=== PATIENT | male | born 1955 | race Caucasian/White ===

== ENCOUNTER 2018-05-06 09:20 | Inpatient (IN) ==
[2018-05-06] MEDS ORDERED: Piperacillin/Tazobactam 3.375 GM in Water for inj. (sterile) 20 ML 20 ML IVP ONE (09:35)
--- NOTE | 2018-05-06 09:38 | Emergency Department Note ---
Disposition Clinical Impression: Diabetic foot ulcer, Dehydration, Acute kidney injury Disposition: Admitted As Inpatient Condition: Fair Forms: ED Satisfaction Letter Time of Disposition: 10:58 Skin/Abscess/FB HPI Chief complaint: ED Skin/Abscess/Foreign Body Stated complaint: RLE Infection / Fever from Wound Care Time Seen by Provider: 05/06/18 09:25 Source: patient Mode of arrival: ambulatory Limitations: no limitations Nursing Notes Reviewed: Yes Vital Signs Reviewed: Yes HPI Narrative: 62-year-old male presents to the emergency department from the wound care clinic. He was sent here because he was hypotensive at 76/40. Patient in August stepped on a nail as he does have diabetic neuropathy. He has been being followed by wound care as well as Dr. Paulino and podiatry. They said that they are worried that the redness is now going across his foot away from the wound and they are worried that the wound may be tunneling and patient may be in septic shock as he was hypotensive. Speak with family they said these been a low more weak over the last 2-3 days. They said he has had a fever of 100.4 last 2 days which has been being controlled with Motrin. Patient says the redness has not been going up his legs. Has no shortness of breath no chest pain. Patient says that he has no pain anywhere else. Patient was recently started 2 days ago on by mouth Levaquin family does not notice any improvement after being started on that. Patient otherwise has no complaints. Including no chills, nausea, vomiting, headache, blurry vision, neck pain, back pain, chest pain, shortness of breath, abdominal pain, changes in bowel movements, pain with urination, pain or tingling going down the arms or legs. Home Medications Medication Instructions Recorded Confirmed Gemfibrozil [Lopid] 600 mg PO BID 01/12/18 01/12/18 Insulin Glargine [Lantus] 23 unit SQ HS 01/12/18 01/12/18 Pregabalin [Lyrica] 200 mg PO TID 01/12/18 01/12/18 Acetaminophen [Tylenol] 1,000 mg PO Q6HR PRN 05/06/18 05/06/18 Cetirizine HCl [Zyrtec] 10 mg PO DAILY 05/06/18 05/06/18 Lisinopril [Zestril] 10 mg PO DAILY 05/06/18 05/06/18 Metformin HCl [Metformin HCl] 1,000 mg PO BID 05/06/18 05/06/18 Potassium 99 mg PO DAILY 05/06/18 05/06/18 Allergies Allergy/AdvReac Type Severity Reaction Status Date / Time loratadine [From Claritin-D] Allergy Hives Verified 05/06/18 10:50 pseudoephedrine Allergy Hives Verified 05/06/18 10:50 [From Claritin-D] All systems ED: reviewed and negative except as stated. Review of Systems: As Per [facility] Past Medical History - Past Medical History Attestation: Yes The following information was validated with the patient. Source: patient Medical history: Reports: diabetes, hyperlipidemia, hypertension, kidney stones Surgical history: Reports: orthopedic, other Psychiatric history: Reports: no psych history - Social History Smoking Status: Never smoker Alcohol use: Reports: none Drug use: Reports: none Physical Exam - General Limitations: no limitations General appearance: alert - Head Head exam: atraumatic, normocephalic, normal inspection - Eye Eye exam: Present: normal appearance, PERRL, EOMI - ENT ENT exam: normal exam, normal oropharynx, mucous membranes moist - Neck Neck exam: Present: normal inspection, full ROM, trachea midline - Chest Chest inspection: Present: normal inspection, symmetric chest wall rise - Respiratory Respiratory exam: Present: normal lung sounds bilaterally - Cardiovascular Cardiovascular exam: Present: regular rate, normal rhythm, normal heart sounds - Abdominal Exam Abdominal exam: Present: soft, Non-Tender. Absent: tenderness, distention, guarding, rebound, rigidity - Extremities Exam Extremities exam: Present: normal inspection, full ROM. Absent: tenderness, pedal edema - Expanded Lower Extremity Exam Knee exam: Present: normal inspection, full ROM Lower leg exam: Present: normal inspection, full ROM Ankle exam: Present: normal inspection, full ROM Foot/toe exam: Present: full ROM, other (3 cm ulcer on the medial aspect of the right foot no active bleeding. Mild erythema spreading across the dorsal portion of the foot. Mild warm to touch. Good pedal pulses. No erythema moving up the leg. No signs of crepitus while palpating the foot.) Neurovascular/Tendon exam: Present: normal capillary refill. Absent: pulse deficit, motor deficit, sensory deficit, tendon deficit - Back Exam Back exam: Present: normal inspection, full ROM. Absent: tenderness, CVA tenderness (R), CVA tenderness (L) - Neurological Exam Neurological exam: Present: alert, oriented X3 - Skin Skin exam: Present: warm, dry, intact, normal color Course Course Narrative: We will treat patient as a sepsis alert as patient was hypotensive and did have history of fevers and there has known infection and patient was sent here for possible sepsis by podiatry. We will get what cultures, CBC, BMP, lactate, x- ray of the right foot, anaerobic wound culture, chest x-ray, EKG. We will start patient on Zosyn and vancomycin broad-spectrum. Patient originally in triage and at the wound care clinic was mildly hypotensive at 70 and 80 systolic. After coming back to the room he was 110/75 so I will only give the patient 1 L bolus of IV fluids as there is possible history of CHF according to family. We will reevaluate patient after the IV bolus to see if he needs more if his pressure is more stabilized. Vital Signs Temperature 97.8 F 05/06/18 09:30 Pulse Rate 68 05/06/18 09:30 Respiratory Rate 16 05/06/18 09:30 Blood Pressure 86/54 05/06/18 09:30 O2 Sat by Pulse Oximetry 95 05/06/18 09:30 Temperature 97.8 F 05/06/18 09:36 Pulse Rate 78 05/06/18 09:58 Respiratory Rate 16 05/06/18 09:58 Blood Pressure 104/63 05/06/18 09:58 O2 Sat by Pulse Oximetry 97 05/06/18 09:58 Oxygen Delivery Oxygen Delivery Room Air Skin/Abscess/Foreign Body - Medical Records Medical records reviewed: Yes I reviewed the patient's medical records. - Lab Data Lab results reviewed: Yes I reviewed the patient's lab results. Result diagrams: 05/06/18 09:40 Lab Results 05/06/18 05/06/18 05/06/18 Range/Units 09:40 09:40 09:40 WBC 9.0 (4.3-11.1) K/mcL RBC 4.49 (4.19-5.50) M/mcL Hgb 13.0 (12.9-16.9) g/dL Hct 39.0 (37.5-50.1) % MCV 86.9 (83.0-100.0) fL MCH 29.0 (28.0-33.3) pg MCHC 33.3 (31.6-35.5) g/dL RDW 12.5 (11.5-14.5) % Plt Count 260 (140-400) K/mcL MPV 10.4 (9.4-12.4) fL Immature Gran % 0.2 (0-4) % Seg Neutrophils % 77.0 % Lymphocytes % 12.2 % Monocytes % 10.1 % Eosinophils % 0.3 % Basophils % 0.2 % Neutrophils # 6.9 (1.6-8.9) K/mcL Lymphocytes # 1.1 (0.6-4.6) K/mcL Monocytes # 0.9 (0.0-1.3) K/mcL Eosinophils # 0.0 (0.0-0.6) K/mcL Basophils # 0.0 (0.0-0.2) K/mcL PT 13.5 H (9.4-12.1) Seconds INR 1.2 APTT 35.0 (26.0-36.0) Seconds Lactic Acid (0.5-2.2) mmol/L Troponin I < 0.03 (< 0.04) ng/mL 05/06/18 Range/Units 09:40 WBC (4.3-11.1) K/mcL RBC (4.19-5.50) M/mcL Hgb (12.9-16.9) g/dL Hct (37.5-50.1) % MCV (83.0-100.0) fL MCH (28.0-33.3) pg MCHC (31.6-35.5) g/dL RDW (11.5-14.5) % Plt Count (140-400) K/mcL MPV (9.4-12.4) fL Immature Gran % (0-4) % Seg Neutrophils % % Lymphocytes % % Monocytes % % Eosinophils % % Basophils % % Neutrophils # (1.6-8.9) K/mcL Lymphocytes # (0.6-4.6) K/mcL Monocytes # (0.0-1.3) K/mcL Eosinophils # (0.0-0.6) K/mcL Basophils # (0.0-0.2) K/mcL PT (9.4-12.1) Seconds INR APTT (26.0-36.0) Seconds Lactic Acid 1.1 (0.5-2.2) mmol/L Troponin I (< 0.04) ng/mL - Radiology Data Radiology results reviewed: Yes I reviewed the patient's radiology results. - EKG Data EKG attestation: Yes I reviewed and interpreted this EKG. EKG results narrative: EKG done at 0 954 review myself and attending shows sinus rhythm rate 77, CO interval to 14, QRS 77, QTC 4:[address] changes no acute T-wave changes no other signs of ischemia. First degree heart block no other blocks, no hypertrophy no strain. No WPW/Brugada/HOCM. No old EKG to compare with. Attestation Statement - Attestation Attestation: I, Jesse Adler DO, examined this patient [id number] and my medical decision-making was reviewed with Dr. Luis Alberto Mcallister, Resident Physician. I agree with the documented findings, disposition and treatment plan as described except to the extent set forth below. Please see my progress notes for details. 62-year-old male presents emergency room for evaluation of a wound infection in his right lower extremity. Patient stepped on a nail several months ago and has been managed by the outpatient podiatry for diabetic wound infection. Patient is been on antibiotics and was seen in the wound care clinic today and they are concerned about progression of the cellulitis and failed outpatient management. His blood pressure was low at the outside evaluation as well as on initial triage here. Patient is concerning for infection/sepsis at presentation. Lungs are clear to auscultation heart is regular abdomen is soft. Left lower extremity is unaffected. Pulses in the right lower extremity appear to be palpable in the DP and PT distribution. All the infection appears to be isolated the dorsal aspect of the foot over the MTP. He does not have any extension up into the hindfoot or into the ankle or calf. Patient does have warmth to that area. There is a wound over the medial aspect of the great toe of the MTP joint into the base of the foot. Patient will have wound culture sent blood cultures CBC chemistry and first dose of antibiotics along with plain film imaging of the right foot were ordered here in the emergency room. Admission process to be established at the request of podiatry after the labs have been resulted. Patient is otherwise currently stable. See detailed documentation of the physical exam, medical intervention, medical decision- making and disposition in the resident physician's note. No critical care provider the patient's treatment course at this time. 1055 Labs are unremarkable. Patient has had blood cultures collected. Vancomycin and Zosyn have been given. X-ray does show concerning for osteomyelitis. Patient will be admitted for continuation of care and evaluation. Hospitals has been paged for admission process. Expected ovary no other recommendations or concerns. Patient is otherwise clinically stable. Patient will be observed in emergency room until admission processes has been completed. Patient does have a newly elevated creatinine and low GFR. This is most likely secondary to antibiotics and decreased by mouth intake. Second liter of fluid will be given at this time. Patient does not meet any criteria for sepsis outside of initial hypotension. Patient does not show any signs of septic or severe septic presentation. Antibiotics blood cultures have been ordered. Admission process has been established. Dr. Spence has accepted without any reservation.
[2018-05-06] MEDS ORDERED: 0.9 % Sodium Chloride 1,000 ML IVC SCH (09:45)
[2018-05-06] MEDS ORDERED: 0.9 % Sodium Chloride 1,000 ML IVC ONE ×2 (09:47→10:57)
[2018-05-06 09:52] LABS: Basophils % 0.2 %; Eosinophils % 0.3 %; Immature Granulocytes % 0.2 % (0-4); Lymphocytes # 1.1 K/mcL (0.6-4.6); Lymphocytes % 12.2 %; Mean Corpuscular HGB Conc 33.3 g/dL (31.6-35.5); Mean Corpuscular Volume 86.9 fL (83.0-100.0); Mean Platelet Volume 10.4 fL (9.4-12.4); Monocytes # 0.9 K/mcL (0.0-1.3); Monocytes % 10.1 %; Neutrophils # 6.9 K/mcL (1.6-8.9); Platelet Count 260 K/mcL (140-400); Red Blood Count 4.49 M/mcL (4.19-5.50); Red Cell Distribution Width 12.5 % (11.5-14.5)
[2018-05-06 10:00] LABS: INR 1.2; Prothrombin Time 13.5 Seconds (9.4-12.1)
[2018-05-06 10:12] LABS: Troponin I < 0.03 ng/mL (< 0.04)
[2018-05-06 10:55] LABS: Alanine Aminotransferase 13 Units/L (7-52); Albumin 3.6 g/dL (3.5-5.7); Albumin/Globulin Ratio 0.9 (1.1-2.2); Alkaline Phosphatase 58 Units/L (34-104); Aspartate Amino Transferase 16 Units/L (13-39); BUN/Creatinine Ratio 28 (6-26); Bilirubin,Direct 0.1 mg/dL (0.0-0.2); Bilirubin,Indirect 0.2 mg/dL (0.0-1.2); Bilirubin,Total 0.3 mg/dL (0.3-1.0); Blood Urea Nitrogen 52 mg/dL (8-23); Carbon Dioxide 17 mEq/L (23-29); Chloride 104 mEq/L (98-107); Globulin 3.9 g/dL (2.4-3.5); Glucose 80 mg/dL (70-105); Magnesium 1.9 mg/dL (1.6-2.6); Osmolality,Calculated 291 (280-300); Phosphorous 3.6 mg/dL (2.7-4.5); Potassium 4.4 mEq/L (3.5-5.1); Sodium 134 mEq/L (136-145); Total Protein 7.5 g/dL (6.4-8.9); eGFR For Non-African Americans 38 (> 60)
--- NOTE | 2018-05-06 11:05 | Emergency Department Note ---
Disposition Clinical Impression: Diabetic foot ulcer, Dehydration, Acute kidney injury Disposition: Admitted As Inpatient Condition: Fair Referrals: Delio Jimenez DO [Primary Care Provider] - Forms: ED Satisfaction Letter Time of Disposition: 11:06 General Adult HPI - General Chief complaint: ED Skin/Abscess/Foreign Body Stated complaint: RLE Infection / Fever from Wound Care Time Seen by Provider: 05/06/18 09:25 Source: patient Mode of arrival: ambulatory Limitations: no limitations - History of Present Illness Pain Scale: 0 - Related Data Home Medications Medication Instructions Recorded Confirmed Gemfibrozil [Lopid] 600 mg PO BID 01/12/18 01/12/18 Insulin Glargine [Lantus] 23 unit SQ HS 01/12/18 01/12/18 Pregabalin [Lyrica] 200 mg PO TID 01/12/18 01/12/18 Acetaminophen [Tylenol] 1,000 mg PO Q6HR PRN 05/06/18 05/06/18 Cetirizine HCl [Zyrtec] 10 mg PO DAILY 05/06/18 05/06/18 Lisinopril [Zestril] 10 mg PO DAILY 05/06/18 05/06/18 Metformin HCl [Metformin HCl] 1,000 mg PO BID 05/06/18 05/06/18 Potassium 99 mg PO DAILY 05/06/18 05/06/18 Allergies Allergy/AdvReac Type Severity Reaction Status Date / Time loratadine [From Claritin-D] Allergy Hives Verified 05/06/18 10:50 pseudoephedrine Allergy Hives Verified 05/06/18 10:50 [From Claritin-D] Past Medical History - Past Medical History Medical history: Reports: diabetes, hyperlipidemia, hypertension, kidney stones Surgical history: Reports: orthopedic, other Psychiatric history: Reports: no psych history - Social History Smoking Status: Never smoker Alcohol use: Reports: none Drug use: Reports: none Physical Exam - General Limitations: no limitations General appearance: alert Course Vital Signs Temperature 97.8 F 05/06/18 09:30 Pulse Rate 68 05/06/18 09:30 Respiratory Rate 16 05/06/18 09:30 Blood Pressure 86/54 05/06/18 09:30 O2 Sat by Pulse Oximetry 95 05/06/18 09:30 Temperature 97.8 F 05/06/18 09:36 Pulse Rate 78 05/06/18 09:58 Respiratory Rate 16 05/06/18 09:58 Blood Pressure 104/63 05/06/18 09:58 O2 Sat by Pulse Oximetry 97 05/06/18 09:58 Oxygen Delivery Oxygen Delivery Room Air Medical Decision Making - Lab Data Result diagrams: 05/06/18 09:40 05/06/18 09:40 Lab Results 05/06/18 05/06/18 05/06/18 Range/Units 09:40 09:40 09:40 WBC 9.0 (4.3-11.1) K/mcL RBC 4.49 (4.19-5.50) M/mcL Hgb 13.0 (12.9-16.9) g/dL Hct 39.0 (37.5-50.1) % MCV 86.9 (83.0-100.0) fL MCH 29.0 (28.0-33.3) pg MCHC 33.3 (31.6-35.5) g/dL RDW 12.5 (11.5-14.5) % Plt Count 260 (140-400) K/mcL MPV 10.4 (9.4-12.4) fL Immature Gran % 0.2 (0-4) % Seg Neutrophils % 77.0 % Lymphocytes % 12.2 % Monocytes % 10.1 % Eosinophils % 0.3 % Basophils % 0.2 % Neutrophils # 6.9 (1.6-8.9) K/mcL Lymphocytes # 1.1 (0.6-4.6) K/mcL Monocytes # 0.9 (0.0-1.3) K/mcL Eosinophils # 0.0 (0.0-0.6) K/mcL Basophils # 0.0 (0.0-0.2) K/mcL PT 13.5 H (9.4-12.1) Seconds INR 1.2 APTT 35.0 (26.0-36.0) Seconds Sodium 134 L (136-145) mEq/L Potassium 4.4 (3.5-5.1) mEq/L Chloride 104 (98-107) mEq/L Carbon Dioxide 17 L (23-29) mEq/L BUN 52 H (8-23) mg/dL Creatinine 1.84 H (0.70-1.30) mg/dL Est GFR ( Amer) 46 L (> 60) Est GFR (Non-Af Amer) 38 L (> 60) BUN/Creatinine Ratio 28 H (6-26) Glucose 80 (70-105) mg/dL Calculated Osmolality 291 (280-300) Lactic Acid (0.5-2.2) mmol/L Calcium 9.0 (8.6-10.3) mg/dL Phosphorus 3.6 (2.7-4.5) mg/dL Magnesium 1.9 (1.6-2.6) mg/dL Total Bilirubin 0.3 (0.3-1.0) mg/dL Direct Bilirubin 0.1 (0.0-0.2) mg/dL Indirect Bilirubin 0.2 (0.0-1.2) mg/dL AST 16 (13-39) Units/L ALT 13 (7-52) Units/L Alkaline Phosphatase 58 (34-104) Units/L Troponin I < 0.03 (< 0.04) ng/mL Serum Total Protein 7.5 (6.4-8.9) g/dL Albumin 3.6 (3.5-5.7) g/dL Globulin 3.9 H (2.4-3.5) g/dL Albumin/Globulin Ratio 0.9 L (1.1-2.2) 05/06/18 Range/Units 09:40 WBC (4.3-11.1) K/mcL RBC (4.19-5.50) M/mcL Hgb (12.9-16.9) g/dL Hct (37.5-50.1) % MCV (83.0-100.0) fL MCH (28.0-33.3) pg MCHC (31.6-35.5) g/dL RDW (11.5-14.5) % Plt Count (140-400) K/mcL MPV (9.4-12.4) fL Immature Gran % (0-4) % Seg Neutrophils % % Lymphocytes % % Monocytes % % Eosinophils % % Basophils % % Neutrophils # (1.6-8.9) K/mcL Lymphocytes # (0.6-4.6) K/mcL Monocytes # (0.0-1.3) K/mcL Eosinophils # (0.0-0.6) K/mcL Basophils # (0.0-0.2) K/mcL PT (9.4-12.1) Seconds INR APTT (26.0-36.0) Seconds Sodium (136-145) mEq/L Potassium (3.5-5.1) mEq/L Chloride (98-107) mEq/L Carbon Dioxide (23-29) mEq/L BUN (8-23) mg/dL Creatinine (0.70-1.30) mg/dL Est GFR ( Amer) (> 60) Est GFR (Non-Af Amer) (> 60) BUN/Creatinine Ratio (6-26) Glucose (70-105) mg/dL Calculated Osmolality (280-300) Lactic Acid 1.1 (0.5-2.2) mmol/L Calcium (8.6-10.3) mg/dL Phosphorus (2.7-4.5) mg/dL Magnesium (1.6-2.6) mg/dL Total Bilirubin (0.3-1.0) mg/dL Direct Bilirubin (0.0-0.2) mg/dL Indirect Bilirubin (0.0-1.2) mg/dL AST (13-39) Units/L ALT (7-52) Units/L Alkaline Phosphatase (34-104) Units/L Troponin I (< 0.04) ng/mL Serum Total Protein (6.4-8.9) g/dL Albumin (3.5-5.7) g/dL Globulin (2.4-3.5) g/dL Albumin/Globulin Ratio (1.1-2.2) Attestation Statement - Attestation Attestation: I, Jesse Adler DO, examined this patient [id number] and my medical decision-making was reviewed with Dr. Luis Alberto Mcallister, Resident Physician. I agree with the documented findings, disposition and treatment plan as described except to the extent set forth below. Please see my progress notes for details. 62-year-old male presents emergency room for evaluation of a wound infection in his right lower extremity. Patient stepped on a nail several months ago and has been managed by the outpatient podiatry for diabetic wound infection. Patient is been on antibiotics and was seen in the wound care clinic today and they are concerned about progression of the cellulitis and failed outpatient management. His blood pressure was low at the outside evaluation as well as on initial triage here. Patient is concerning for infection/sepsis at presentation. Lungs are clear to auscultation heart is regular abdomen is soft. Left lower extremity is unaffected. Pulses in the right lower extremity appear to be palpable in the DP and PT distribution. All the infection appears to be isolated the dorsal aspect of the foot over the MTP. He does not have any extension up into the hindfoot or into the ankle or calf. Patient does have warmth to that area. There is a wound over the medial aspect of the great toe of the MTP joint into the base of the foot. Patient will have wound culture sent blood cultures CBC chemistry and first dose of antibiotics along with plain film imaging of the right foot were ordered here in the emergency room. Admission process to be established at the request of podiatry after the labs have been resulted. Patient is otherwise currently stable. See detailed documentation of the physical exam, medical intervention, medical decision- making and disposition in the resident physician's note. No critical care provider the patient's treatment course at this time. 1055 Labs are unremarkable. Patient has had blood cultures collected. Vancomycin and Zosyn have been given. X-ray does show concerning for osteomyelitis. Patient will be admitted for continuation of care and evaluation. Hospitals has been paged for admission process. Expected ovary no other recommendations or concerns. Patient is otherwise clinically stable. Patient will be observed in emergency room until admission processes has been completed. Patient does have a newly elevated creatinine and low GFR. This is most likely secondary to antibiotics and decreased by mouth intake. Second liter of fluid will be given at this time. Patient does not meet any criteria for sepsis outside of initial hypotension. Patient does not show any signs of septic or severe septic presentation. Antibiotics blood cultures have been ordered. Admission process has been established. Dr. Spence has accepted without any reservation.
[2018-05-06 11:35] LABS: Bilirubin,Urine Negative (Negative); Blood,Urine Negative (Negative); Clarity,Urine Clear (Clear); Color,Urine Yellow (Yellow); Glucose,Urine (UA) Normal (Normal); Ketones,Urine Negative (Negative); Leukocyte Esterase,Urine Negative (Negative); Nitrite,Urine Negative (Negative); PH,Urine 5.5 pH Units (5.0-8.0); Protein,Urine 30 mg/dL (Neg-Trace); Specific Gravity,Urine 1.019 (1.010-1.025); Urobilinogen,Urine Normal (Normal)
[2018-05-06 11:38] LABS: Bacteria,Urine None Seen per hpf (None-Few); Hyaline Casts,Urine None Seen per lpf (None-Few); Squamous Epithelial Cell,Urine Many per lpf (None-Few); WBC,Urine 0-3 per hpf (0-3)
[2018-05-06] MEDS ORDERED: *HR* HYDROcodone/Acet 5/325 mg TABLET PO PRN (11:49)
[2018-05-06] MEDS ORDERED: Naloxone 0.4 MG/ML INJ IVP PRN (11:49)
[2018-05-06] MEDS ORDERED: *HR* OxyCODONE Immed Rel 5 MG TABLET PO PRN (11:49)
[2018-05-06] MEDS ORDERED: D5% in Water 1,000 ML IVC PRN (11:59)
[2018-05-06] MEDS ORDERED: *HR* Dextrose 50 % in Water (Syg) 50 ML SYRINGE IVP PRN (11:59)
[2018-05-06] MEDS ORDERED: Dextrose Gel 15 GM/37.5 ML TUBE PO PRN ×2 (11:59)
--- NOTE | 2018-05-06 13:13 | Internal Med History&Physical ---
Date of Encounter: 05/06/18 Time of Encounter: 11:50 Internal Medicine - H&P: HPI Chief complaint: R foot wound and redness Admitted From: Home History of present illness: Mr. Pablo is a 62 year old male with past history of diabetes, right foot wound since August 2017 after stepping on a nail complicate by poor healing, presented from the wound clinic for the concern of cellulitis. Patient states that he had been on antibiotics for the last 2 days for worsening swelling and redness over the dorsum of his right foot and was seen by Podiatry in clinic today. At the clinic, it was noted that his BP was also low hence was sent to the ED for further evaluation. Patient states that he has been having intermittent fever as high as 101.4 without chills. No obvious discharges were seen from his foot wound. No chest pain, shortness of breath, cough, sputum production, abdominal pain, or dysuria. His appetite has been poor and has not been drinking as much as he should for the last several days. In the ED, blood pressure was 86/54 but otherwise afebrile without tachycardia. Labwork showed normal white blood cell count, but creatinine was elevated at 1.84. X-ray of the right foot revealed medial forefoot soft tissue ulceration with findings concerning for osteomyelitis of the first metatarsal head. Urinalysis was negative for leukocyte esterase or nitrites. Patient was given vancomycin/Zosyn , 3 L of normal saline, and admitted for further management. Past Med Surg Social Fam HX - Past Medical History Attestation: Yes The following information was validated with the patient. Medical history: diabetes, hyperlipidemia, hypertension, kidney stones Psychiatric history: no psych history - Past Surgical History Surgical History: orthopedic, other - Social History Smoking Status: Never smoker Alcohol use: none Drug use: none - Family History Father Living Status: Hx Family Cardiac Disorders: Yes (HTN) Hx Family Respiratory Disorders: No Hx Family Cancer: Yes Hx Family GI Disorders: No Hx Family Endocrine Disorder: No Hx Family Neuromuscular Disorders: No Hx Family Neurologic Disorders: No Hx Family HEENT Disorders: No Hx Family Autoimmune Disorders: No Mother Living Status: Hx Family Cardiac Disorders: No Hx Family Respiratory Disorders: No Hx Family Cancer: Yes (Breast) Hx Family Endocrine Disorder: Yes (DM) Internal Medicine - H&P: Meds Gemfibrozil [Lopid] 600 mg PO BID 01/12/18 [History] Insulin Glargine [Lantus] 70 unit SQ HS 01/12/18 [History] Pregabalin [Lyrica] 200 mg PO TID 01/12/18 [History] Acetaminophen [Tylenol] 1,000 mg PO Q6HR PRN 05/06/18 [History] Cetirizine HCl [Zyrtec] 10 mg PO DAILY 05/06/18 [History] Lisinopril [Zestril] 10 mg PO DAILY 05/06/18 [History] Metformin HCl [Metformin HCl] 1,000 mg PO BID 05/06/18 [History] Potassium 99 mg PO DAILY 05/06/18 [History] 3 Allergy/AdvReac Type Severity Reaction Status Date / Time loratadine [From Claritin-D] Allergy Hives Verified 05/06/18 10:50 pseudoephedrine Allergy Hives Verified 05/06/18 10:50 [From Claritin-D] All Systems PM: A 10-system review of systems was performed and is negative for pertinent findings except as documented above in the HPI. - Constitutional Vitals: Temp Pulse Resp BP Pulse Ox 97.8 F 78 16 104/63 97 05/06/18 09:36 05/06/18 09:58 05/06/18 09:58 05/06/18 09:58 05/06/18 09:58 Exam: General: Alert and oriented, not in acute distress. HEENT:EOM, pupils equal, round and reactive. Cardiovascular:Normal S1 & S2, No JVD. Pulse regular. Lungs: clear to auscultation, no wheezes/rales Abdomen:Soft, non-tender, no rigidity. Extremities: Ulceration noted on the medial aspect of the right foot associated with surrounding erythema Neurological:Normal cognition and motor skills. Non-focal Skin:Normal color, no rash, no lesions. Pulses:Carotid and radial pulses normal +2. Rest of the physical exam is non contributory Internal Med - H&P Results - Labs CBC & Chem 7: 05/06/18 09:40 05/06/18 09:40 - Assessment and plan (1) Foot osteomyelitis, right Current Visit: Yes Status: Acute Assessment and plan: Presented with poorly healing wound and surrounding cellulitis of the right foot , x-ray finding concerning for first metatarsal head osteomyelitis started on vancomycin/Zosyn in the ED, continue check ESR, CRP blood and wound culture taken in the ER, follow up podiatry consulted Qualifiers: Osteomyelitis type: unspecified type Qualified Code(s): M86.9 - Osteomyelitis, unspecified (2) Acute on chronic kidney failure Current Visit: Yes Status: Acute Assessment and plan: IV fluid Renally adjusted antibiotics, avoid nephrotoxins Qualifiers: Acute renal failure type: unspecified Chronic kidney disease stage: stage 3 (moderate) Qualified Code(s): N17.9 - Acute kidney failure, unspecified; N18.3 - Chronic kidney disease, stage 3 (moderate) (3) Hypertension Current Visit: No Status: Acute Assessment and plan: Hold off on lisinopril in view of hypotension and STERLING Qualifiers: Hypertension type: essential hypertension Qualified Code(s): I10 - Essential (primary) hypertension (4) Diabetes mellitus Current Visit: Yes Status: Acute Assessment and plan: A1c was 9.3 in December but he states that his A1c has since improved 6.4. 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
[2018-05-06] MEDS: Pregabalin 50 MG CAPSULE PO SCH ×2 (14:48→22:04)
[2018-05-06] MEDS: Acetaminophen 325 MG TABLET PO PRN ×2 (14:48→22:05)
[2018-05-06] MEDS: 0.9 % Sodium Chloride 1,000 ML IVC SCH (14:49)
[2018-05-06] MEDS: Piperacillin/Tazobactam 3.375 GM in 0.9 % Sodium Chloride Mini Bag 100 ML IVPB SCH (14:49)
[2018-05-06] MEDS: Insulin LISPRO 300 UNITS/3 ML VIAL SQ SCH (16:50)
[2018-05-06] MEDS: *HR* Heparin 5,000 UNIT/ML VIAL SQ SCH (16:51)
[2018-05-06] MEDS ORDERED: Gadolinium Contrast Agent (WT Based) IV PRN (17:33)
[2018-05-06] MEDS ORDERED: Insulin DETEMIR 100 UNIT/ML X5UNITS SQ SCH (21:00)
[2018-05-06] MEDS ORDERED: Insulin LISPRO 300 UNITS/3 ML VIAL SQ SCH (21:00)
[2018-05-06] MEDS ORDERED: Piperacillin/Tazobactam 3.375 GM in 0.9 % Sodium Chloride Mini Bag 100 ML IVPB SCH (22:00)
[2018-05-07 00:32] LABS: Basophils % 0.4 %; Eosinophils # 0.1 K/mcL (0.0-0.6); Eosinophils % 1.5 %; Hematocrit 32.8 % (37.5-50.1); Immature Granulocytes % 0.4 % (0-4); Lymphocytes # 1.1 K/mcL (0.6-4.6); Lymphocytes % 14.3 %; Mean Corpuscular HGB Conc 34.5 g/dL (31.6-35.5); Mean Corpuscular Hemoglobin 29.3 pg (28.0-33.3); Mean Platelet Volume 10.4 fL (9.4-12.4); Monocytes # 0.8 K/mcL (0.0-1.3); Monocytes % 11.2 %; Neutrophils # 5.4 K/mcL (1.6-8.9); Platelet Count 236 K/mcL (140-400); Red Blood Count 3.86 M/mcL (4.19-5.50); Red Cell Distribution Width 12.5 % (11.5-14.5); Segmented Neutrophils % 72.2 %
[2018-05-07 00:38] LABS: Hemoglobin 11.3 g/dL (12.9-16.9)
[2018-05-07 00:40] LABS: Calcium 8.1 mg/dL (8.6-10.3); Magnesium 1.8 mg/dL (1.6-2.6); Potassium 3.9 mEq/L (3.5-5.1)
[2018-05-07] MEDS: Piperacillin/Tazobactam 3.375 GM in 0.9 % Sodium Chloride Mini Bag 100 ML IVPB SCH ×3 (00:46→15:25)
[2018-05-07] MEDS: *HR* Heparin 5,000 UNIT/ML VIAL SQ SCH ×2 (04:58→18:01)
[2018-05-07] MEDS: 0.9 % Sodium Chloride 1,000 ML IVC SCH ×2 (04:59→20:01)
--- NOTE | 2018-05-07 07:00 | Podiatry Consult Note ---
Date of Encounter: 05/07/18 Time of Encounter: 06:05 Assessment and Plan (1) Chronic ulcer of right foot with fat layer exposed Current visit: Yes Status: Acute Reviewed with patient his MRI and I reviewed the images. Discussed my findings and his treatment options. We discussed surgery versus IV antibiotics and a combination of both. He is going to proceed with surgical intervention including right foot incision and drainage and debridement of bone Nature of the procedure, risks versus benefits potential complications and consequences of surgery discussed at length including but not limited to persistent infection bleeding swelling numbness tingling nerve damage loss of partial foot/ leg heart attack blood clot need for further surgery. He understood that this could be a staged procedure and he could require multiple trips to the operating room and may still lose part of his foot or leg as he is high risk despite having surgery. He could also require reconstructive surgery in the future. All of his questions were answered and the informed consent was signed. NPO. to OR later today (2) Osteomyelitis Current visit: Yes Status: Acute see above Qualifiers: Osteomyelitis type: other acute Osteomyelitis location: foot Laterality: right Qualified Code(s): M86.171 - Other acute osteomyelitis, right ankle and foot (3) Abscess of right foot Current visit: Yes Status: Acute see above History of Present Illness HPI: Mr. Pablo is a 62 year old diabetic male who was admitted with a right diabetic foot infection. Patient is known to me in wound care. His wound has been progressively healing,however, over the last few days he developed a fever and erythema of the right foot. He did not improve on oral antibiotics and was seen in wound care yesterday and sent to the emergency room for admission. An MRI was done showing abscess and osteomyelitis. He has been receiving IV antibiotics. He had had 2 previous surgeries on this right foot earlier this year with Dr. Carranza and Dr. Yusuf. Past Med Surg Social Fam HX - Past Medical History Medical history: diabetes, hyperlipidemia, hypertension, kidney stones Psychiatric history: no psych history - Past Surgical History Surgical History: orthopedic, other - Social History Smoking Status: Never smoker Alcohol use: none Drug use: none - Family History Father Living Status: Hx Family Cardiac Disorders: Yes (HTN) Hx Family Respiratory Disorders: No Hx Family Cancer: Yes Hx Family GI Disorders: No Hx Family Endocrine Disorder: No Hx Family Neuromuscular Disorders: No Hx Family Neurologic Disorders: No Hx Family HEENT Disorders: No Hx Family Autoimmune Disorders: No Mother Living Status: Hx Family Cardiac Disorders: No Hx Family Respiratory Disorders: No Hx Family Cancer: Yes (Breast) Hx Family Endocrine Disorder: Yes (DM) Medications and Allergies Gemfibrozil [Lopid] 600 mg PO BID 01/12/18 [History] Insulin Glargine [Lantus] 70 unit SQ HS 01/12/18 [History] Pregabalin [Lyrica] 200 mg PO TID 01/12/18 [History] Acetaminophen [Tylenol] 1,000 mg PO Q6HR PRN 05/06/18 [History] Cetirizine HCl [Zyrtec] 10 mg PO DAILY 05/06/18 [History] Lisinopril [Zestril] 10 mg PO DAILY 05/06/18 [History] Metformin HCl [Metformin HCl] 1,000 mg PO BID 05/06/18 [History] Potassium 99 mg PO DAILY 05/06/18 [History] 3 Allergy/AdvReac Type Severity Reaction Status Date / Time loratadine [From Claritin-D] Allergy Hives Verified 05/06/18 10:50 pseudoephedrine Allergy Hives Verified 05/06/18 10:50 [From Claritin-D] All Systems Reviewed: The remainder of the systems were reviewed and are negative - Constitutional Constitutional: fever(s) - Cardiovascular Cardiovascular: no chest pain, no dyspnea - Respiratory Respiratory: no cough - Musculoskeletal Musculoskeletal: numbness Physical Exam - Constitutional Vitals: Temp Pulse Resp BP Pulse Ox 98.8 F 83 18 131/76 95 05/07/18 04:30 05/07/18 04:30 05/07/18 04:30 05/07/18 04:30 05/07/18 04:30 General appearance: no acute distress Exam: Well-developed and nourished male in no acute distress Vascular: Capillary refill time less than 3 seconds 5 digits right foot. Right foot is warm to touch. Medial foot wound from the first MTP joint to the mid foot measures 9 cm x 6 cm x 0.3 cm. Mild edema. There is erythema on the dorsal aspect of the foot the second interspace. Diminished protective sensation. Results - Labs Result Diagrams: 05/07/18 00:08 05/07/18 00:08 Labs: Abnormal lab results RBC 3.86 M/mcL (4.19-5.50) L 05/07/18 00:08 Hgb 11.3 g/dL (12.9-16.9) L D 05/07/18 00:08 Hct 32.8 % (37.5-50.1) L 05/07/18 00:08 ESR 93 mm/hr (0-10) H 05/06/18 13:40 PT 13.5 Seconds (9.4-12.1) H 05/06/18 09:40 Sodium 134 mEq/L (136-145) L 05/07/18 00:08 Carbon Dioxide 19 mEq/L (23-29) L 05/07/18 00:08 BUN 42 mg/dL (8-23) H 05/07/18 00:08 Creatinine 1.48 mg/dL (0.70-1.30) H 05/07/18 00:08 Est GFR ( Amer) 59 (> 60) L 05/07/18 00:08 Est GFR (Non-Af Amer) 48 (> 60) L 05/07/18 00:08 BUN/Creatinine Ratio 28 (6-26) H 05/07/18 00:08 Glucose 141 mg/dL (70-105) H 05/07/18 00:08 Calcium 8.1 mg/dL (8.6-10.3) L 05/07/18 00:08 C-Reactive Protein 138 mg/L (Less than 10) H 05/06/18 13:40 Globulin 3.9 g/dL (2.4-3.5) H 05/06/18 09:40 Albumin/Globulin Ratio 0.9 (1.1-2.2) L 05/06/18 09:40 Urine Protein 30 mg/dL (Neg-Trace) H 05/06/18 11:28 Urine Microscopic RBC 5-15 per hpf (0-3) H 05/06/18 11:28 Ur Squamous Epith Cells Many per lpf (None-Few) H 05/06/18 11:28 H & H 05/07/18 Range/Units 00:08 Hgb 11.3 L D (12.9-16.9) g/dL Hct 32.8 L (37.5-50.1) % All other labs normal. - Diagnostic results Ankle/Foot MRI: report reviewed, image reviewed Consult Discharge Plan - Plan Referrals: Delio Jimenez DO [Primary Care Provider] -
[2018-05-07] MEDS: Insulin LISPRO 300 UNITS/3 ML VIAL SQ SCH ×3 (07:35→18:01)
[2018-05-07] MEDS: Pregabalin 50 MG CAPSULE PO SCH ×3 (07:45→22:33)
[2018-05-07] MEDS ORDERED: Loratadine 10 MG TABLET PO SCH (09:00)
[2018-05-07] MEDS ORDERED: 0.9 % Sodium Chloride 1,000 ML IVC SCH (10:30)
--- NOTE | 2018-05-07 12:17 | Internal Med Progress Note ---
Hospitalist Progress Note - Encounter Date of Encounter: 05/07/18 Time of Encounter: 09:00 - Subjective Interval History: Pt laying on bed in NAD. Fever has improved. Plan for I/D by podiatry today. - Exam Vitals: Temp Pulse Resp BP Pulse Ox 98.7 F 78 16 133/74 94 05/07/18 11:06 05/07/18 11:06 05/07/18 11:06 05/07/18 11:06 05/07/18 11:06 Exam: General: Alert and oriented, not in acute distress. HEENT:EOM, pupils equal, round and reactive. Cardiovascular:Normal S1 & S2, No JVD. Pulse regular. Lungs: clear to auscultation, no wheezes/rales Abdomen:Soft, non-tender, no rigidity. Extremities: Ulceration noted on the medial aspect of the right foot associated with surrounding erythema Neurological:Normal cognition and motor skills. Non-focal Skin:Normal color, no rash, no lesions. Pulses:Carotid and radial pulses normal +2. Rest of the physical exam is non contributory - Assessment and Plan (1) Hypertension Current Visit: No Status: Acute Assessment and Plan: Hold off on lisinopril in view of hypotension and STERLING (2) DVT prophylaxis Current Visit: No Status: Acute Assessment and Plan: Subcutaneous heparin (3) Foot osteomyelitis, right Current Visit: Yes Status: Acute Assessment and Plan: Presented with poorly healing wound and surrounding cellulitis of the right foot , x-ray finding concerning for first metatarsal head osteomyelitis started on vancomycin/Zosyn in the ED, continue check ESR, CRP blood and wound culture taken in the ER, follow up podiatry consulted, plan for debridement today (4) Diabetes mellitus Current Visit: Yes Status: Acute Assessment and Plan: A1c was 9.3 in December but he states that his A1c has since improved 6.4. On metformin and Lantus 70 units at bedtime Hold off on metformin, resume Levemir 50 units at bedtime with low-dose line scale coverage ADA diet, Accu-Cheks before meals and at bedtime (5) Acute on chronic kidney failure Current Visit: Yes Status: Acute Assessment and Plan: Cont IV fluid Renally adjusted antibiotics, avoid nephrotoxins Hold home med lisinopril now. - Time Spent with Patient Total time spent is greater than 50% in coordination of care (as documented) at patient's floor/unit and/or counseling patient: 40 min Greater than 35 minutes Plan of Care Discussed with: patient Internal Medicine: Result - Labs CBC & Chem 7: 05/07/18 00:08 05/07/18 00:08 Labs: Short CBC 05/07/18 Range/Units 00:08 WBC 7.4 (4.3-11.1) K/mcL Hgb 11.3 L D (12.9-16.9) g/dL Hct 32.8 L (37.5-50.1) % Plt Count 236 (140-400) K/mcL Neutrophils # 5.4 (1.6-8.9) K/mcL BMP 05/07/18 00:08 Sodium 134 L Potassium 3.9 Chloride 107 Carbon Dioxide 19 L BUN 42 H Creatinine 1.48 H Glucose 141 H Calcium 8.1 L - ABG Interpretation ABG results: PT/INR, D-dimer PT 13.5 Seconds (9.4-12.1) H 05/06/18 09:40 - Impressions Impressions Foot MRI 05/06/18 17:33 IMPRESSION: 1. Large ulceration along the plantar medial foot with underlying marrow signal changes of the 1st metatarsal head and base of the proximal 1st phalanx compatible with osteomyelitis. Marrow edema within the distal phalanx of the great toe without corresponding T1 signal abnormality may reflect reactive osteitis versus very early changes of osteomyelitis. 2. Redemonstration of flattening of the 2nd metatarsal head which may reflect sequela of prior subchondral collapse. There is now marrow edema and postcontrast enhancement the 2nd metatarsal head and base of the 2nd proximal phalanx which is most compatible with for osteomyelitis given the adjacent soft tissue changes. 3. Complex rim enhancing fluid collection in the 2nd interspace measuring 1.0 x 1.8 x 1.2 cm most compatible with abscess. 4. Marrow signal changes of the medial and lateral hallux sesamoids compatible with osteomyelitis. 5. Intrasubstance signal and postcontrast enhancement involving the flexor hallucis longus tendon at the level of the ulceration suggestive of infectious involvement of the tendon. 6. Mild tenosynovitis of the 2nd flexor compartment the level of the 2nd metatarsal neck.. D/ / Kenneth Strauss MD / Kenneth Strauss MD Interpreting Provider: Kenneth Strauss MD Consult Discharge Plan - Plan Referrals: Delio Jimenez DO [Primary Care Provider] - (1) Hypertension Qualifiers: Hypertension type: essential hypertension Qualified Code(s): I10 - Essential (primary) hypertension (3) Foot osteomyelitis, right Qualifiers: Osteomyelitis type: unspecified type Qualified Code(s): M86.9 - Osteomyelitis , unspecified (4) Diabetes mellitus Qualifiers: Diabetes mellitus type: type 2 Diabetes mellitus retirement insulin use: with retirement use Diabetes mellitus complication status: with unspecified complications Qualified Code(s): E11.8 - Type 2 diabetes mellitus with unspecified complications; Z79.4 - assisted (current) use of insulin (5) Acute on chronic kidney failure Qualifiers: Acute renal failure type: unspecified Chronic kidney disease stage: stage 3 ( moderate) Qualified Code(s): N17.9 - Acute kidney failure, unspecified; N18.3 - Chronic kidney disease, stage 3 (moderate)
[2018-05-07] MEDS ORDERED: Lidocaine -MPF 2% 2 ML VIAL ONE (17:06)
[2018-05-07] MEDS ORDERED: Propofol 500 MG/50 ML INFUS..BTL ONE (17:07)
--- NOTE | 2018-05-07 17:14 | Anesthesia Evaluation PreOp ---
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 HX Other Medical History: Diabetes Type II, GERD Anesthesia History: No Prior Anesthetic Complications Alcohol Use: none Drug use: none Medications and Allergies Gemfibrozil [Lopid] 600 mg PO BID 01/12/18 [History] Insulin Glargine [Lantus] 70 unit SQ HS 01/12/18 [History] Pregabalin [Lyrica] 200 mg PO TID 01/12/18 [History] Acetaminophen [Tylenol] 1,000 mg PO Q6HR PRN 05/06/18 [History] Cetirizine HCl [Zyrtec] 10 mg PO DAILY 05/06/18 [History] Lisinopril [Zestril] 10 mg PO DAILY 05/06/18 [History] Metformin HCl [Metformin HCl] 1,000 mg PO BID 05/06/18 [History] Potassium 99 mg PO DAILY 05/06/18 [History] 3 Allergy/AdvReac Type Severity Reaction Status Date / Time loratadine [From Claritin-D] Allergy Hives Verified 05/06/18 10:50 pseudoephedrine Allergy Hives Verified 05/06/18 10:50 [From Claritin-D] - Meds/Allergy Pre-op Review Medications Reviewed: Yes Allergies Reviewed: Yes Beta Blockers on Current Med List: No Anesthesia Results - Labs 05/07/18 00:08 05/07/18 00:08 - Imaging EKG: report reviewed (SR) Additional studies: ECHO 2018 EF 60% moderate diastolic dysfunction Anesthesia Exam Vital Signs/O2 Sat/Glucose, Most Current Temp Pulse Resp BP Pulse Ox 05/07/18 17:03 83 18 164/87 94 05/07/18 16:48 100.3 F H 85 19 167/77 89 Height: 5'9 Weight: 215 lbs NPO (# of Hours): MN Pain Scale: 0 - HEENT Pupil (Motor): Pupils equal, EOMI Mallampati: III Teeth: Normal Oral Opening: Less than or equal to 3 - DISC RULER OPERATOR LOC: Oriented DISC RULER OPERATOR Motor: Normal RUE, Normal LUE, Normal RLE, Normal LLE, Normal Face DISC RULER OPERATOR Sensory: Normal: RUE, LUE, RLE, LLE, Face - Cardiac Rhythm: Regular Murmur: None JVD: No Carotid Bruit: No - Pulmonary Breath Sounds: bilateral Clear Respiratory Effort: Symmetrical Anesthesia Assess/Plan ASA Score: 3 (HTN DM) Modified Gabriella Scale for Level of Consciousness: Cooperative, oriented, and tranquil Anesthetic Plan: MAC Monitoring Plan: Standard Monitors Recovery Plan: Other (Discussed MAC, possible GA, agrees to proceed)
--- NOTE | 2018-05-07 17:29 | Operative Note ---
Date of procedure: 05/07/18 Pre-op diagnosis: right foot osteomyelitis and abscess Post-op diagnosis: same Procedure: Incision and drainage right foot, debridement of bone right foot (right 1st met and proximal phalanx, 2nd met and proximal phalanx) Implants: none Complications: none Anesthesia: IV sedation Local Anesthetics: 1% Lidocaine HCL SubQ (cc) Surgeon: Gabriel Yanez Was there an life science research assistant present: No Estimated blood loss (cc): 50 Tourniquet Time (Minutes): 9 Specimen: none Condition: stable Disposition: PACU Procedure in Detail: Indications: 62-year-old diabetic male with diabetic foot ulceration chronic in nature and MRI showing changes of the proximal phalanx bone and metatarsal bones 1 and 2 concerning for osteomyelitis as well as an abscess in the second interspace right foot. Patient had an elevated ESR and CRP as well as white blood cell count. He had also also been experiencing fevers. Nature of the above procedures, risks versus benefits potential complications consequences of surgery and his condition discussed at length. No guarantees were made as to the outcome and he understood that he would still have an infection which she would have to heal and that he is high risk for partial foot/limb loss. We also discussed that he could develop a flail toe and deformity and could require future surgery should he be able to keep the toes. All of his questions were answered and the informed consent was signed. Patient was taken from the preoperative holding area and operating room placed on operating room table in the supine position. An ankle tourniquet was applied. 1% lidocaine plain was injected in the patient's right foot. Following procedures then began. Incision and drainage right foot. Attention was directed dorsal aspect of the patient's right foot #15 blade used to make an incision over the second interspace. The incision was deepened with a hemostat and purulent drainage was noted to come from the site. A culture was taken of this purulent drainage and sent to microbiology. The purulent drainage was tracking down to the level of the bone. The site was irrigated with saline which contained vancomycin. Upon reinspection no further purulence could be expressed. The next procedure then began Debridement of left second metatarsal and proximal phalanx bone. Skin incision over the interspace was lengthened distally and medially full-thickness over the second metatarsophalangeal joint. The soft tissue was freed from the head of the metatarsal and the proximal phalanx. The sagittal saw was used to resect this bone and it was sent to microbiology and pathology. The site was irrigated with vancomycin mixed with saline. Attention was then directed medially. Debridement of left first metatarsal and proximal phalanx bone. An incision was made over the medial aspect of the first MTP joint through the ulceration excising the medial foot ulceration surrounding the hallux. Skin incision was made full-thickness down to the level of the bone. The soft tissue was reflected from the first metatarsophalangeal joint. A sagittal saw was used to resect the distal aspect of the metatarsal and the base of the proximal phalanx. This bone was sent to microbiology and pathology. A clear margin of the first metatarsal bone was also cut and sent to microbiology and pathology. This bone felt to be of better quality compared to the other bone resected which did contain some devitalized bone medially. There was no purulent drainage in this area. The remaining bone at the first metatarsal and proximal phalanx did appear to have bleeding bone. The sesamoid bones were identified and also removed and they were felt to be of soft quality as was the specimens of the first metatarsal and proximal phalanx. The flexor tendon which had a potential infectious process was also identified and followed along its course in the incision and the plantar foot. No purulence was expressed. The site was irrigated with vancomycin mixed with saline. The perfusion team had obtained the patient's blood and spun it into PRP. The PRP was applied to the patient's right foot wound. The medial incision with no purulent drainage or devitalized tissue present was deemed adequate for closure and 2-0 Prolene was used to reapproximate the skin. The second site where the abscess was present in the second interspace was packed open with iodoform packing and a few retention sutures were thrown using 2-0 Prolene. Postoperative bandaging included Adaptic, 4 x 4 gauze Kerlix and an Ramu wrap. Patient tolerated the anesthesia and the procedure well and had capillary refill time intact all digits of the right foot. Patient will return to floor where he will continue IV antibiotics.
[2018-05-07] MEDS ORDERED: Vancomycin 1,000 MG VIAL ONE (17:46)
[2018-05-07] MEDS ORDERED: Lidocaine 1% 20 ML MDV ONE (17:46)
[2018-05-07] MEDS ORDERED: D5% in Water 1,000 ML IVC PRN (19:07)
[2018-05-07] MEDS ORDERED: *HR* Dextrose 50 % in Water (Syg) 50 ML SYRINGE IVP PRN (19:07)
[2018-05-07] MEDS ORDERED: *HR* HYDROcodone/Acet 5/325 mg TABLET PO PRN (19:07)
[2018-05-07] MEDS ORDERED: Dextrose Gel 15 GM/37.5 ML TUBE PO PRN ×2 (19:07)
[2018-05-07] MEDS ORDERED: Naloxone 0.4 MG/ML INJ IVP PRN (19:07)
[2018-05-07] MEDS ORDERED: Gadolinium Contrast Agent (WT Based) IV PRN (19:07)
[2018-05-07] MEDS ORDERED: 0.9 % Sodium Chloride 250 ML ONE (21:59)
[2018-05-07] MEDS: *HR* OxyCODONE Immed Rel 5 MG TABLET PO PRN (22:34)
[2018-05-07] MEDS: Insulin DETEMIR 100 UNIT/ML X5UNITS SQ SCH (23:09)
[2018-05-08] MEDS: Piperacillin/Tazobactam 3.375 GM in 0.9 % Sodium Chloride Mini Bag 100 ML IVPB SCH ×4 (01:26→22:23)
[2018-05-08] MEDS: Acetaminophen 325 MG TABLET PO PRN ×3 (01:28→18:09)
[2018-05-08] MEDS: Insulin LISPRO 300 UNITS/3 ML VIAL SQ SCH ×4 (05:02→16:30)
[2018-05-08 06:05] LABS: Basophils % 0.3 %; Eosinophils # 0.2 K/mcL (0.0-0.6); Eosinophils % 1.7 %; Hematocrit 31.4 % (37.5-50.1); Hemoglobin 10.7 g/dL (12.9-16.9); Immature Granulocytes % 0.2 % (0-4); Lymphocytes # 1.6 K/mcL (0.6-4.6); Lymphocytes % 17.8 %; Mean Corpuscular HGB Conc 34.1 g/dL (31.6-35.5); Mean Corpuscular Volume 85.1 fL (83.0-100.0); Mean Platelet Volume 11.2 fL (9.4-12.4); Monocytes % 11.3 %; Neutrophils # 6.1 K/mcL (1.6-8.9); Platelet Count 258 K/mcL (140-400); Red Blood Count 3.69 M/mcL (4.19-5.50); Red Cell Distribution Width 12.4 % (11.5-14.5); Segmented Neutrophils % 68.7 %
[2018-05-08 06:30] LABS: BUN/Creatinine Ratio 18 (6-26); Blood Urea Nitrogen 23 mg/dL (8-23); Calcium 8.3 mg/dL (8.6-10.3); Carbon Dioxide 19 mEq/L (23-29); Chloride 112 mEq/L (98-107); Glucose 91 mg/dL (70-105); Osmolality,Calculated 289 (280-300); Potassium 3.9 mEq/L (3.5-5.1); Sodium 138 mEq/L (136-145); eGFR For Non-African Americans 59 (> 60)
[2018-05-08] MEDS: *HR* Heparin 5,000 UNIT/ML VIAL SQ SCH ×2 (08:32→16:30)
[2018-05-08] MEDS: 0.9 % Sodium Chloride 1,000 ML IVC SCH (08:33)
[2018-05-08] MEDS: Pregabalin 50 MG CAPSULE PO SCH ×3 (08:54→21:38)
--- NOTE | 2018-05-08 10:53 | Electrocardiograph Report ---
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
--- NOTE | 2018-05-08 12:12 | Internal Med Progress Note ---
Hospitalist Progress Note - Encounter Date of Encounter: 05/08/18 Time of Encounter: 09:00 - Subjective Interval History: Pt laying on bed. C/o foot pain. Still has low fever. Had I/D by podiatry. - Exam Vitals: Temp Pulse Resp BP Pulse Ox 99.0 F 77 18 150/77 92 05/08/18 11:38 05/08/18 11:38 05/08/18 11:38 05/08/18 11:38 05/08/18 11:38 Exam: General: Alert and oriented, in mild pain. HEENT:EOM, pupils equal, round and reactive. Cardiovascular:Normal S1 & S2, No JVD. Pulse regular. Lungs: clear to auscultation, no wheezes/rales Abdomen:Soft, non-tender, no rigidity. Extremities: S/P right foot I/D, well dressed. Neurological:Normal cognition and motor skills. Non-focal Skin:Normal color, no rash, no lesions. Pulses:Carotid and radial pulses normal +2. Rest of the physical exam is non contributory - Assessment and Plan (1) Hypertension Current Visit: No Status: Acute Assessment and Plan: Cont home med lisinopril as renal function improved. (2) DVT prophylaxis Current Visit: No Status: Acute Assessment and Plan: Subcutaneous heparin (3) Foot osteomyelitis, right Current Visit: Yes Status: Acute Assessment and Plan: Presented with poorly healing wound and surrounding cellulitis of the right foot , x-ray finding concerning for first metatarsal head osteomyelitis S/P I/D by podiatry, pending wound culture/biopasy. Cont iv vancomycin/Zosyn High ESR, CRP May need alf abx, will follow culture result and podiatry further recommendation. (4) Diabetes mellitus Current Visit: Yes Status: Acute Assessment and Plan: A1c was 9.3 in December but he states that his A1c has since improved 6.4. On metformin and Lantus 70 units at bedtime Hold off on metformin, resume Levemir 50 units at bedtime with low-dose line scale coverage ADA diet, Accu-Cheks before meals and at bedtime Glu is well controlled on current regime. (5) Acute on chronic kidney failure Current Visit: Yes Status: Acute Assessment and Plan: Cont IV fluid Renally adjusted antibiotics, avoid nephrotoxins Improved renal function. DVT Prophylaxis: Heparin SC - Time Spent with Patient Total time spent is greater than 50% in coordination of care (as documented) at patient's floor/unit and/or counseling patient: Greater than 35 minutes Plan of Care Discussed with: patient Internal Medicine: Result - Labs CBC & Chem 7: 05/08/18 05:15 05/08/18 05:15 Labs: Short CBC 05/08/18 Range/Units 05:15 WBC 8.9 (4.3-11.1) K/mcL Hgb 10.7 L (12.9-16.9) g/dL Hct 31.4 L (37.5-50.1) % Plt Count 258 (140-400) K/mcL Neutrophils # 6.1 (1.6-8.9) K/mcL BMP 05/08/18 05:15 Sodium 138 Potassium 3.9 Chloride 112 H Carbon Dioxide 19 L BUN 23 Creatinine 1.25 Glucose 91 Calcium 8.3 L - ABG Interpretation ABG results: PT/INR, D-dimer PT 13.5 Seconds (9.4-12.1) H 05/06/18 09:40 - Impressions Impressions Fluoroscopy 05/07/18 19:05 IMPRESSION: 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 D/ / Santhosh Gomez MD / Santhosh Gomez MD Interpreting Provider: Santhosh Gomez MD Consult Discharge Plan - Plan Referrals: Delio Jimenez DO [Primary Care Provider] - (1) Hypertension Qualifiers: Hypertension type: essential hypertension Qualified Code(s): I10 - Essential (primary) hypertension (3) Foot osteomyelitis, right Qualifiers: Osteomyelitis type: unspecified type Qualified Code(s): M86.9 - Osteomyelitis , unspecified (4) Diabetes mellitus Qualifiers: Diabetes mellitus type: type 2 Diabetes mellitus alf insulin use: with ferry terminal agent use Diabetes mellitus complication status: with unspecified complications Qualified Code(s): E11.8 - Type 2 diabetes mellitus with unspecified complications; Z79.4 - FPC (current) use of insulin (5) Acute on chronic kidney failure Qualifiers: Acute renal failure type: unspecified Chronic kidney disease stage: stage 3 ( moderate) Qualified Code(s): N17.9 - Acute kidney failure, unspecified; N18.3 - Chronic kidney disease, stage 3 (moderate)
--- NOTE | 2018-05-08 13:35 | Podiatry Progress Note ---
Date of Encounter: 05/08/18 Time of Encounter: 11:00 - Assessment and Plan (1) Chronic ulcer of right foot with fat layer exposed Current Visit: Yes Status: Acute Reviewed with patient his MRI and I reviewed the images. Discussed my findings and his treatment options. We discussed surgery versus IV antibiotics and a combination of both. He is going to proceed with surgical intervention including right foot incision and drainage and debridement of bone Nature of the procedure, risks versus benefits potential complications and consequences of surgery discussed at length including but not limited to persistent infection bleeding swelling numbness tingling nerve damage loss of partial foot/ leg heart attack blood clot need for further surgery. He understood that this could be a staged procedure and he could require multiple trips to the operating room and may still lose part of his foot or leg as he is high risk despite having surgery. He could also require reconstructive surgery in the future. All of his questions were answered and the informed consent was signed. NPO. to OR later today (2) Osteomyelitis Current Visit: Yes Status: Acute see above Qualifiers: Osteomyelitis type: other acute Osteomyelitis location: foot Laterality: right Qualified Code(s): M86.171 - Other acute osteomyelitis, right ankle and foot (3) Abscess of right foot Current Visit: Yes Status: Acute see above Subjective Interval history: S: 1 day s/p right foot I&D, debridement of 1st and 2nd met bone and phalanx bone. patient says pain controlled. O: erythema of the dorsal right foot has decreased. no purulence expressed. A: s/p I&D of abscess and debridement of bone right foot for osteomyelitis P: discussed surgical procedure and intra-operative findings. bandage to be changed if saturated. dressing change orders placed. get ID consult thursday. discussed current culture results, adjust abx accordingly. Objective - Vital Signs Vital Signs: Vital Signs Temp Pulse Resp BP Pulse Ox 05/08/18 11:38 99.0 F 77 18 150/77 92 05/08/18 07:08 99.9 F H 97 17 159/79 94 05/08/18 04:30 99.4 F 82 16 120/66 94 05/08/18 00:32 99.8 F H 96 16 139/77 94 05/07/18 19:05 98.9 F 77 16 153/83 96 05/07/18 17:03 83 18 164/87 94 05/07/18 16:48 100.3 F H 85 19 167/77 89 Intake and Output 05/07/18 05/08/18 05/08/18 23:59 07:59 15:59 Intake Total 0 / 0 480 / 480 Output Total 200 / 200 725 / 725 Balance -200 / -200 -245 / -245 Intake: IV Fluids 0 / 0 Vancocin 1,000 MG In 0.9 % 0 / 0 Sodium Chloride 250 ML @ 167 mls/hr IVPB Q12H [facility] Rx#: [id number] Oral 480 / 480 Output: Urine 200 / 200 725 / 725 Other: Meal NPO for lunch and dinner Breakfast Percent of Meal Consumed 70% Weight 103 kg Blood Glucose* 153 58 138 Patient Weight 05/08/18 23:59 Weight 103 kg - Lab Result Diagrams: 05/08/18 05:15 05/08/18 05:15 Labs: Abnormal lab results RBC 3.69 M/mcL (4.19-5.50) L 05/08/18 05:15 Hgb 10.7 g/dL (12.9-16.9) L 05/08/18 05:15 Hct 31.4 % (37.5-50.1) L 05/08/18 05:15 ESR 93 mm/hr (0-10) H 05/06/18 13:40 PT 13.5 Seconds (9.4-12.1) H 05/06/18 09:40 Chloride 112 mEq/L (98-107) H 05/08/18 05:15 Carbon Dioxide 19 mEq/L (23-29) L 05/08/18 05:15 Est GFR (Non-Af Amer) 59 (> 60) L 05/08/18 05:15 POC Glucose 154 mg/dL (70-99) H 05/08/18 08:05 Calcium 8.3 mg/dL (8.6-10.3) L 05/08/18 05:15 C-Reactive Protein 138 mg/L (Less than 10) H 05/06/18 13:40 Globulin 3.9 g/dL (2.4-3.5) H 05/06/18 09:40 Albumin/Globulin Ratio 0.9 (1.1-2.2) L 05/06/18 09:40 Urine Protein 30 mg/dL (Neg-Trace) H 05/06/18 11:28 Urine Microscopic RBC 5-15 per hpf (0-3) H 05/06/18 11:28 Ur Squamous Epith Cells Many per lpf (None-Few) H 05/06/18 11:28 Vancomycin Trough 12 mcg/mL (5-10) H 05/08/18 08:00 Microbiology, Last 48 Hours 05/07/18 17:00 Surgical Biopsy Culture - Preliminary Right Foot 05/07/18 17:00 Surgical Biopsy Culture - Preliminary Right Foot 05/07/18 17:00 Surgical Biopsy Culture - Preliminary Right Foot Consult Discharge Plan - Plan Referrals: Delio Jimenez DO [Primary Care Provider] -
[2018-05-08] MEDS ORDERED: 0.9 % Sodium Chloride 1,000 ML IVC SCH (19:30)
[2018-05-08] MEDS: Insulin DETEMIR 100 UNIT/ML X5UNITS SQ SCH (21:39)
[2018-05-08] MEDS: *HR* OxyCODONE Immed Rel 5 MG TABLET PO PRN (22:03)
[2018-05-09] MEDS: Insulin LISPRO 300 UNITS/3 ML VIAL SQ SCH ×4 (02:20→16:03)
[2018-05-09 07:14] LABS: Basophils % 0.3 %; Eosinophils # 0.2 K/mcL (0.0-0.6); Eosinophils % 1.6 %; Hematocrit 31.3 % (37.5-50.1); Hemoglobin 10.5 g/dL (12.9-16.9); Immature Granulocytes % 0.4 % (0-4); Immature Platelets 3.1 % (1.1-6.1); Lymphocytes # 1.8 K/mcL (0.6-4.6); Lymphocytes % 16.8 %; Mean Corpuscular HGB Conc 33.5 g/dL (31.6-35.5); Mean Corpuscular Hemoglobin 28.8 pg (28.0-33.3); Mean Platelet Volume 10.6 fL (9.4-12.4); Monocytes # 1.2 K/mcL (0.0-1.3); Neutrophils # 7.7 K/mcL (1.6-8.9); Platelet Count 272 K/mcL (140-400); Red Blood Count 3.64 M/mcL (4.19-5.50); Red Cell Distribution Width 12.4 % (11.5-14.5); Segmented Neutrophils % 69.9 %
[2018-05-09 07:42] LABS: BUN/Creatinine Ratio 15 (6-26); Blood Urea Nitrogen 18 mg/dL (8-23); Calcium 8.4 mg/dL (8.6-10.3); Carbon Dioxide 21 mEq/L (23-29); Chloride 111 mEq/L (98-107); Glucose 48 mg/dL (70-105); Osmolality,Calculated 287 (280-300); Potassium 3.7 mEq/L (3.5-5.1); Sodium 139 mEq/L (136-145); eGFR For Non-African Americans > 60 (> 60)
[2018-05-09] MEDS: Pregabalin 50 MG CAPSULE PO SCH ×3 (08:07→21:45)
[2018-05-09] MEDS: *HR* Heparin 5,000 UNIT/ML VIAL SQ SCH ×2 (08:07→16:30)
[2018-05-09] MEDS: Piperacillin/Tazobactam 3.375 GM in 0.9 % Sodium Chloride Mini Bag 100 ML IVPB SCH ×2 (08:08→15:08)
[2018-05-09] MEDS: Lactobacillus 1 EACH CAP.SPRINK PO SCH (08:08)
--- NOTE | 2018-05-09 11:03 | Internal Med Progress Note ---
Hospitalist Progress Note - Encounter Date of Encounter: 05/09/18 Time of Encounter: 09:00 - Subjective Interval History: Pt laying on bed. C/o foot pain which is controlled by pain meds. Still has fever overnight. - Exam Vitals: Temp Pulse Resp BP Pulse Ox 98.1 F 84 16 163/82 90 05/09/18 07:23 05/09/18 07:23 05/09/18 07:23 05/09/18 07:23 05/09/18 07:23 Exam: General: Alert and oriented, in mild pain. HEENT:EOM, pupils equal, round and reactive. Cardiovascular:Normal S1 & S2, No JVD. Pulse regular. Lungs: clear to auscultation, no wheezes/rales Abdomen:Soft, non-tender, no rigidity. Extremities: S/P right foot I/D, well dressed. Neurological:Normal cognition and motor skills. Non-focal Skin:Normal color, no rash, no lesions. Pulses:Carotid and radial pulses normal +2. Rest of the physical exam is non contributory - Assessment and Plan (1) Hypertension Current Visit: No Status: Acute Assessment and Plan: Cont home med lisinopril as renal function improved. Increase dose for better BP control. (2) DVT prophylaxis Current Visit: No Status: Acute Assessment and Plan: Subcutaneous heparin (3) Foot osteomyelitis, right Current Visit: Yes Status: Acute Assessment and Plan: Presented with poorly healing wound and surrounding cellulitis of the right foot , x-ray finding concerning for first metatarsal head osteomyelitis S/P I/D by podiatry, pending wound culture/biopasy. Preliminary result shows gram positive cocci. Cont iv vancomycin/Zosyn High ESR, CRP May need long term acute care registered nurse abx, will follow culture result and podiatry further recommendation. (4) Diabetes mellitus Current Visit: Yes Status: Acute Assessment and Plan: A1c was 9.3 in December but he states that his A1c has since improved 6.4. On metformin and Lantus 70 units at bedtime Hold off on metformin, resume Levemir 60 units at bedtime with low-dose line scale coverage ADA diet, Accu-Cheks before meals and at bedtime (5) Acute on chronic kidney failure Current Visit: Yes Status: Acute Assessment and Plan: Cont IV fluid Renally adjusted antibiotics, avoid nephrotoxins Improved renal function. DVT Prophylaxis: Heparin SC - Time Spent with Patient Total time spent is greater than 50% in coordination of care (as documented) at patient's floor/unit and/or counseling patient: 40 min Greater than 35 minutes Plan of Care Discussed with: patient Internal Medicine: Result - Labs CBC & Chem 7: 05/09/18 06:20 05/09/18 06:20 Labs: Short CBC 05/09/18 Range/Units 06:20 WBC 11.0 (4.3-11.1) K/mcL Hgb 10.5 L (12.9-16.9) g/dL Hct 31.3 L (37.5-50.1) % Plt Count 272 (140-400) K/mcL Neutrophils # 7.7 (1.6-8.9) K/mcL BMP 05/09/18 06:20 Sodium 139 Potassium 3.7 Chloride 111 H Carbon Dioxide 21 L BUN 18 Creatinine 1.17 Glucose 48 L Calcium 8.4 L - ABG Interpretation ABG results: PT/INR, D-dimer PT 13.5 Seconds (9.4-12.1) H 05/06/18 09:40 Consult Discharge Plan - Plan Referrals: Delio Jimenez DO [Primary Care Provider] - (1) Hypertension Qualifiers: Hypertension type: essential hypertension Qualified Code(s): I10 - Essential (primary) hypertension (3) Foot osteomyelitis, right Qualifiers: Osteomyelitis type: unspecified type Qualified Code(s): M86.9 - Osteomyelitis , unspecified (4) Diabetes mellitus Qualifiers: Diabetes mellitus type: type 2 Diabetes mellitus detention insulin use: with long term acute care registered nurse use Diabetes mellitus complication status: with unspecified complications Qualified Code(s): E11.8 - Type 2 diabetes mellitus with unspecified complications; Z79.4 - detention (current) use of insulin (5) Acute on chronic kidney failure Qualifiers: Acute renal failure type: unspecified Chronic kidney disease stage: stage 3 ( moderate) Qualified Code(s): N17.9 - Acute kidney failure, unspecified; N18.3 - Chronic kidney disease, stage 3 (moderate)
[2018-05-09] MEDS: Acetaminophen 325 MG TABLET PO PRN ×2 (12:11→21:48)
[2018-05-09] MEDS ORDERED: Insulin DETEMIR 100 UNIT/ML X5UNITS SQ SCH (21:00)
[2018-05-10] MEDS: Insulin DETEMIR 100 UNIT/ML X5UNITS SQ SCH ×2 (01:22→21:20)
[2018-05-10] MEDS: Piperacillin/Tazobactam 3.375 GM in 0.9 % Sodium Chloride Mini Bag 100 ML IVPB SCH ×3 (01:23→16:04)
[2018-05-10 04:49] LABS: Basophils % 0.4 %; Eosinophils # 0.7 K/mcL (0.0-0.6); Hematocrit 29.7 % (37.5-50.1); Immature Granulocytes % 0.5 % (0-4); Lymphocytes # 1.9 K/mcL (0.6-4.6); Lymphocytes % 19.3 %; Mean Corpuscular HGB Conc 33.7 g/dL (31.6-35.5); Mean Corpuscular Hemoglobin 28.7 pg (28.0-33.3); Mean Corpuscular Volume 85.3 fL (83.0-100.0); Monocytes % 9.7 %; Neutrophils # 6.2 K/mcL (1.6-8.9); Platelet Count 309 K/mcL (140-400); Red Blood Count 3.48 M/mcL (4.19-5.50); Red Cell Distribution Width 12.4 % (11.5-14.5); Segmented Neutrophils % 63.1 %
[2018-05-10 05:07] LABS: BUN/Creatinine Ratio 16 (6-26); Blood Urea Nitrogen 17 mg/dL (8-23); Calcium 8.1 mg/dL (8.6-10.3); Carbon Dioxide 22 mEq/L (23-29); Chloride 110 mEq/L (98-107); Glucose 162 mg/dL (70-105); Osmolality,Calculated 289 (280-300); Potassium 3.9 mEq/L (3.5-5.1); Sodium 137 mEq/L (136-145); eGFR For Non-African Americans > 60 (> 60)
[2018-05-10] MEDS ORDERED: *HR* Heparin 5,000 UNIT/ML VIAL ONE (05:11)
[2018-05-10] MEDS: Acetaminophen 325 MG TABLET PO PRN ×2 (06:05→16:03)
[2018-05-10] MEDS: Insulin LISPRO 300 UNITS/3 ML VIAL SQ SCH ×5 (07:20→22:09)
[2018-05-10] MEDS: Lactobacillus 1 EACH CAP.SPRINK PO SCH (07:29)
[2018-05-10] MEDS: Pregabalin 50 MG CAPSULE PO SCH ×3 (07:29→21:20)
--- NOTE | 2018-05-10 10:41 | Podiatry Progress Note ---
Date of Encounter: 05/10/18 Time of Encounter: 06:00 - Assessment and Plan (1) Chronic ulcer of right foot with fat layer exposed Current Visit: Yes Status: Acute Reviewed with patient his MRI and I reviewed the images. Discussed my findings and his treatment options. We discussed surgery versus IV antibiotics and a combination of both. He is going to proceed with surgical intervention including right foot incision and drainage and debridement of bone Nature of the procedure, risks versus benefits potential complications and consequences of surgery discussed at length including but not limited to persistent infection bleeding swelling numbness tingling nerve damage loss of partial foot/ leg heart attack blood clot need for further surgery. He understood that this could be a staged procedure and he could require multiple trips to the operating room and may still lose part of his foot or leg as he is high risk despite having surgery. He could also require reconstructive surgery in the future. All of his questions were answered and the informed consent was signed. NPO. to OR later today (2) Osteomyelitis Current Visit: Yes Status: Acute see above Qualifiers: Osteomyelitis type: other acute Osteomyelitis location: foot Laterality: right Qualified Code(s): M86.171 - Other acute osteomyelitis, right ankle and foot (3) Abscess of right foot Current Visit: Yes Status: Acute see above Subjective Interval history: S: s/p right foot I&D, debridement of 1st and 2nd met bone and phalanx bone. patient says pain controlled. O: erythema of the dorsal right foot continues to decrease. no purulence expressed. wound plantar medial foot. A: s/p I&D of abscess and debridement of bone right foot for osteomyelitis P: discussed culture results. bandage to be changed if saturated. dressing change orders placed. get ID consult thursday. discussed current culture results, adjust abx accordingly. get ID consult. Objective - Vital Signs Vital Signs: Vital Signs Temp Pulse Resp BP Pulse Ox 05/10/18 07:07 98.7 F 77 16 154/78 92 05/10/18 04:57 99.9 F H 75 15 153/76 92 05/10/18 00:40 98.7 F 79 16 152/77 92 05/09/18 20:39 99.2 F 80 15 150/80 92 05/09/18 16:00 98.2 F 73 18 122/70 93 05/09/18 11:51 99.1 F 77 17 148/74 88 Intake and Output 05/09/18 05/10/18 05/10/18 23:59 07:59 15:59 Intake Total 350 / 350 100 / 100 360 / 360 Balance 350 / 350 100 / 100 360 / 360 Intake: IV Fluids 350 / 350 100 / 100 Zosyn 3.375 GM In 0.9 % Sodium 100 / 100 100 / 100 Chloride (Mini-Bag +) 100 ML @ 25 mls/hr IVPB Q8HR [facility] Rx#: [id number] Vancocin 1,250 MG In 0.9 % 250 / 250 Sodium Chloride 250 ML @ 166.67 mls/hr IVPB Q12H [facility] Rx#: [id number] Oral 360 / 360 Other: Meal Breakfast Percent of Meal Consumed 95% Weight 102.512 kg Blood Glucose* 158 139 Patient Weight 05/10/18 23:59 Weight 102.512 kg - Lab Result Diagrams: 05/10/18 04:32 05/10/18 04:32 Labs: Abnormal lab results RBC 3.48 M/mcL (4.19-5.50) L 05/10/18 04:32 Hgb 10.0 g/dL (12.9-16.9) L 05/10/18 04:32 Hct 29.7 % (37.5-50.1) L 05/10/18 04:32 Eosinophils # 0.7 K/mcL (0.0-0.6) H 05/10/18 04:32 ESR 93 mm/hr (0-10) H 05/06/18 13:40 PT 13.5 Seconds (9.4-12.1) H 05/06/18 09:40 Chloride 110 mEq/L (98-107) H 05/10/18 04:32 Carbon Dioxide 22 mEq/L (23-29) L 05/10/18 04:32 Glucose 162 mg/dL (70-105) H 05/10/18 04:32 POC Glucose 384 mg/dL (70-99) H 05/10/18 01:21 Calcium 8.1 mg/dL (8.6-10.3) L 05/10/18 04:32 C-Reactive Protein 138 mg/L (Less than 10) H 05/06/18 13:40 Globulin 3.9 g/dL (2.4-3.5) H 05/06/18 09:40 Albumin/Globulin Ratio 0.9 (1.1-2.2) L 05/06/18 09:40 Urine Protein 30 mg/dL (Neg-Trace) H 05/06/18 11:28 Urine Microscopic RBC 5-15 per hpf (0-3) H 05/06/18 11:28 Ur Squamous Epith Cells Many per lpf (None-Few) H 05/06/18 11:28 Vancomycin Trough 17 mcg/mL (5-10) H 05/10/18 08:11 Microbiology, Last 48 Hours 05/07/18 17:00 Surgical Biopsy Culture - Final Right Foot Staphylococcus aureus 05/07/18 20:30 Wound Culture - Final Right Foot Staphylococcus aureus 05/07/18 17:00 Surgical Biopsy Culture - Preliminary Right Foot Gram Positive Cocci 05/07/18 17:00 Surgical Biopsy Culture - Preliminary Right Foot Gram Positive Cocci Consult Discharge Plan - Plan Referrals: Delio Jimenez DO [Primary Care Provider] -
[2018-05-10] MEDS ORDERED: Aminoglycoside Consult 1 EACH MC ONE (11:54)
--- NOTE | 2018-05-10 12:53 | Internal Med Progress Note ---
Hospitalist Progress Note - Encounter Date of Encounter: 05/10/18 Time of Encounter: 09:00 - Subjective Interval History: Pt feels fine, s/p surgery,minimal pain. Still has low fever in this morning. Denies SOB/nausea/diarrhea.. - Exam Vitals: Temp Pulse Resp BP Pulse Ox 98.2 F 80 17 155/78 90 05/10/18 11:10 05/10/18 11:10 05/10/18 11:10 05/10/18 11:10 05/10/18 11:10 Exam: General: Alert and oriented, in mild pain. HEENT:EOM, pupils equal, round and reactive. Cardiovascular:Normal S1 & S2, No JVD. Pulse regular. Lungs: clear to auscultation, no wheezes/rales Abdomen:Soft, non-tender, no rigidity. Extremities: S/P right foot I/D, well dressed. Neurological:Normal cognition and motor skills. Non-focal Skin:Normal color, no rash, no lesions. Pulses:Carotid and radial pulses normal +2. Rest of the physical exam is non contributory - Assessment and Plan (1) Hypertension Current Visit: No Status: Acute Assessment and Plan: Cont home med lisinopril as renal function improved. Increase dose for better BP control. (2) DVT prophylaxis Current Visit: No Status: Acute Assessment and Plan: Subcutaneous heparin (3) Foot osteomyelitis, right Current Visit: Yes Status: Acute Assessment and Plan: Presented with poorly healing wound and surrounding cellulitis of the right foot , x-ray finding concerning for first metatarsal head osteomyelitis S/P I/D by podiatry, pending wound culture/biopasy. Preliminary result shows gram positive cocci. Cont iv vancomycin/Zosyn High ESR, CRP ID consulted May need engine head repairer abx, will follow culture result and podiatry/ID further recommendation. (4) Diabetes mellitus Current Visit: Yes Status: Acute Assessment and Plan: A1c was 9.3 in December but he states that his A1c has since improved 6.4. On metformin and Lantus 70 units at bedtime Hold off on metformin, resume Levemir 20 units at bedtime with low-dose line scale coverage. (Pt has one time hypoglycemia, levemir dose decreased) ADA diet, Accu-Cheks before meals and at bedtime (5) Acute on chronic kidney failure Current Visit: Yes Status: Acute Assessment and Plan: Dosing antibiotics per renal function, avoid nephrotoxins Improved renal function. DVT Prophylaxis: Heparin SC - Time Spent with Patient Total time spent is greater than 50% in coordination of care (as documented) at patient's floor/unit and/or counseling patient: 40 min Greater than 35 minutes Internal Medicine: Result - Labs CBC & Chem 7: 05/10/18 04:32 05/10/18 04:32 Labs: Short CBC 05/10/18 Range/Units 04:32 WBC 9.8 (4.3-11.1) K/mcL Hgb 10.0 L (12.9-16.9) g/dL Hct 29.7 L (37.5-50.1) % Plt Count 309 (140-400) K/mcL Neutrophils # 6.2 (1.6-8.9) K/mcL BMP 05/10/18 04:32 Sodium 137 Potassium 3.9 Chloride 110 H Carbon Dioxide 22 L BUN 17 Creatinine 1.05 Glucose 162 H Calcium 8.1 L - ABG Interpretation ABG results: PT/INR, D-dimer PT 13.5 Seconds (9.4-12.1) H 05/06/18 09:40 Consult Discharge Plan - Plan Referrals: Delio Jimenez DO [Primary Care Provider] - (1) Hypertension Qualifiers: Hypertension type: essential hypertension Qualified Code(s): I10 - Essential (primary) hypertension (3) Foot osteomyelitis, right Qualifiers: Osteomyelitis type: unspecified type Qualified Code(s): M86.9 - Osteomyelitis , unspecified (4) Diabetes mellitus Qualifiers: Diabetes mellitus type: type 2 Diabetes mellitus fdc insulin use: with fdc use Diabetes mellitus complication status: with unspecified complications Qualified Code(s): E11.8 - Type 2 diabetes mellitus with unspecified complications; Z79.4 - grave digger (current) use of insulin (5) Acute on chronic kidney failure Qualifiers: Acute renal failure type: unspecified Chronic kidney disease stage: stage 3 ( moderate) Qualified Code(s): N17.9 - Acute kidney failure, unspecified; N18.3 - Chronic kidney disease, stage 3 (moderate)
--- NOTE | 2018-05-10 15:35 | Infectious Disease Consult ---
Date of Encounter: 05/10/18 Time of Encounter: 15:31 Assessment and Plan (1) Sepsis Status: Resolved Assessment and plan: The patient developed 2 SIRS criteria and had hypotension on admission. Likely secondary to right foot osteomyelitis. Improved. Afebrile x 48 hours. Tachycardia has resolved. Blood cultures drawn 05/06/18 are NGTD x 2 sets. Qualifiers: Sepsis type: methicillin susceptible Staphylococcus aureus Qualified Code(s ): A41.01 - Sepsis due to Methicillin susceptible Staphylococcus aureus (2) Foot osteomyelitis, right Status: Acute Assessment and plan: Location: Rgiht foot 1st metatarsal head and proximal phalanx, right foot 2nd metatarsal head and proximal phalanx, medial and lateral sesamoids. Causative organism: MSSA. Likely secondary to non-healing chronic foot ulcer. Failed outpatient oral antibiotics. Right foot XR showed findings consistent with osteomyelitis and 1st metatarsal head and proximal phalanx. MRI of the foot showed osteomyelitis of the 1st metatarsal head and proximal phalanx and reactive osteitis vs. early osteomyelitis of the distal phalanx with osteomyelitis of the 2nd metatarsal head and proximal phalanx with osteomyelitis of the medial and lateral hallux sesamoids. There was also an abscess to the 2nd interspace. Podiatry consulted. Status post I & D right foot with debridement of bone of the right foot. Intra-op cultures positive for MSSA, including bone to assess for clear margins on the 1st metatarsal and abscess. Continue wound care and activity restrictions per the Podiatry team. Discontinue Vanc and Zosyn. Start Ancef 2 grams IV Q8H. Duration of treatment depends on the clinical picture, but likely a total of 6- 8 weeks post-op. I have given the patient the option of Nafcillin 24 hour continuous IV infusion or cefazolin Q8H. He is going to discuss with his and let us know. Monitor renal function and dose-adjust antibiotics. client services associate to assist with discharge planning. Consult VAT for midline placement prior to discharge. Will need weekly CBC, BUN/Cr, ESR and CRP. Will need weekly IV care per protocol. Follow up with ID 05/26/18 at 0900. Qualifiers: Osteomyelitis type: unspecified type Qualified Code(s): M86.9 - Osteomyelitis, unspecified (3) Abscess of right foot Status: Acute Assessment and plan: Location: Right foot 2nd interspace. Causative organism: MSSA. Etiology: Likely secondary to right non-healing foot ulcer. Podiatry consulted. Status post I & D. Antibiotics as above. (4) Acute on chronic kidney failure Status: Acute Assessment and plan: Likely secondary to sepsis. Resolved. Qualifiers: Acute renal failure type: unspecified Chronic kidney disease stage: stage 3 (moderate) Qualified Code(s): N17.9 - Acute kidney failure, unspecified; N18.3 - Chronic kidney disease, stage 3 (moderate) (5) Diabetic foot ulcer Status: Acute Assessment and plan: Previous history of stepping on a nail in July. Has had a non-healing ulcer since then. Follows in the wound clinic. Infection in December 2017 with I & D x2. Grew S. constellatus and B. fragilis at that time. Treated with IV antibiotics inpatient and transitioned to PO Levaquin and Augmentin on discharge. Podiatry consulted. Wound care and dressing changes per the Podiatry team. Qualifiers: Diabetic foot ulcer location: midfoot Diabetes mellitus type: type 2 Laterality: right Non-pressure ulcer stage: with fat layer exposed Qualified Code(s): E11.621 - Type 2 diabetes mellitus with foot ulcer; L97.412 - Non-pressure chronic ulcer of right heel and midfoot with fat layer exposed (6) Diabetes mellitus Status: Acute Assessment and plan: Uncontrolled. HgbA1C 9.3% in December. Recommend re-checking HgbA1C. Recommend aggressive glucose monitoring and control to promote wound healing and prevent re-infection. Management per the primary team. Qualifiers: Diabetes mellitus type: type 2 Diabetes mellitus fci insulin use: with mess cook use Diabetes mellitus complication status: with unspecified complications Qualified Code(s): E11.8 - Type 2 diabetes mellitus with unspecified complications; Z79.4 - MCFP (current) use of insulin (7) Hypertension Status: Acute Qualifiers: Hypertension type: essential hypertension Qualified Code(s): I10 - Essential (primary) hypertension (8) CKD stage 3 due to type 2 diabetes mellitus Status: Chronic (9) Obesity (BMI 30.0-34.9) Status: Chronic (10) HLD (hyperlipidemia) Status: Acute Qualifiers: Hyperlipidemia type: unspecified Qualified Code(s): E78.5 - Hyperlipidemia , unspecified Infectious Disease HPI - Data of Consult Patient: known to practice within the last 3 years Consult date: 05/10/18 Requesting Physician: Lois Santos MD Primary Care Provider: Delio Jimenez, DO - Consult Narrative Reason for consult: Right foot infection History of present illness: Mr. Pablo is a 62 year old male with past medical history of diabetes, hyperlipidemia, hypertension, and chronic right foot ulcer status post stepping on a nail in August. The patient was much the hospital May 06 for right lower extremity infection and acute kidney injury. We are consulted on May 10 for antibiotic recommendations for right foot osteomyelitis. Briefly, the patient is a 62-year-old male, known to the ID services were consulted on his case back in December. At that time, the patient had a right foot infection that required an I&D of the right foot on January 12 with a repeat I&D on January 16. Intraoperative cultures were positive for strep constellation S and Bacteroides fragilis. He was discharged on oral Augmentin and Levaquin with plans to follow-up with podiatry. Since then, the patient has been following with the wound clinic. He had been placed on oral Levaquin 2 days prior to admission. He was evaluated in the wound clinic on the day of admission and advised to come to the emergency department due to increased redness and concern for infection. Upon arrival, the patient was afebrile, but was noted to be hypotensive with a blood pressure 86/54. Laboratory studies revealed a normal white blood cell count with an acute kidney injury. Chest x- ray was negative. He had a right foot x-ray that showed findings consistent with osteo-myelitis of the first metatarsal head. Blood cultures were obtained 2 sets. A swab culture of the wound was obtained. He was started on Vanco and Zosyn and admitted to the hospital for further evaluation. After admission, the patient became febrile and tachycardic with a MAXIMUM TEMPERATURE of 102.3. He had a right foot MRI that showed findings consistent with osteomyelitis of the first metatarsal head and proximal phalanx as well as early osteomyelitis versus reactive osteitis of the distal phalanx, osteo- myelitis of the second metatarsal head and second proximal phalanx, abscess in the second interdigital space, and osteomyelitis of the medial/lateral hallux sesamoids. Podiatry was consulted and evaluated the patient and took him to the operating room on May 07 and performed an I&D of the right foot with debridement of the bone of the right foot. Multiple specimens were sent to pathology. Intraoperative cultures were positive for MSSA. Postop, the patient did spike a temp with a MAXIMUM TEMPERATURE of 102, but has been afebrile for 48 hours now. His acute kidney injury has resolved. Currently, the patient is on Vanco and Zosyn. We have been asked to evaluate and make further recommendations. CC: Lois Santos MD Past Med Surg Social Fam HX - Past Medical History Attestation: Yes The following information was validated with the patient. Source: patient, old records reviewed, nursing notes reviewed Medical history: diabetes, hyperlipidemia, hypertension, kidney stones Psychiatric history: no psych history - Past Surgical History Surgical History: orthopedic, other - Social History Smoking Status: Never smoker Alcohol use: none Drug use: none Occupational status: retired Current living situation: Home, With Family Activity Level: Independent ambulation Recent Out of Country Travel Within the Last 8 Weeks: No Exposure or Possible Exposure to Illness During Travel: No - Family History Father Living Status: Hx Family Cardiac Disorders: Yes (HTN) Hx Family Respiratory Disorders: No Hx Family Cancer: Yes Hx Family GI Disorders: No Hx Family Endocrine Disorder: No Hx Family Neuromuscular Disorders: No Hx Family Neurologic Disorders: No Hx Family HEENT Disorders: No Hx Family Autoimmune Disorders: No Mother Living Status: Hx Family Cardiac Disorders: No Hx Family Respiratory Disorders: No Hx Family Cancer: Yes (Breast) Hx Family Endocrine Disorder: Yes (DM) Infectious Disease-CN:Meds Gemfibrozil [Lopid] 600 mg PO BID 01/12/18 [History] Insulin Glargine [Lantus] 70 unit SQ HS 01/12/18 [History] Pregabalin [Lyrica] 200 mg PO TID 01/12/18 [History] Acetaminophen [Tylenol] 1,000 mg PO Q6HR PRN 05/06/18 [History] Cetirizine HCl [Zyrtec] 10 mg PO DAILY 05/06/18 [History] Lisinopril [Zestril] 10 mg PO DAILY 05/06/18 [History] Metformin HCl [Metformin HCl] 1,000 mg PO BID 05/06/18 [History] Potassium 99 mg PO DAILY 05/06/18 [History] 3 Allergy/AdvReac Type Severity Reaction Status Date / Time loratadine [From Claritin-D] Allergy Hives Verified 05/06/18 10:50 pseudoephedrine Allergy Hives Verified 05/06/18 10:50 [From Claritin-D] All systems: reviewed and no additional remarkable complaints except as stated Exam - Constitutional Vitals: Temp Pulse Resp BP Pulse Ox 98.2 F 80 17 155/78 90 05/10/18 11:10 05/10/18 11:10 05/10/18 11:10 05/10/18 11:10 05/10/18 11:10 General appearance: cooperative, no acute distress, obese - Head Head exam: Present: atraumatic, normal inspection, normocephalic - Eye Eye exam: Present: EOMI, normal appearance, PERRL Pupils: Present: normal accommodation - ENT ENT exam: Present: mucous membranes moist - Neck Neck exam: Present: normal inspection - Respiratory Respiratory exam: Present: CTAB. Absent: rales, respiratory distress, rhonchi, wheezes - Cardiovascular Cardiovascular exam: Present: RRR, +S1, +S2 - GI/Abdominal GI/Abdominal exam: Present: distended (obese), normal bowel sounds, soft. Absent: tenderness - Extremities Exam Extremities exam: Absent: normal inspection (Right foot dressing with CAM boot noted.) - Neurological Exam Neurological exam: Present: alert, oriented X3, no focal deficits - Psychiatric Psychiatric exam: Present: normal affect, normal mood - Skin Skin exam: Present: dry, intact, normal color, warm Infectious Disease CN: Results - Labs CBC & Chem 7: 05/10/18 04:32 05/10/18 04:32 Cultures: Cultures 05/07/18 17:00 Surgical Biopsy Culture - Final Right Foot Staphylococcus aureus 05/07/18 17:00 Surgical Biopsy Culture - Final Right Foot Staphylococcus aureus 05/07/18 17:00 Surgical Biopsy Culture - Final Right Foot Staphylococcus aureus 05/07/18 20:30 Wound Culture - Final Right Foot Staphylococcus aureus Consult Discharge Plan - Plan Referrals: Delio Jimenez, [Primary Care Provider] - Gypsy Guevara, CRIBBER [Advanced Practice Nurse] - 05/26/18 9:00 am - Attending Attestation I examined this patient and my medical decision-making was reviewed with the Resident Physician. I agree with the documented findings, disposition and treatment plan as described except to the extent set forth below. This is an addendum to original report dictated by Gypsy Guevara CNP. Please refer to Gypsy's note for full detail. Patient is 62-year-old gentleman who presented to [facility] with osteomyelitis of the first metatarsal head and proximal phalanx, right foot second metatarsal head and proximal phalanx, medial and lateral sesamoids with MSSA. Patient failed outpatient oral antibiotic. Patient had a right foot x-ray which showed consistence with osteomyelitis. MRI of the foot showed osteolysis of the first metatarsal head and proximal phalanx and reactive osteitis. Patient was taken to surgery on 05/07/2018 where he had incision and drainage of the right foot, debridement of the bone right foot (right first metatarsal and proximal phalanx , second metatarsal and proximal phalanx) Intra-Op cultures grew MSSA we were asked to evaluate the patient's make further recommendations. At this point patient is a on vancomycin and Zosyn. Recommend stopping vancomycin and Zosyn and starting the patient on Ancef 2 g IV every 8 hours. Duration of treatment likely 68 weeks. We will need to check weekly CBC, BMP, ESR and CRP Follow-up with us in clinic in 2 weeks.
[2018-05-10] MEDS: *HR* OxyCODONE Immed Rel 5 MG TABLET PO PRN (16:11)
[2018-05-10] MEDS: *HR* Heparin 5,000 UNIT/ML VIAL SQ SCH ×2 (16:11→22:09)
[2018-05-11 05:04] LABS: Basophils # 0.1 K/mcL (0.0-0.2); Basophils % 0.6 %; Eosinophils # 0.7 K/mcL (0.0-0.6); Eosinophils % 9.2 %; Hematocrit 27.7 % (37.5-50.1); Hemoglobin 9.5 g/dL (12.9-16.9); Immature Granulocytes % 0.4 % (0-4); Lymphocytes # 2.1 K/mcL (0.6-4.6); Lymphocytes % 26.8 %; Mean Corpuscular HGB Conc 34.3 g/dL (31.6-35.5); Mean Corpuscular Volume 84.5 fL (83.0-100.0); Mean Platelet Volume 9.9 fL (9.4-12.4); Monocytes # 0.7 K/mcL (0.0-1.3); Monocytes % 9.3 %; Neutrophils # 4.3 K/mcL (1.6-8.9); Platelet Count 399 K/mcL (140-400); Red Blood Count 3.28 M/mcL (4.19-5.50); Red Cell Distribution Width 12.3 % (11.5-14.5); Segmented Neutrophils % 53.7 %
[2018-05-11 05:24] LABS: BUN/Creatinine Ratio 17 (6-26); Blood Urea Nitrogen 17 mg/dL (8-23); Calcium 8.2 mg/dL (8.6-10.3); Carbon Dioxide 22 mEq/L (23-29); Chloride 109 mEq/L (98-107); Glucose 96 mg/dL (70-105); Osmolality,Calculated 287 (280-300); Potassium 3.6 mEq/L (3.5-5.1); Sodium 138 mEq/L (136-145); eGFR For Non-African Americans > 60 (> 60)
[2018-05-11 06:04] LABS: Estimated Average Glucose 143 mg/dl; Hemoglobin A1C 6.6 %
[2018-05-11] MEDS: *HR* Heparin 5,000 UNIT/ML VIAL SQ SCH (06:29)
[2018-05-11] MEDS: Insulin LISPRO 300 UNITS/3 ML VIAL SQ SCH ×2 (09:37→13:29)
[2018-05-11] MEDS: Pregabalin 50 MG CAPSULE PO SCH (09:38)
[2018-05-11] MEDS: Lactobacillus 1 EACH CAP.SPRINK PO SCH (09:38)
--- NOTE | 2018-05-11 10:26 | Podiatry Progress Note ---
Date of Encounter: 05/11/18 Time of Encounter: 10:23 - Assessment and Plan (1) Chronic ulcer of right foot with fat layer exposed Current Visit: Yes Status: Acute Continue to wear diabetic boot. Patient ok to D/C home from podiatry standpoint. Home dressing changes should include alginate, 4x4, and kerlex. Follow up in wound care clinic with Dr. Yanez on . (2) Foot osteomyelitis, right Current Visit: Yes Status: Acute Improving. See above note. Qualifiers: Osteomyelitis type: unspecified type Qualified Code(s): M86.9 - Osteomyelitis, unspecified Subjective Principal diagnosis: Osteomylitis, right foot Interval history: Patient sitting up in chair. Denies any numbness, tingling, or pain. Denies any fevers. Objective - Vital Signs Vital Signs: Vital Signs Temp Pulse Resp BP Pulse Ox 05/11/18 07:14 98.1 F 75 18 150/73 92 05/11/18 03:27 99.1 F 76 17 143/75 90 05/11/18 01:25 98.4 F 74 18 132/77 91 05/10/18 20:53 98.4 F 79 17 146/77 91 05/10/18 16:00 98.8 F 82 18 177/82 90 05/10/18 11:10 98.2 F 80 17 155/78 90 Intake and Output 05/10/18 05/11/18 05/11/18 23:59 07:59 15:59 Intake Total 100 / 100 360 / 360 Output Total 300 / 300 Balance -200 / -200 360 / 360 Intake: IV Fluids 100 / 100 Ancef 2,000 MG In 0.9 % Sodium 100 / 100 Chloride 100 ML @ 200 mls/hr IVPB Q8HR [facility] Rx#:[id number] Oral 360 / 360 Output: Urine 300 / 300 Other: Meal Breakfast Percent of Meal Consumed 100% Weight 102.512 kg Blood Glucose* 191 87 Patient Weight 05/11/18 23:59 Weight 102.512 kg - Exam Incision: Present: clean and dry Capillary Refill: less than 3 seconds - Lab Result Diagrams: 05/11/18 04:48 05/11/18 04:48 Labs: Abnormal lab results RBC 3.28 M/mcL (4.19-5.50) L 05/11/18 04:48 Hgb 9.5 g/dL (12.9-16.9) L 05/11/18 04:48 Hct 27.7 % (37.5-50.1) L 05/11/18 04:48 Eosinophils # 0.7 K/mcL (0.0-0.6) H 05/11/18 04:48 ESR 93 mm/hr (0-10) H 05/06/18 13:40 PT 13.5 Seconds (9.4-12.1) H 05/06/18 09:40 Chloride 109 mEq/L (98-107) H 05/11/18 04:48 Carbon Dioxide 22 mEq/L (23-29) L 05/11/18 04:48 POC Glucose 191 mg/dL (70-99) H 05/10/18 20:51 Hemoglobin A1c 6.6 % (-5.6) H 05/11/18 04:48 Calcium 8.2 mg/dL (8.6-10.3) L 05/11/18 04:48 C-Reactive Protein 138 mg/L (Less than 10) H 05/06/18 13:40 Globulin 3.9 g/dL (2.4-3.5) H 05/06/18 09:40 Albumin/Globulin Ratio 0.9 (1.1-2.2) L 05/06/18 09:40 Urine Protein 30 mg/dL (Neg-Trace) H 05/06/18 11:28 Urine Microscopic RBC 5-15 per hpf (0-3) H 05/06/18 11:28 Ur Squamous Epith Cells Many per lpf (None-Few) H 05/06/18 11:28 Vancomycin Trough 17 mcg/mL (5-10) H 05/10/18 08:11 Microbiology, Last 48 Hours 05/07/18 20:30 Anaerobic Culture - Preliminary Right Foot At this time, no anaerobic growth is present. The culture will be finalized after 5 days of incubation. 05/07/18 20:30 Anaerobic Culture - Preliminary Right Foot At this time, no anaerobic growth is present. The culture will be finalized after 5 days of incubation. 05/07/18 17:00 Surgical Biopsy Culture - Final Right Foot Staphylococcus aureus 05/07/18 17:00 Surgical Biopsy Culture - Final Right Foot Staphylococcus aureus 05/07/18 17:00 Surgical Biopsy Culture - Final Right Foot Staphylococcus aureus 05/07/18 20:30 Wound Culture - Final Right Foot Staphylococcus aureus Consult Discharge Plan - Plan Additional Instructions: Home dressing changes should include alginate, 4x4 gauze, and kerlex. Follow up with Dr. Yanez in wound care clinic on . Referrals: Gypsy Guevara CNP [Advanced Practice Nurse] - 05/26/18 9:00 am Delio Jimenez DO [Primary Care Provider] - Gabriel Yanez DPM [Partnered Physician] -
--- NOTE | 2018-05-11 10:46 | Discharge Summary ---
<Chela Up Gilda - Last Filed: 05/11/18 11:27> - NOTES TO OUTPATIENT PROVIDER Notes to Outpatient Provider: Follow up outpatient with infectious disease, Dr. Oliver. Follow up with PCP within 1 week. Orders not resulted at time of discharge: Pending orders 05/07/18 19:05 XR foot 2V RT [XR] Routine 05/07/18 20:30 Culture,Anaerobic [RM] Routine Culture,Anaerobic [RM] Routine Culture,Anaerobic [RM] Routine Culture,Anaerobic [RM] Routine Date of Encounter: 05/11/18 Time of Encounter: 10:44 - Discharge Diagnosis (1) Hypertension Priority: Secondary Status: Acute Qualifiers: Hypertension type: essential hypertension Qualified Code(s): I10 - Essential (primary) hypertension (2) Sepsis Priority: Primary Status: Resolved Qualifiers: Sepsis type: methicillin susceptible Staphylococcus aureus Qualified Code(s ): A41.01 - Sepsis due to Methicillin susceptible Staphylococcus aureus (3) Poorly controlled type 2 diabetes mellitus Priority: Secondary Status: Chronic (4) CKD stage 3 due to type 2 diabetes mellitus Priority: Secondary Status: Chronic (5) Foot osteomyelitis, right Priority: Primary Status: Acute Qualifiers: Osteomyelitis type: unspecified type Qualified Code(s): M86.9 - Osteomyelitis, unspecified Hospital course: Mr. Pablo is a 62 year old male with a history of T2DM with poor wound healing on the right foot since stepping on a nail in August. He presented from the wound and podiatry clinic on 05/06 for concern of cellulitis. He had been on antibiotics for 2 days with worsening swelling and redness over the dorsum of his right foot. He reported intermittent fevers at home up to 101.4. He was hypotensive on presentation at 86/54 and afebrile, HR 68, RR 16, 95% on room air , no leukocytosis. Was found to have a creatinine of 1.84 with a history of CKD. X-ray of the right foot revealed medial forefoot soft tissue ulceration with findings concerning for osteomyelitis of the first metatarsal head. MRI of the right foot showed a large ulceration along the plantar medial foot with underlying marrow signal changes of the first metatarsal head and base of the proximal first phalanx, second metatarsal head and base of the second proximal phalanx, medial and lateral hallux sesamoids compatible with osteomyelitis. Fluid collection in the second interspace measuring 1 x 1.8 x 1.2 cm compatible with abscess. Patient is status post incision and drainage of the right foot with amputation of the first and second metatarsal heads in proximal phalangeal bases on 05/07. He received 2 L normal saline with resolution of a STERLING, Cr 1.02 today. Blood pressure improved and patient was restarted on home medications. Patient experienced intermittent fevers during his stay and has been afebrile for the past 24 hours. He received 5 days of vancomycin and Zosyn , which were discontinued on 05/10 per infectious disease recommendation. Patient was started on Ancef on 05/11 and will be discharged with PICC line for IV Ancef for 41 days. Mr. Pablo is being discharged with home health in stable condition and is scheduled to follow-up with Dr. Vanegas and his PCP. Discharge discussed with: patient - Time Spent with Patient Total time spent providing and/or coordinating discharge services: Less than 30 minutes - Discharge Medications Prescriptions: Oxycodone HCl/Acetaminophen [Percocet 5-325 mg Tablet] 1 each PO Q6HR PRN 5 Days #15 tablet PRN Reason: Pain CeFAZolin Syr 2,000MG/20 ML [Ancef Syringe 2,000 MG/20 ML] 2,000 mg IVPB Q8H 41 Days syringe Home Medications: Gemfibrozil [Lopid] 600 mg PO BID 01/12/18 [History] Insulin Glargine [Lantus] 70 unit SQ HS 01/12/18 [History] Pregabalin [Lyrica] 200 mg PO TID 01/12/18 [History] Acetaminophen [Tylenol] 1,000 mg PO Q6HR PRN 05/06/18 [History] Cetirizine HCl [Zyrtec] 10 mg PO DAILY 05/06/18 [History] Lisinopril [Zestril] 10 mg PO DAILY 05/06/18 [History] Metformin HCl 1,000 mg PO BID 05/06/18 [History] Potassium 99 mg PO DAILY 05/06/18 [History] CeFAZolin Syr 2,000MG/20 ML [Ancef Syringe 2,000 MG/20 ML] 2,000 mg IVPB Q8H 41 Days syringe 05/11/18 [Rx] Oxycodone HCl/Acetaminophen [Percocet 5-325 mg Tablet] 1 each PO Q6HR PRN 5 Days #15 tablet 05/11/18 [Rx] Allergies/Adverse Reactions: 3 Allergy/AdvReac Type Severity Reaction Status Date / Time loratadine [From Claritin-D] Allergy Hives Verified 05/06/18 10:50 pseudoephedrine Allergy Hives Verified 05/06/18 10:50 [From Claritin-D] Date of admission: 05/06/18 12:07 Primary care physician: Delio Jimenez DO Consults: 05/10/18 09:38 Consult to Infectious Diseases [CONS] Routine Consulting Provider: Infectious Disease Ngoc Reason for Consult: DM foot Call Completed: Yes 05/10/18 17:40 Consult to Section Supervisor [CONS] Routine Reason for SW Consult: may need placement 05/11/18 09:12 Consult to Occupational Therapy [CONS] Routine Comment: Evaluate, develop and implement POC Reason for Consult: eval for poss ecf, needs pre-cert Does patient have active BEDREST order?: No Is patient medically & hemodynamically stable?: Yes Consult to Physical Therapy [CONS] Routine Comment: Evaluate, develop and implement POC Reason for Consult: eval for poss ecf, needs pre-cert Does patient have active BEDREST order?: No Is patient medically & hemodynamically stable?: Yes - Constitutional Vitals: Temp Pulse Resp BP Pulse Ox 98.1 F 75 18 150/73 92 05/11/18 07:14 05/11/18 07:14 05/11/18 07:14 05/11/18 07:14 05/11/18 07:14 Exam: General: Alert and oriented, in mild pain. HEENT:EOM, Normocephalic, atraumatic Cardiovascular: Normal S1 & S2, No JVD. Lungs: clear to auscultation, no wheezes/rales Abdomen: Soft, non-tender, no rigidity. Extremities: S/P right foot I/D, well dressed. No LE edema noted. Neurological: No focal deficits Skin: Normal color, no rash, no lesions. Rest of the physical exam is non contributory - Patient Status Disposition: Home Health Service Condition: Fair Functional capacity at discharge: independent ambulation Overall status at discharge: patient is progressing back to baseline - Discharge Instructions Instructions: Diabetic Foot Care (DC) Follow Up With: Gabriel Yanez DPM [Partnered Physician] - Gypsy Guevara CAGE CASHIER [Advanced Practice Nurse] - 05/26/18 9:00 am Delio Jimenez DO [Primary Care Provider] - (Called and Left message, Please try calling back fro follow up appt.) Additional Instructions: Home dressing changes should include alginate, 4x4 gauze, and kerlex. Follow up with Dr. Yanez in wound care clinic on . - Diet and Activity Activity: increase activity as tolerated Diet: diabetic diet <Thallapaneni,Rambabu - Last Filed: 05/11/18 17:46> Orders not resulted at time of discharge: Pending orders 05/07/18 19:05 XR foot 2V RT [XR] Routine 05/07/18 20:30 Culture,Anaerobic [RM] Routine Culture,Anaerobic [RM] Routine Culture,Anaerobic [RM] Routine Culture,Anaerobic [RM] Routine 05/11/18 13:06 C diff [C.difficile Toxin PCR (>=2yo)] [MOLMIC] Stat Date of Encounter: 05/11/18 - Discharge Diagnosis (1) Hypertension Status: Acute Qualifiers: Hypertension type: essential hypertension Qualified Code(s): I10 - Essential (primary) hypertension (2) DVT prophylaxis Status: Acute (3) Foot osteomyelitis, right Status: Acute Qualifiers: Osteomyelitis type: unspecified type Qualified Code(s): M86.9 - Osteomyelitis, unspecified (4) Diabetes mellitus Status: Acute Qualifiers: Diabetes mellitus type: type 2 Diabetes mellitus senior living insulin use: with truck terminal manager use Diabetes mellitus complication status: with unspecified complications Qualified Code(s): E11.8 - Type 2 diabetes mellitus with unspecified complications; Z79.4 - long term care pharmacist (current) use of insulin (5) Acute on chronic kidney failure Status: Acute Qualifiers: Acute renal failure type: unspecified Chronic kidney disease stage: stage 3 (moderate) Qualified Code(s): N17.9 - Acute kidney failure, unspecified; N18.3 - Chronic kidney disease, stage 3 (moderate) Hospital course: Mr. Pablo is a 62 year old male - Time Spent with Patient Total time spent providing and/or coordinating discharge services: Date of admission: 05/06/18 12:07 Primary care physician: Delio Jimenez DO Consults: 05/10/18 09:38 Consult to Infectious Diseases [CONS] Routine Consulting Provider: Infectious Disease Ngoc Reason for Consult: DM foot Call Completed: Yes 05/10/18 17:40 Consult to Section Supervisor [CONS] Routine Reason for SW Consult: may need placement - Constitutional Vitals: Temp Pulse Resp BP Pulse Ox 98.1 F 62 17 164/89 92 05/11/18 11:07 05/11/18 11:07 05/11/18 11:07 05/11/18 11:07 05/11/18 11:07 - Attending Attestation I examined this patient and my medical decision-making was reviewed with the Resident Physician Dr. Up. I agree with the documented findings, disposition and treatment plan as described except to the extent set forth below. Mr. Pablo is a 62 year old male with past history of diabetes, right foot wound since August 2017 after stepping on a nail complicate by poor healing, presented from the wound clinic for the concern of cellulitis. Pt was admitted here for possible Rt foot osteomyelitis. He was evaluated by Parking Enforcement Manager who did Incision and drainage right foot, debridement of bone right foot (right 1st met and proximal phalanx, 2nd met and proximal phalanx). Wound cx did grow MSSA, so ID recommend 6 weeks IV Ancef 2gm Q8Hr. So will place Mid line for truck terminal manager abx and d/c home today in stable condition. Recommend to f/u with Wound care and Parking Enforcement Manager as an out pt Gen: A, A, O X 3 Chest: Diminished BS b/l Heart: S1S2+
[2018-05-11 11:09] VITALS: BP 164/89
--- NOTE | 2018-05-11 13:09 | Infectious Disease Progress No ---
Date of Encounter: 05/11/18 Time of Encounter: 09:30 - Assessment and Plan (1) Foot osteomyelitis, right Current Visit: Yes Status: Acute Location: Rgiht foot 1st metatarsal head and proximal phalanx, right foot 2nd metatarsal head and proximal phalanx, medial and lateral sesamoids. Causative organism: MSSA. Likely secondary to non-healing chronic foot ulcer. Failed outpatient oral antibiotics. Right foot XR showed findings consistent with osteomyelitis and 1st metatarsal head and proximal phalanx. MRI of the foot showed osteomyelitis of the 1st metatarsal head and proximal phalanx and reactive osteitis vs. early osteomyelitis of the distal phalanx with osteomyelitis of the 2nd metatarsal head and proximal phalanx with osteomyelitis of the medial and lateral hallux sesamoids. There was also an abscess to the 2nd interspace. Podiatry consulted. Status post I & D right foot with debridement of bone of the right foot. Intra-op cultures positive for MSSA, including bone to assess for clear margins on the 1st metatarsal and abscess. Continue wound care and activity restrictions per the Podiatry team. Continue Ancef 2 grams IV Q8H. Duration of treatment depends on the clinical picture, but likely a total of 6- 8 weeks post-op. The patient has opted to continue Ancef Q8H infusions. Monitor renal function and dose-adjust antibiotics. family services coordinator to assist with discharge planning. Consult VAT for midline placement prior to discharge. Will need weekly CBC, BUN/Cr, ESR and CRP. Will need weekly IV care per protocol. Follow up with ID 05/26/18 at 0900. Qualifiers: Osteomyelitis type: unspecified type Qualified Code(s): M86.9 - Osteomyelitis, unspecified (2) Abscess of right foot Current Visit: Yes Status: Acute Location: Right foot 2nd interspace. Causative organism: MSSA. Etiology: Likely secondary to right non-healing foot ulcer. Podiatry consulted. Status post I & D. Antibiotics as above. (3) Acute on chronic kidney failure Current Visit: Yes Status: Acute Likely secondary to sepsis. Resolved. Qualifiers: Acute renal failure type: unspecified Chronic kidney disease stage: stage 3 (moderate) Qualified Code(s): N17.9 - Acute kidney failure, unspecified; N18.3 - Chronic kidney disease, stage 3 (moderate) (4) Diabetic foot ulcer Current Visit: Yes Status: Acute Previous history of stepping on a nail in July. Has had a non-healing ulcer since then. Follows in the wound clinic. Infection in December 2017 with I & D x2. Grew S. constellatus and B. fragilis at that time. Treated with IV antibiotics inpatient and transitioned to PO Levaquin and Augmentin on discharge. Podiatry consulted. Wound care and dressing changes per the Podiatry team. Qualifiers: Diabetic foot ulcer location: midfoot Diabetes mellitus type: type 2 Laterality: right Non-pressure ulcer stage: with fat layer exposed Qualified Code(s): E11.621 - Type 2 diabetes mellitus with foot ulcer; L97.412 - Non-pressure chronic ulcer of right heel and midfoot with fat layer exposed (5) Diabetes mellitus Current Visit: Yes Status: Acute Uncontrolled. HgbA1C 9.3% in December. Recommend re-checking HgbA1C. Recommend aggressive glucose monitoring and control to promote wound healing and prevent re-infection. Management per the primary team. Qualifiers: Diabetes mellitus type: type 2 Diabetes mellitus manager intermediate insulin use: with manager intermediate use Diabetes mellitus complication status: with unspecified complications Qualified Code(s): E11.8 - Type 2 diabetes mellitus with unspecified complications; Z79.4 - meterman (current) use of insulin (6) Hypertension Current Visit: No Status: Acute Qualifiers: Hypertension type: essential hypertension Qualified Code(s): I10 - Essential (primary) hypertension (7) CKD stage 3 due to type 2 diabetes mellitus Current Visit: No Status: Chronic (8) Obesity (BMI 30.0-34.9) Current Visit: No Status: Chronic (9) HLD (hyperlipidemia) Current Visit: No Status: Acute Qualifiers: Hyperlipidemia type: unspecified Qualified Code(s): E78.5 - Hyperlipidemia , unspecified (10) Diarrhea Current Visit: Yes Status: Acute 4-5 loose stools per day. Check C diff. Place in contact/C. diff precautions for now. Can discontinue if testing is negative. Continue probiotics. Qualifiers: Diarrhea type: unspecified type Qualified Code(s): R19.7 - Diarrhea, unspecified - Subjective Interval history: Patient seen and examined. No acute events noted overnight. Patient states that overall he feels well. Denies fevers, chills, or rigors. Denies chest pain, shortness of breath, or cough. Denies nausea, vomiting, or constipation. Reports 4-5 loose stools per day that are not mucousy, watery, or foul smelling. Denies abdominal pain, urinary complaints, or appetite changes. Denies oral thrush or skin rashes. Denies pain at the surgical site. Infect Dis PN-Objective Data - Labs CBC & Chem 7: 05/11/18 04:48 05/11/18 04:48 Labs: Laboratory Results - last 24 hr 05/10/18 05/10/18 05/10/18 07:05 11:25 15:58 WBC RBC Hgb Hct MCV MCH MCHC RDW Plt Count MPV Immature Gran % Seg Neutrophils % Lymphocytes % Monocytes % Eosinophils % Basophils % Neutrophils # Lymphocytes # Monocytes # Eosinophils # Basophils # Sodium Potassium Chloride Carbon Dioxide BUN Creatinine Est GFR ( Amer) Est GFR (Non-Af Amer) BUN/Creatinine Ratio Glucose POC Glucose 139 H 231 H 215 H Est Mean Plasma Glucose Hemoglobin A1c Calculated Osmolality Calcium 05/10/18 05/11/18 05/11/18 20:51 04:48 04:48 WBC 7.9 RBC 3.28 L Hgb 9.5 L Hct 27.7 L MCV 84.5 MCH 29.0 MCHC 34.3 RDW 12.3 Plt Count 399 MPV 9.9 Immature Gran % 0.4 Seg Neutrophils % 53.7 Lymphocytes % 26.8 Monocytes % 9.3 Eosinophils % 9.2 Basophils % 0.6 Neutrophils # 4.3 Lymphocytes # 2.1 Monocytes # 0.7 Eosinophils # 0.7 H Basophils # 0.1 Sodium 138 Potassium 3.6 Chloride 109 H Carbon Dioxide 22 L BUN 17 Creatinine 1.02 Est GFR ( Amer) > 60 Est GFR (Non-Af Amer) > 60 BUN/Creatinine Ratio 17 Glucose 96 POC Glucose 191 H Est Mean Plasma Glucose Hemoglobin A1c Calculated Osmolality 287 Calcium 8.2 L 05/11/18 04:48 WBC RBC Hgb Hct MCV MCH MCHC RDW Plt Count MPV Immature Gran % Seg Neutrophils % Lymphocytes % Monocytes % Eosinophils % Basophils % Neutrophils # Lymphocytes # Monocytes # Eosinophils # Basophils # Sodium Potassium Chloride Carbon Dioxide BUN Creatinine Est GFR ( Amer) Est GFR (Non-Af Amer) BUN/Creatinine Ratio Glucose POC Glucose Est Mean Plasma Glucose 143 Hemoglobin A1c 6.6 H Calculated Osmolality Calcium Cultures: Cultures 05/07/18 20:30 Anaerobic Culture - Preliminary Right Foot At this time, no anaerobic growth is present. The culture will be finalized after 5 days of incubation. 05/07/18 20:30 Anaerobic Culture - Preliminary Right Foot At this time, no anaerobic growth is present. The culture will be finalized after 5 days of incubation. 05/07/18 17:00 Surgical Biopsy Culture - Final Right Foot Staphylococcus aureus 05/07/18 17:00 Surgical Biopsy Culture - Final Right Foot Staphylococcus aureus 05/07/18 17:00 Surgical Biopsy Culture - Final Right Foot Staphylococcus aureus 05/07/18 20:30 Wound Culture - Final Right Foot Staphylococcus aureus Exam - Constitutional Vitals: Temp Pulse Resp BP Pulse Ox 98.1 F 62 17 164/89 92 05/11/18 11:07 05/11/18 11:07 05/11/18 11:07 05/11/18 11:07 05/11/18 11:07 General appearance: cooperative, no acute distress, obese - Head Head exam: Present: atraumatic, normal inspection, normocephalic - Eye Eye exam: Present: EOMI, normal appearance, PERRL Pupils: Present: normal accommodation - ENT ENT exam: Present: mucous membranes moist - Neck Neck exam: Present: normal inspection - Respiratory Respiratory exam: Present: CTAB. Absent: rales, respiratory distress, rhonchi, wheezes - Cardiovascular Cardiovascular exam: Present: RRR, +S1, +S2 - GI/Abdominal GI/Abdominal exam: Present: normal bowel sounds, soft. Absent: distended, tenderness - Extremities Exam Extremities exam: Present: normal inspection. Absent: joint swelling, pedal edema, tenderness Additional comments: Right foot dressing/boot noted. - Neurological Exam Neurological exam: Present: alert, oriented X3, no focal deficits - Psychiatric Psychiatric exam: Present: normal affect, normal mood - Skin Skin exam: Present: dry, intact, normal color, warm Consult Discharge Plan - Plan Instructions: Diabetic Foot Care (DC) Additional Instructions: Home dressing changes should include alginate, 4x4 gauze, and kerlex. Follow up with Dr. Yanez in wound care clinic on . Referrals: Gabriel Yanez DPM [Partnered Physician] - Gypsy Guevara, SWAT TEAM MEMBER [Advanced Practice Nurse] - 05/26/18 9:00 am Delio Jimenez [Primary Care Provider] - (Called and Left message, Please try calling back fro follow up appt.) Prescriptions: Oxycodone HCl/Acetaminophen [Percocet 5-325 mg Tablet] 1 each PO Q6HR PRN 5 Days #15 tablet PRN Reason: Pain CeFAZolin Syr 2,000MG/20 ML [Ancef Syringe 2,000 MG/20 ML] 2,000 mg IVPB Q8H 41 Days syringe - Attending Attestation I examined this patient and my medical decision-making was reviewed with the Resident Physician. I agree with the documented findings, disposition and treatment plan as described except to the extent set forth below.
== END 2018-05-11 15:34 | disposition home health service (06) | DRG 854 ==
LOC: EMEROOARM 09:20 → SUATTDRO 12:07 → 2ANU 12:07
PROVIDERS: ADMIT Internal Medicine; ATTEND Family Medicine

== ENCOUNTER 2021-11-05 16:48 | Inpatient (IN) ==
[2021-11-05 17:27] LABS: Basophils % 0.2 %; Eosinophils # 0.1 K/mcL (0.0-0.6); Eosinophils % 0.3 %; Hematocrit 28.3 % (37.5-50.1); Hemoglobin 9.3 g/dL (12.9-16.9); Immature Granulocytes % 1.1 % (0-4); Lymphocytes # 0.8 K/mcL (0.6-4.6); Lymphocytes % 3.9 %; Mean Corpuscular HGB Conc 32.9 g/dL (31.6-35.5); Mean Corpuscular Hemoglobin 28.9 pg (28.0-33.3); Mean Corpuscular Volume 87.9 fL (83.0-100.0); Mean Platelet Volume 11.1 fL (9.4-12.4); Monocytes # 1.2 K/mcL (0.0-1.3); Monocytes % 6.1 %; Neutrophils # 17.5 K/mcL (1.6-8.9); Platelet Count 492 K/mcL (140-400); Red Blood Count 3.22 M/mcL (4.19-5.50); Red Cell Distribution Width 13.9 % (11.5-14.5); Segmented Neutrophils % 88.4 %; White Blood Count 19.7 K/mcL (4.3-11.1)
[2021-11-05 17:43] LABS: INR 1.4; Prothrombin Time 15.2 Seconds (9.4-12.1)
[2021-11-05 17:48] LABS: Alanine Aminotransferase 11 Units/L (7-52); Albumin 2.8 g/dL (3.5-5.7); Albumin/Globulin Ratio 0.7 (1.1-2.2); Alkaline Phosphatase 82 Units/L (34-104); Aspartate Amino Transferase 11 Units/L (13-39); BUN/Creatinine Ratio 31 (6-26); Bilirubin,Indirect 0.4 mg/dL (0.0-1.0); Bilirubin,Total 0.4 mg/dL (0.3-1.0); Blood Urea Nitrogen 69 mg/dL (8-23); Calcium 8.9 mg/dL (8.6-10.3); Carbon Dioxide 22 mEq/L (23-29); Chloride 98 mEq/L (98-107); Globulin 4.3 g/dL (2.4-3.5); Glucose 184 mg/dL (70-105); Osmolality,Calculated 301 (280-300); Potassium 3.9 mEq/L (3.5-5.1); Sodium 133 mEq/L (136-145); Total Protein 7.1 g/dL (6.4-8.9); eGFR For African Americans 36 (> 60); eGFR For Non-African Americans 30 (> 60)
[2021-11-05 17:50] LABS: Activated Partial Thrombo Time 37.9 Seconds (26.0-36.0)
[2021-11-05 17:54] LABS: Troponin I 0.04 ng/mL (< 0.04)
[2021-11-05] MEDS ORDERED: Gadolinium Contrast Agent (WT Based) IV PRN (20:27)
[2021-11-05 20:36] LABS: Amorphous Sediment,Urine Few per hpf (None-Few); Bilirubin,Urine Negative (Negative); Blood,Urine Negative (Negative); Clarity,Urine Clear (Clear); Color,Urine Yellow (Yellow); Glucose,Urine (UA) Normal (Normal); Hyaline Casts,Urine Moderate per lpf (None Seen); Ketones,Urine Negative (Negative); Leukocyte Esterase,Urine Negative (Negative); Mucus,Urine Few per lpf (None-Few); Nitrite,Urine Negative (Negative); PH,Urine 5.5 pH Units (5.0-8.0); Protein,Urine 50 mg/dL (Neg-Trace); RBC,Urine 0-3 per hpf (0-3); Specific Gravity,Urine 1.017 (1.010-1.025); Urobilinogen,Urine Normal (Normal)
[2021-11-05 20:42] LABS: Amphetamine Screen,Urine Negative ng/mL (Cutoff=1000); Barbiturate Screen,Urine Negative ng/mL (Cutoff=200); Benzodiazepines Screen,Urine Negative ng/mL (Cutoff=200); Cannabinoid Screen,Urine Negative ng/mL (Cutoff = 50); Cocaine Screen,Urine Negative ng/mL (Cutoff= 300); Opiate Screen,Urine Negative ng/mL (Cutoff=300); Phencyclidine Screen,Urine Negative ng/mL (Cutoff=25)
[2021-11-05 22:22] LABS: C-Reactive Protein > 300 mg/L (Less than 10)
[2021-11-05] MEDS ORDERED: Melatonin 3 MG TABLET PO PRN (23:09)
[2021-11-05] MEDS ORDERED: Naloxone 0.4 MG/ML INJ IVP PRN (23:09)
[2021-11-05] MEDS ORDERED: Ondansetron 4 MG/2 ML VIAL IVP PRN (23:09)
[2021-11-06 07:40] LABS: Basophils % 0.2 %; Eosinophils # 0.1 K/mcL (0.0-0.6); Eosinophils % 0.3 %; Hematocrit 26.3 % (37.5-50.1); Hemoglobin 8.9 g/dL (12.9-16.9); Immature Granulocytes % 1.1 % (0-4); Lymphocytes # 0.6 K/mcL (0.6-4.6); Lymphocytes % 3.7 %; Mean Corpuscular HGB Conc 33.8 g/dL (31.6-35.5); Mean Corpuscular Hemoglobin 29.5 pg (28.0-33.3); Mean Corpuscular Volume 87.1 fL (83.0-100.0); Mean Platelet Volume 11.2 fL (9.4-12.4); Monocytes # 1.2 K/mcL (0.0-1.3); Monocytes % 7.2 %; Neutrophils # 14.2 K/mcL (1.6-8.9); Platelet Count 472 K/mcL (140-400); Red Blood Count 3.02 M/mcL (4.19-5.50); Red Cell Distribution Width 13.9 % (11.5-14.5); Segmented Neutrophils % 87.5 %; White Blood Count 16.2 K/mcL (4.3-11.1)
[2021-11-06] MEDS ORDERED: *HR* Dextrose 50 % in Water (Syg) 50 ML SYRINGE IVP PRN (07:50)
[2021-11-06] MEDS ORDERED: D5% in Water 1,000 ML IVC PRN (07:50)
[2021-11-06] MEDS ORDERED: Dextrose 4 GM Chewable Tablets PO PRN ×2 (07:50)
[2021-11-06] MEDS ORDERED: 0.9 % Sodium Chloride 1,000 ML IVC ONE (07:58)
[2021-11-06 08:02] LABS: Albumin 2.7 g/dL (3.5-5.7); Albumin/Globulin Ratio 0.7 (1.1-2.2); Bilirubin,Total 0.4 mg/dL (0.3-1.0); Calcium 8.8 mg/dL (8.6-10.3); Globulin 3.9 g/dL (2.4-3.5); Magnesium 1.9 mg/dL (1.6-2.6); Phosphorous 3.5 mg/dL (2.7-4.5); Potassium 3.9 mEq/L (3.5-5.1); Total Protein 6.6 g/dL (6.4-8.9)
[2021-11-06] MEDS ORDERED: Perflutren Lipid Microsphere 1.3 ML in 0.9 % Sodium Chloride 8.7 ML IVP PRN (10:00)
[2021-11-06 11:23] LABS: Troponin I 0.03 ng/mL (< 0.04)
[2021-11-06] MEDS: Piperacillin/Tazobactam 3.375 GM in 0.9 % Sodium Chloride Mini Bag 100 ML IVPB SCH ×2 (12:01→16:22)
[2021-11-06] MEDS: Vancomycin 1,500 MG/265 ML IV.SOLN IVPB SCH (12:01)
[2021-11-06] MEDS: Insulin LISPRO 300 UNITS/3 ML VIAL SUBQ SCH ×2 (12:02→18:04)
[2021-11-06] MEDS: *HR* Heparin 5,000 UNIT/ML VIAL SQ SCH (16:21)
[2021-11-06] MEDS: predniSONE 20 MG TABLET PO SCH (16:22)
[2021-11-06] MEDS: amLODIPine 5 MG TABLET PO SCH (21:17)
[2021-11-06] MEDS: gemfibroziL 600 MG TABLET PO SCH (21:17)
[2021-11-06] MEDS: Metoprolol 100 MG TABLET PO SCH (21:18)
[2021-11-06] MEDS: Pregabalin 50 MG CAPSULE PO SCH (21:18)
[2021-11-06] MEDS: Insulin DETEMIR 100 UNIT/ML X5UNITS SUBQ SCH (21:20)
[2021-11-07] MEDS: Insulin LISPRO 300 UNITS/3 ML VIAL SUBQ SCH ×4 (00:14→19:41)
[2021-11-07] MEDS: Piperacillin/Tazobactam 3.375 GM in 0.9 % Sodium Chloride Mini Bag 100 ML IVPB SCH ×3 (00:14→16:05)
[2021-11-07 00:29] LABS: Enterococcus faecalis by PCR Not Detected (Not Detect); Enterococcus faecium by PCR Not Detected (Not Detect); Staphylococcus by PCR Not Detected (Not Detect); mecA/C & MREJ (MRSA) Gene DETECTED (Not Detect)
[2021-11-07 00:30] LABS: A.calcoaceticus-baumannii cplx Not Detected (Not Detect); Bacteroides fragilis by PCR Not Detected (Not Detect); Candida albicans by PCR Not Detected (Not Detect); Candida auris by PCR Not Detected (Not Detect); Candida glabrata by PCR Not Detected (Not Detect); Candida krusei by PCR Not Detected (Not Detect); Candida parapsilosis by PCR Not Detected (Not Detect); Candida tropicalis by PCR Not Detected (Not Detect); Crypto. neoformans/gattii PCR Not Detected (Not Detect); Enterobacter cloacae Cmplx PCR Not Detected (Not Detect); Enterobacterales by PCR Not Detected (Not Detect); Escherichia coli by PCR Not Detected (Not Detect); Klebs. pneumoniae group by PCR Not Detected (Not Detect); Klebsiella aerogenes by PCR Not Detected (Not Detect); Klebsiella oxytoca by PCR Not Detected (Not Detect); Proteus by PCR Not Detected (Not Detect); Pseudomonas aeruginosa by PCR Not Detected (Not Detect); Salmonella species by PCR Not Detected (Not Detect); Serratia marcescens by PCR Not Detected (Not Detect); Staph epidermidis by PCR Not Detected (Not Detect); Staph lugdunensis by PCR Not Detected (Not Detect); Staphylococcus aureus by PCR DETECTED (Not Detect); Stenotrophomonas maltophilia Not Detected (Not Detect); Streptococcus agalactiae(B)PCR Not Detected (Not Detect); Streptococcus by PCR Not Detected (Not Detect); Streptococcus pneumoniae PCR Not Detected (Not Detect); Streptococcus pyogenes (A) PCR Not Detected (Not Detect)
[2021-11-07] MEDS: *HR* Heparin 5,000 UNIT/ML VIAL SQ SCH ×2 (03:23→19:40)
[2021-11-07 07:03] LABS: Basophils % 0.2 %; Hemoglobin 8.9 g/dL (12.9-16.9); Immature Granulocytes % 1.2 % (0-4); Lymphocytes # 0.5 K/mcL (0.6-4.6); Lymphocytes % 2.7 %; Mean Corpuscular Hemoglobin 28.7 pg (28.0-33.3); Mean Corpuscular Volume 87.1 fL (83.0-100.0); Mean Platelet Volume 11.2 fL (9.4-12.4); Monocytes # 0.5 K/mcL (0.0-1.3); Monocytes % 2.9 %; Neutrophils # 16.1 K/mcL (1.6-8.9); Platelet Count 492 K/mcL (140-400); White Blood Count 17.3 K/mcL (4.3-11.1)
[2021-11-07 07:36] LABS: Chol/HDL Ratio 6.7 (0-4.9); Potassium 3.9 mEq/L (3.5-5.1)
[2021-11-07 07:45] LABS: Thyroid Stimulating Hormone 0.229 mcIU/mL (0.340-5.600)
[2021-11-07 08:03] LABS: Estimated Average Glucose 169 mg/dl; Hemoglobin A1C 7.5 %
[2021-11-07] MEDS: amLODIPine 5 MG TABLET PO SCH ×2 (08:22→21:27)
[2021-11-07] MEDS: Metoprolol 100 MG TABLET PO SCH ×2 (08:22→21:27)
[2021-11-07] MEDS: predniSONE 20 MG TABLET PO SCH (08:22)
[2021-11-07] MEDS: Pregabalin 50 MG CAPSULE PO SCH ×3 (08:23→21:27)
[2021-11-07] MEDS: gemfibroziL 600 MG TABLET PO SCH ×2 (08:43→21:27)
[2021-11-07] MEDS: Aspirin Enteric Coated 81 MG Tablet PO SCH (09:44)
[2021-11-07] MEDS: Vancomycin 1,500 MG/265 ML IV.SOLN IVPB SCH (10:30)
[2021-11-07] MEDS ORDERED: Acetaminophen IV 1,000 MG/100 ML BAG IVPB ONE (13:08)
[2021-11-07] MEDS ORDERED: Famotidine 20 MG/2 ML VIAL IVP ONE (13:08)
[2021-11-07] MEDS ORDERED: *HR* FentaNYL (PF) 100 MCG/2 ML VIAL ONE (15:08)
[2021-11-07] MEDS ORDERED: Lidocaine -MPF 2% 2 ML VIAL ONE (15:17)
[2021-11-07] MEDS ORDERED: Ondansetron 4 MG/2 ML VIAL ONE (15:17)
[2021-11-07] MEDS ORDERED: *HR* Succinylcholine 200 MG/10 ML VIAL IVP ONE (15:17)
[2021-11-07] MEDS: lisinopriL 20 MG TABLET PO SCH (19:40)
[2021-11-07] MEDS: Insulin DETEMIR 100 UNIT/ML X5UNITS SUBQ SCH (21:28)
[2021-11-08] MEDS: Piperacillin/Tazobactam 3.375 GM in 0.9 % Sodium Chloride Mini Bag 100 ML IVPB SCH ×2 (00:06→08:24)
[2021-11-08] MEDS: Insulin LISPRO 300 UNITS/3 ML VIAL SUBQ SCH ×5 (00:07→22:06)
[2021-11-08 05:39] LABS: Calcium 8.9 mg/dL (8.6-10.3); Magnesium 1.9 mg/dL (1.6-2.6); Potassium 4.1 mEq/L (3.5-5.1)
[2021-11-08] MEDS: *HR* Heparin 5,000 UNIT/ML VIAL SQ SCH ×2 (05:51→17:26)
[2021-11-08 05:54] LABS: Triiodothyronine (T3) Free 2.47 pg/mL (2.50-3.90)
[2021-11-08] MEDS: predniSONE 20 MG TABLET PO SCH (08:25)
[2021-11-08] MEDS: Aspirin Enteric Coated 81 MG Tablet PO SCH (08:25)
[2021-11-08] MEDS: Metoprolol 100 MG TABLET PO SCH ×2 (08:25→21:04)
[2021-11-08] MEDS: Pregabalin 50 MG CAPSULE PO SCH ×3 (08:25→21:03)
[2021-11-08] MEDS: amLODIPine 5 MG TABLET PO SCH ×2 (08:25→21:04)
[2021-11-08] MEDS: hydroCHLOROthiazide 25 MG TABLET PO SCH (08:26)
[2021-11-08] MEDS: gemfibroziL 600 MG TABLET PO SCH ×2 (08:38→21:03)
[2021-11-08 09:29] LABS: Basophils % 0.1 %; Hematocrit 24.3 % (37.5-50.1); Hemoglobin 8.1 g/dL (12.9-16.9); Immature Granulocytes % 1.2 % (0-4); Immature Platelets 5.4 % (1.1-6.1); Lymphocytes # 0.9 K/mcL (0.6-4.6); Lymphocytes % 4.5 %; Mean Corpuscular HGB Conc 33.3 g/dL (31.6-35.5); Mean Corpuscular Hemoglobin 29.8 pg (28.0-33.3); Mean Corpuscular Volume 89.3 fL (83.0-100.0); Mean Platelet Volume 11.4 fL (9.4-12.4); Monocytes % 5.1 %; Neutrophils # 17.5 K/mcL (1.6-8.9); Platelet Count 683 K/mcL (140-400); Red Blood Count 2.72 M/mcL (4.19-5.50); Red Cell Distribution Width 14.4 % (11.5-14.5); Segmented Neutrophils % 89.1 %; White Blood Count 19.7 K/mcL (4.3-11.1)
[2021-11-08] MEDS: Vancomycin 1,500 MG/265 ML IV.SOLN IVPB SCH (10:33)
[2021-11-08] MEDS ORDERED: Sennosides 8.6 MG TABLET PO PRN (15:23)
[2021-11-08] MEDS: lisinopriL 20 MG TABLET PO SCH (17:26)
[2021-11-08] MEDS ORDERED: Insulin DETEMIR 100 UNIT/ML X5UNITS SUBQ SCH (21:00)
[2021-11-08] MEDS: Acetaminophen 325 MG TABLET PO PRN (21:03)
[2021-11-09 03:33] LABS: Basophils % 0.1 %; Hematocrit 27.1 % (37.5-50.1); Hemoglobin 8.9 g/dL (12.9-16.9); Immature Granulocytes % 1.4 % (0-4); Lymphocytes # 0.5 K/mcL (0.6-4.6); Lymphocytes % 4.2 %; Mean Corpuscular HGB Conc 32.8 g/dL (31.6-35.5); Mean Corpuscular Hemoglobin 29.3 pg (28.0-33.3); Mean Corpuscular Volume 89.1 fL (83.0-100.0); Mean Platelet Volume 11.1 fL (9.4-12.4); Monocytes # 0.6 K/mcL (0.0-1.3); Monocytes % 4.6 %; Neutrophils # 10.8 K/mcL (1.6-8.9); Platelet Count 569 K/mcL (140-400); Red Blood Count 3.04 M/mcL (4.19-5.50); Red Cell Distribution Width 14.1 % (11.5-14.5); Segmented Neutrophils % 89.7 %
[2021-11-09 03:53] LABS: Calcium 8.5 mg/dL (8.6-10.3); Potassium 4.2 mEq/L (3.5-5.1)
[2021-11-09] MEDS: *HR* Heparin 5,000 UNIT/ML VIAL SQ SCH ×2 (06:13→18:03)
[2021-11-09] MEDS: Vancomycin 1,500 MG/265 ML IV.SOLN IVPB SCH (09:11)
[2021-11-09] MEDS: Pregabalin 50 MG CAPSULE PO SCH ×3 (09:12→20:20)
[2021-11-09] MEDS: Metoprolol 100 MG TABLET PO SCH ×2 (09:12→20:20)
[2021-11-09] MEDS: hydroCHLOROthiazide 25 MG TABLET PO SCH (09:12)
[2021-11-09] MEDS: amLODIPine 5 MG TABLET PO SCH ×2 (09:12→20:20)
[2021-11-09] MEDS: Aspirin Enteric Coated 81 MG Tablet PO SCH (09:12)
[2021-11-09] MEDS: Insulin LISPRO 300 UNITS/3 ML VIAL SUBQ SCH ×4 (09:13→20:21)
[2021-11-09] MEDS: gemfibroziL 600 MG TABLET PO SCH ×2 (09:18→20:20)
[2021-11-09] MEDS: lisinopriL 20 MG TABLET PO SCH (18:03)
[2021-11-09] MEDS ORDERED: Insulin DETEMIR 100 UNIT/ML X5UNITS SUBQ SCH (21:00)
[2021-11-09] MEDS: QUEtiapine Fumarate 25 MG TABLET PO SCH (23:02)
[2021-11-10] MEDS ORDERED: Isovue-370 500 ML BOTTLE IVP ONE (07:19)
[2021-11-10] MEDS: *HR* Heparin 5,000 UNIT/ML VIAL SQ SCH ×2 (07:23→17:18)
[2021-11-10 07:55] LABS: Basophils % 0.2 %; Eosinophils % 0.1 %; Hematocrit 27.3 % (37.5-50.1); Hemoglobin 8.8 g/dL (12.9-16.9); Immature Granulocytes % 2.9 % (0-4); Lymphocytes # 0.7 K/mcL (0.6-4.6); Lymphocytes % 4.3 %; Mean Corpuscular HGB Conc 32.2 g/dL (31.6-35.5); Mean Corpuscular Hemoglobin 28.9 pg (28.0-33.3); Mean Corpuscular Volume 89.8 fL (83.0-100.0); Mean Platelet Volume 11.1 fL (9.4-12.4); Monocytes # 0.8 K/mcL (0.0-1.3); Monocytes % 4.8 %; Neutrophils # 13.6 K/mcL (1.6-8.9); Platelet Count 695 K/mcL (140-400); Red Blood Count 3.04 M/mcL (4.19-5.50); Red Cell Distribution Width 14.2 % (11.5-14.5); Segmented Neutrophils % 87.7 %; White Blood Count 15.5 K/mcL (4.3-11.1)
[2021-11-10 08:04] LABS: Potassium 4.1 mEq/L (3.5-5.1)
[2021-11-10] MEDS: Insulin LISPRO 300 UNITS/3 ML VIAL SUBQ SCH ×4 (09:22→20:07)
[2021-11-10] MEDS: Acetaminophen 325 MG TABLET PO PRN (09:24)
[2021-11-10] MEDS: Aspirin Enteric Coated 81 MG Tablet PO SCH (09:47)
[2021-11-10] MEDS: hydroCHLOROthiazide 25 MG TABLET PO SCH (09:47)
[2021-11-10] MEDS: gemfibroziL 600 MG TABLET PO SCH ×2 (09:47→20:08)
[2021-11-10] MEDS: Pregabalin 50 MG CAPSULE PO SCH ×3 (09:48→20:08)
[2021-11-10] MEDS: Metoprolol 100 MG TABLET PO SCH ×2 (09:48→20:08)
[2021-11-10] MEDS: amLODIPine 5 MG TABLET PO SCH ×2 (09:48→20:08)
[2021-11-10] MEDS: Vancomycin 1,500 MG/265 ML IV.SOLN IVPB SCH (09:51)
[2021-11-10 15:16] LABS: Adenovirus Not Detected (Not Detect); Bordetella Pertussis Not Detected (Not Detect); Chlamydophila pneumoniae Not Detected (Not Detect); Coronavirus 229E Not Detected (Not Detect); Coronavirus HKU1 Not Detected (Not Detect); Coronavirus NL63 Not Detected (Not Detect); Coronavirus OC43 Not Detected (Not Detect); Human Metapneumovirus Not Detected (Not Detect); Human Rhinovirus/Enterovirus Not Detected (Not Detect); Influenza A Subtype 2009 H1 Not Detected (Not Detect); Influenza B Not Detected (Not Detect); Mycoplasma pneumoniae Not Detected (Not Detect); Parainfluenza Virus 1 Not Detected (Not Detect); Parainfluenza Virus 2 Not Detected (Not Detect); Parainfluenza Virus 3 Not Detected (Not Detect); Parainfluenza Virus 4 Not Detected (Not Detect); Respiratory Syncytial Virus Not Detected (Not Detect); SARS-CoV-2 Not Detected (Not Detect)
[2021-11-10] MEDS: Piperacillin/Tazobactam 3.375 GM in 0.9 % Sodium Chloride Mini Bag 100 ML IVPB SCH ×3 (15:19→23:44)
[2021-11-10] MEDS: lisinopriL 20 MG TABLET PO SCH (17:18)
[2021-11-10] MEDS: Insulin DETEMIR 100 UNIT/ML X5UNITS SUBQ SCH (20:08)
[2021-11-10] MEDS: QUEtiapine Fumarate 25 MG TABLET PO SCH (20:08)
[2021-11-11 03:27] LABS: Bilirubin,Urine Negative (Negative); Blood,Urine Negative (Negative); Clarity,Urine Clear (Clear); Color,Urine Light-Yellow (Yellow); Glucose,Urine (UA) 30 mg/dL (Normal); Ketones,Urine Negative (Negative); Leukocyte Esterase,Urine Negative (Negative); Nitrite,Urine Negative (Negative); Protein,Urine 30 mg/dL (Neg-Trace); RBC,Urine 0-3 per hpf (0-3); Specific Gravity,Urine 1.028 (1.010-1.025); Urobilinogen,Urine Normal (Normal); WBC,Urine 0-3 per hpf (0-3)
[2021-11-11 04:32] LABS: Basophils % 0.4 %; Eosinophils # 0.1 K/mcL (0.0-0.6); Eosinophils % 0.5 %; Hematocrit 25.9 % (37.5-50.1); Hemoglobin 8.6 g/dL (12.9-16.9); Immature Granulocytes % 2.6 % (0-4); Lymphocytes % 8.6 %; Mean Corpuscular HGB Conc 33.2 g/dL (31.6-35.5); Mean Corpuscular Hemoglobin 29.6 pg (28.0-33.3); Mean Platelet Volume 11.3 fL (9.4-12.4); Monocytes # 0.6 K/mcL (0.0-1.3); Monocytes % 5.4 %; Neutrophils # 9.4 K/mcL (1.6-8.9); Platelet Count 545 K/mcL (140-400); Red Blood Count 2.91 M/mcL (4.19-5.50); Red Cell Distribution Width 14.4 % (11.5-14.5); Segmented Neutrophils % 82.5 %; White Blood Count 11.3 K/mcL (4.3-11.1)
[2021-11-11 04:54] LABS: BUN/Creatinine Ratio 27 (6-26); Blood Urea Nitrogen 38 mg/dL (8-23); Calcium 8.5 mg/dL (8.6-10.3); Carbon Dioxide 26 mEq/L (23-29); Chloride 102 mEq/L (98-107); Glucose 172 mg/dL (70-105); Osmolality,Calculated 297 (280-300); Potassium 3.6 mEq/L (3.5-5.1); Sodium 137 mEq/L (136-145); eGFR For African Americans > 60 (> 60); eGFR For Non-African Americans 51 (> 60)
[2021-11-11] MEDS: *HR* Heparin 5,000 UNIT/ML VIAL SQ SCH ×2 (05:06→18:40)
[2021-11-11] MEDS: Piperacillin/Tazobactam 3.375 GM in 0.9 % Sodium Chloride Mini Bag 100 ML IVPB SCH ×2 (09:01→16:17)
[2021-11-11] MEDS: Insulin LISPRO 300 UNITS/3 ML VIAL SUBQ SCH ×4 (09:02→20:42)
[2021-11-11] MEDS: Vancomycin 1,500 MG/265 ML IV.SOLN IVPB SCH (09:16)
[2021-11-11] MEDS ORDERED: Lidocaine Viscous Oral Soln 15 ML SOLUTION MM PRN (09:40)
[2021-11-11] MEDS ORDERED: 0.9 % Sodium Chloride 500 ML IVC ONE (09:40)
[2021-11-11] MEDS: *HR* Midazolam HCl 5 MG/5 ML VIAL IVP PRN ×3 (10:10→10:20)
[2021-11-11] MEDS: *HR* FentaNYL (PF) 100 MCG/2 ML VIAL IVP PRN ×3 (10:10→10:20)
[2021-11-11] MEDS: Aspirin Enteric Coated 81 MG Tablet PO SCH (12:37)
[2021-11-11] MEDS: hydroCHLOROthiazide 25 MG TABLET PO SCH (12:37)
[2021-11-11] MEDS: gemfibroziL 600 MG TABLET PO SCH ×2 (12:38→20:42)
[2021-11-11] MEDS: Pregabalin 50 MG CAPSULE PO SCH ×3 (12:38→20:42)
[2021-11-11] MEDS: amLODIPine 5 MG TABLET PO SCH ×2 (12:38→20:42)
[2021-11-11] MEDS: Metoprolol 100 MG TABLET PO SCH ×2 (12:38→20:42)
[2021-11-11] MEDS: lisinopriL 20 MG TABLET PO SCH (18:40)
[2021-11-11] MEDS: QUEtiapine Fumarate 25 MG TABLET PO SCH (20:42)
[2021-11-11] MEDS: Insulin DETEMIR 100 UNIT/ML X5UNITS SUBQ SCH (20:42)
[2021-11-12 04:46] LABS: BUN/Creatinine Ratio 23 (6-26); Blood Urea Nitrogen 31 mg/dL (8-23); Calcium 8.7 mg/dL (8.6-10.3); Carbon Dioxide 28 mEq/L (23-29); Chloride 101 mEq/L (98-107); Glucose 219 mg/dL (70-105); Osmolality,Calculated 297 (280-300); Potassium 3.5 mEq/L (3.5-5.1); Sodium 137 mEq/L (136-145); eGFR For African Americans > 60 (> 60); eGFR For Non-African Americans 52 (> 60)
[2021-11-12 04:54] LABS: Basophils % 0.2 %; Eosinophils # 0.1 K/mcL (0.0-0.6); Hematocrit 28.5 % (37.5-50.1); Hemoglobin 9.2 g/dL (12.9-16.9); Immature Granulocytes % 2.2 % (0-4); Lymphocytes # 0.9 K/mcL (0.6-4.6); Lymphocytes % 6.9 %; Mean Corpuscular HGB Conc 32.3 g/dL (31.6-35.5); Mean Corpuscular Hemoglobin 28.8 pg (28.0-33.3); Mean Corpuscular Volume 89.3 fL (83.0-100.0); Mean Platelet Volume 11.1 fL (9.4-12.4); Monocytes # 0.6 K/mcL (0.0-1.3); Monocytes % 4.4 %; Neutrophils # 11.1 K/mcL (1.6-8.9); Platelet Count 633 K/mcL (140-400); Red Blood Count 3.19 M/mcL (4.19-5.50); Red Cell Distribution Width 14.2 % (11.5-14.5); Segmented Neutrophils % 85.3 %
[2021-11-12] MEDS: *HR* Heparin 5,000 UNIT/ML VIAL SQ SCH ×2 (05:18→18:38)
[2021-11-12] MEDS: Insulin LISPRO 300 UNITS/3 ML VIAL SUBQ SCH ×4 (08:11→20:29)
[2021-11-12] MEDS: Aspirin Enteric Coated 81 MG Tablet PO SCH (08:13)
[2021-11-12] MEDS: Pregabalin 50 MG CAPSULE PO SCH ×3 (08:13→20:23)
[2021-11-12] MEDS: Metoprolol 100 MG TABLET PO SCH ×3 (08:13→20:23)
[2021-11-12] MEDS: gemfibroziL 600 MG TABLET PO SCH ×2 (08:13→20:26)
[2021-11-12] MEDS: amLODIPine 5 MG TABLET PO SCH ×2 (08:13→20:23)
[2021-11-12] MEDS: hydroCHLOROthiazide 25 MG TABLET PO SCH (08:13)
[2021-11-12] MEDS: Vancomycin 1,500 MG/265 ML IV.SOLN IVPB SCH (09:52)
[2021-11-12] MEDS ORDERED: *HR* Succinylcholine 200 MG/10 ML VIAL IVP ONE (14:43)
[2021-11-12] MEDS ORDERED: *HR* FentaNYL (PF) 100 MCG/2 ML VIAL ONE ×2 (14:43→16:58)
[2021-11-12] MEDS ORDERED: *HR* Midazolam HCl 2 MG/2 ML VIAL ONE (14:43)
[2021-11-12] MEDS ORDERED: Lidocaine -MPF 2% 2 ML VIAL ONE (14:43)
[2021-11-12] MEDS ORDERED: Lidocaine HCL 4 ML Topical Solution (Laryng-O-Jet Kit Sterile Pak) TP ONE (14:43)
[2021-11-12] MEDS ORDERED: Ondansetron 4 MG/2 ML VIAL ONE (14:43)
[2021-11-12] MEDS ORDERED: *HR* Propofol 200 MG/20 ML VIAL IVP ONE (15:02)
[2021-11-12] MEDS ORDERED: Lidocaine 1% 0 ML ONE (15:02)
[2021-11-12] MEDS ORDERED: *HR* FentaNYL (PF) 100 MCG/2 ML VIAL IVP PRN (15:21)
[2021-11-12] MEDS ORDERED: EPHEDrine 50 MG/ML VIAL ONE (16:55)
[2021-11-12] MEDS: lisinopriL 20 MG TABLET PO SCH (18:40)
[2021-11-12] MEDS: QUEtiapine Fumarate 25 MG TABLET PO SCH (20:23)
[2021-11-12] MEDS: Insulin DETEMIR 100 UNIT/ML X5UNITS SUBQ SCH (20:32)
[2021-11-13] MEDS: *HR* Heparin 5,000 UNIT/ML VIAL SQ SCH ×2 (06:27→17:14)
[2021-11-13 07:00] LABS: Basophils % 0.2 %; Eosinophils % 0.1 %; Hemoglobin 8.4 g/dL (12.9-16.9); Immature Granulocytes % 1.6 % (0-4); Lymphocytes # 0.5 K/mcL (0.6-4.6); Lymphocytes % 4.5 %; Mean Corpuscular HGB Conc 32.3 g/dL (31.6-35.5); Mean Corpuscular Hemoglobin 29.2 pg (28.0-33.3); Mean Corpuscular Volume 90.3 fL (83.0-100.0); Mean Platelet Volume 10.8 fL (9.4-12.4); Monocytes # 0.5 K/mcL (0.0-1.3); Monocytes % 3.9 %; Neutrophils # 10.7 K/mcL (1.6-8.9); Platelet Count 555 K/mcL (140-400); Red Blood Count 2.88 M/mcL (4.19-5.50); Red Cell Distribution Width 14.1 % (11.5-14.5); Segmented Neutrophils % 89.7 %; White Blood Count 11.9 K/mcL (4.3-11.1)
[2021-11-13 07:40] LABS: BUN/Creatinine Ratio 23 (6-26); Blood Urea Nitrogen 27 mg/dL (8-23); Calcium 8.6 mg/dL (8.6-10.3); Carbon Dioxide 23 mEq/L (23-29); Chloride 103 mEq/L (98-107); Glucose 238 mg/dL (70-105); Osmolality,Calculated 295 (280-300); Potassium 4.4 mEq/L (3.5-5.1); Sodium 136 mEq/L (136-145); eGFR For African Americans > 60 (> 60); eGFR For Non-African Americans > 60 (> 60)
[2021-11-13] MEDS: amLODIPine 5 MG TABLET PO SCH ×2 (07:46→20:14)
[2021-11-13] MEDS: Aspirin Enteric Coated 81 MG Tablet PO SCH (07:46)
[2021-11-13] MEDS: Metoprolol 100 MG TABLET PO SCH ×2 (07:46→20:14)
[2021-11-13] MEDS: Insulin LISPRO 300 UNITS/3 ML VIAL SUBQ SCH ×4 (07:46→20:14)
[2021-11-13] MEDS: hydroCHLOROthiazide 25 MG TABLET PO SCH (07:46)
[2021-11-13] MEDS: Pregabalin 50 MG CAPSULE PO SCH ×3 (07:46→20:15)
[2021-11-13] MEDS: gemfibroziL 600 MG TABLET PO SCH ×2 (07:47→20:14)
[2021-11-13] MEDS: Vancomycin 1,500 MG/265 ML IV.SOLN IVPB SCH (07:57)
[2021-11-13] MEDS: lisinopriL 20 MG TABLET PO SCH (17:14)
[2021-11-13] MEDS: QUEtiapine Fumarate 25 MG TABLET PO SCH (20:14)
[2021-11-13] MEDS: Insulin DETEMIR 100 UNIT/ML X5UNITS SUBQ SCH (20:15)
[2021-11-14] MEDS: *HR* Heparin 5,000 UNIT/ML VIAL SQ SCH ×2 (06:14→18:22)
[2021-11-14] MEDS: Insulin LISPRO 300 UNITS/3 ML VIAL SUBQ SCH ×4 (08:13→21:47)
[2021-11-14] MEDS: Aspirin Enteric Coated 81 MG Tablet PO SCH (08:16)
[2021-11-14] MEDS: Pregabalin 50 MG CAPSULE PO SCH ×3 (08:16→21:47)
[2021-11-14] MEDS: amLODIPine 5 MG TABLET PO SCH ×2 (08:16→21:46)
[2021-11-14] MEDS: hydroCHLOROthiazide 25 MG TABLET PO SCH (08:16)
[2021-11-14] MEDS: gemfibroziL 600 MG TABLET PO SCH ×2 (08:21→21:46)
[2021-11-14] MEDS: Metoprolol 100 MG TABLET PO SCH ×2 (08:22→21:47)
[2021-11-14 08:45] LABS: Basophils % 0.3 %; Eosinophils # 0.1 K/mcL (0.0-0.6); Eosinophils % 1.6 %; Hematocrit 24.6 % (37.5-50.1); Immature Granulocytes % 2.3 % (0-4); Lymphocytes # 0.7 K/mcL (0.6-4.6); Lymphocytes % 8.5 %; Mean Corpuscular HGB Conc 32.5 g/dL (31.6-35.5); Mean Corpuscular Hemoglobin 29.2 pg (28.0-33.3); Mean Corpuscular Volume 89.8 fL (83.0-100.0); Mean Platelet Volume 11.4 fL (9.4-12.4); Monocytes # 0.6 K/mcL (0.0-1.3); Monocytes % 7.5 %; Neutrophils # 6.3 K/mcL (1.6-8.9); Platelet Count 579 K/mcL (140-400); Red Blood Count 2.74 M/mcL (4.19-5.50); Red Cell Distribution Width 14.3 % (11.5-14.5); Segmented Neutrophils % 79.8 %; White Blood Count 7.9 K/mcL (4.3-11.1)
[2021-11-14 09:34] LABS: % Iron Saturation 11 % (20-55); Alanine Aminotransferase 9 Units/L (7-52); Albumin 2.5 g/dL (3.5-5.7); Albumin/Globulin Ratio 0.7 (1.1-2.2); Alkaline Phosphatase 62 Units/L (34-104); Aspartate Amino Transferase 14 Units/L (13-39); BUN/Creatinine Ratio 20 (6-26); Bilirubin,Direct 0.1 mg/dL (0.0-0.2); Bilirubin,Indirect 0.2 mg/dL (0.0-1.0); Bilirubin,Total 0.3 mg/dL (0.3-1.0); Blood Urea Nitrogen 28 mg/dL (8-23); Calcium 8.3 mg/dL (8.6-10.3); Carbon Dioxide 27 mEq/L (23-29); Chloride 102 mEq/L (98-107); Globulin 3.6 g/dL (2.4-3.5); Glucose 161 mg/dL (70-105); Iron 21 mcg/dL (65-175); Magnesium 1.6 mg/dL (1.6-2.6); Osmolality,Calculated 291 (280-300); Potassium 3.5 mEq/L (3.5-5.1); Sodium 136 mEq/L (136-145); Total Protein 6.1 g/dL (6.4-8.9); Transferrin 139 mg/dL (203-362); eGFR For African Americans > 60 (> 60); eGFR For Non-African Americans 50 (> 60)
[2021-11-14] MEDS: Vancomycin 1,500 MG/265 ML IV.SOLN IVPB SCH (10:56)
[2021-11-14 11:00] LABS: Ferritin 608 ng/mL (20-250)
[2021-11-14 11:34] LABS: Folate 6.3 ng/mL (3.0-16.0)
[2021-11-14] MEDS ORDERED: Cyanocobalamin (B-12) 1,000 MCG/ML VIAL SQ ONE (17:32)
[2021-11-14] MEDS: Insulin DETEMIR 100 UNIT/ML X5UNITS SUBQ SCH (21:46)
[2021-11-14] MEDS: QUEtiapine Fumarate 25 MG TABLET PO SCH (21:46)
[2021-11-15 04:09] LABS: Basophils % 0.5 %; Eosinophils # 0.2 K/mcL (0.0-0.6); Eosinophils % 2.2 %; Hematocrit 22.3 % (37.5-50.1); Hemoglobin 7.2 g/dL (12.9-16.9); Immature Granulocytes % 2.1 % (0-4); Lymphocytes # 1.1 K/mcL (0.6-4.6); Lymphocytes % 12.8 %; Mean Corpuscular HGB Conc 32.3 g/dL (31.6-35.5); Mean Corpuscular Volume 89.9 fL (83.0-100.0); Mean Platelet Volume 10.8 fL (9.4-12.4); Monocytes # 0.6 K/mcL (0.0-1.3); Monocytes % 7.5 %; Neutrophils # 6.3 K/mcL (1.6-8.9); Platelet Count 684 K/mcL (140-400); Red Blood Count 2.48 M/mcL (4.19-5.50); Red Cell Distribution Width 13.9 % (11.5-14.5); Segmented Neutrophils % 74.9 %; White Blood Count 8.5 K/mcL (4.3-11.1)
[2021-11-15 04:26] LABS: Calcium 8.7 mg/dL (8.6-10.3); Magnesium 1.7 mg/dL (1.6-2.6); Potassium 3.8 mEq/L (3.5-5.1)
[2021-11-15] MEDS: *HR* Heparin 5,000 UNIT/ML VIAL SQ SCH ×2 (06:24→18:26)
[2021-11-15] MEDS: Aspirin Enteric Coated 81 MG Tablet PO SCH (08:04)
[2021-11-15] MEDS: gemfibroziL 600 MG TABLET PO SCH ×2 (08:04→20:17)
[2021-11-15] MEDS: Vitamin B Complex/Vit C/Vit E 1 EACH TABLET PO SCH (08:04)
[2021-11-15] MEDS: hydroCHLOROthiazide 25 MG TABLET PO SCH (08:04)
[2021-11-15] MEDS: amLODIPine 5 MG TABLET PO SCH ×2 (08:04→20:17)
[2021-11-15] MEDS: Metoprolol 100 MG TABLET PO SCH ×2 (08:04→20:17)
[2021-11-15] MEDS: Pregabalin 50 MG CAPSULE PO SCH ×3 (08:05→20:17)
[2021-11-15] MEDS: Vancomycin 1,500 MG/265 ML IV.SOLN IVPB SCH (08:05)
[2021-11-15] MEDS: Insulin LISPRO 300 UNITS/3 ML VIAL SUBQ SCH ×4 (08:07→20:33)
[2021-11-15] MEDS: QUEtiapine Fumarate 25 MG TABLET PO SCH (20:17)
[2021-11-15] MEDS: Insulin DETEMIR 100 UNIT/ML X5UNITS SUBQ SCH (20:33)
[2021-11-16 04:25] LABS: Basophils % 0.3 %; Eosinophils # 0.1 K/mcL (0.0-0.6); Eosinophils % 1.7 %; Hematocrit 24.6 % (37.5-50.1); Hemoglobin 7.9 g/dL (12.9-16.9); Immature Granulocytes % 1.8 % (0-4); Lymphocytes # 0.7 K/mcL (0.6-4.6); Lymphocytes % 10.3 %; Mean Corpuscular HGB Conc 32.1 g/dL (31.6-35.5); Mean Corpuscular Hemoglobin 28.7 pg (28.0-33.3); Mean Corpuscular Volume 89.5 fL (83.0-100.0); Mean Platelet Volume 10.6 fL (9.4-12.4); Monocytes # 0.6 K/mcL (0.0-1.3); Monocytes % 8.3 %; Neutrophils # 5.5 K/mcL (1.6-8.9); Platelet Count 519 K/mcL (140-400); Red Blood Count 2.75 M/mcL (4.19-5.50); Red Cell Distribution Width 14.1 % (11.5-14.5); Segmented Neutrophils % 77.6 %; White Blood Count 7.1 K/mcL (4.3-11.1)
[2021-11-16 04:40] LABS: Calcium 8.3 mg/dL (8.6-10.3); Magnesium 1.6 mg/dL (1.6-2.6); Potassium 3.8 mEq/L (3.5-5.1)
[2021-11-16] MEDS: *HR* Heparin 5,000 UNIT/ML VIAL SQ SCH ×2 (05:51→17:49)
[2021-11-16] MEDS: Metoprolol 100 MG TABLET PO SCH ×2 (08:05→21:25)
[2021-11-16] MEDS: gemfibroziL 600 MG TABLET PO SCH ×2 (08:05→21:25)
[2021-11-16] MEDS: amLODIPine 5 MG TABLET PO SCH ×2 (08:05→21:25)
[2021-11-16] MEDS: hydroCHLOROthiazide 25 MG TABLET PO SCH (08:06)
[2021-11-16] MEDS: Pregabalin 50 MG CAPSULE PO SCH ×3 (08:06→21:25)
[2021-11-16] MEDS: Vancomycin 1,500 MG/265 ML IV.SOLN IVPB SCH (08:06)
[2021-11-16] MEDS: Aspirin Enteric Coated 81 MG Tablet PO SCH (08:06)
[2021-11-16] MEDS: Vitamin B Complex/Vit C/Vit E 1 EACH TABLET PO SCH (08:06)
[2021-11-16] MEDS: Insulin LISPRO 300 UNITS/3 ML VIAL SUBQ SCH ×5 (08:08→21:27)
[2021-11-16] MEDS: QUEtiapine Fumarate 25 MG TABLET PO SCH (21:25)
[2021-11-16] MEDS: Insulin DETEMIR 100 UNIT/ML X5UNITS SUBQ SCH (21:27)
[2021-11-17 05:23] LABS: Calcium 8.6 mg/dL (8.6-10.3); Magnesium 1.5 mg/dL (1.6-2.6); Potassium 3.8 mEq/L (3.5-5.1)
[2021-11-17 05:39] LABS: Basophils % 0.3 %; Eosinophils # 0.2 K/mcL (0.0-0.6); Eosinophils % 1.5 %; Hematocrit 25.5 % (37.5-50.1); Hemoglobin 8.2 g/dL (12.9-16.9); Immature Granulocytes % 1.6 % (0-4); Lymphocytes # 0.8 K/mcL (0.6-4.6); Lymphocytes % 7.9 %; Mean Corpuscular HGB Conc 32.2 g/dL (31.6-35.5); Mean Corpuscular Hemoglobin 28.7 pg (28.0-33.3); Mean Corpuscular Volume 89.2 fL (83.0-100.0); Mean Platelet Volume 10.8 fL (9.4-12.4); Monocytes # 0.7 K/mcL (0.0-1.3); Monocytes % 6.8 %; Neutrophils # 8.3 K/mcL (1.6-8.9); Platelet Count 569 K/mcL (140-400); Red Blood Count 2.86 M/mcL (4.19-5.50); Red Cell Distribution Width 13.8 % (11.5-14.5); Segmented Neutrophils % 81.9 %; White Blood Count 10.2 K/mcL (4.3-11.1)
[2021-11-17] MEDS: *HR* Heparin 5,000 UNIT/ML VIAL SQ SCH ×2 (06:20→18:10)
[2021-11-17] MEDS: Insulin DETEMIR 100 UNIT/ML X5UNITS SUBQ SCH ×2 (08:05→20:52)
[2021-11-17] MEDS: Vitamin B Complex/Vit C/Vit E 1 EACH TABLET PO SCH (08:05)
[2021-11-17] MEDS: Metoprolol 100 MG TABLET PO SCH ×2 (08:05→20:51)
[2021-11-17] MEDS: Aspirin Enteric Coated 81 MG Tablet PO SCH (08:05)
[2021-11-17] MEDS: amLODIPine 5 MG TABLET PO SCH ×2 (08:05→20:51)
[2021-11-17] MEDS: Pregabalin 50 MG CAPSULE PO SCH ×3 (08:06→20:51)
[2021-11-17] MEDS: hydroCHLOROthiazide 25 MG TABLET PO SCH (08:06)
[2021-11-17] MEDS: gemfibroziL 600 MG TABLET PO SCH ×2 (08:06→20:51)
[2021-11-17] MEDS: Insulin LISPRO 300 UNITS/3 ML VIAL SUBQ SCH ×4 (08:09→20:52)
[2021-11-17] MEDS: Vancomycin 1,500 MG/265 ML IV.SOLN IVPB SCH (12:11)
[2021-11-17] MEDS: QUEtiapine Fumarate 25 MG TABLET PO SCH (20:51)
[2021-11-18 04:32] LABS: Basophils % 0.5 %; Eosinophils # 0.2 K/mcL (0.0-0.6); Eosinophils % 1.7 %; Hematocrit 24.8 % (37.5-50.1); Immature Granulocytes % 1.4 % (0-4); Lymphocytes # 0.9 K/mcL (0.6-4.6); Lymphocytes % 10.4 %; Mean Corpuscular HGB Conc 32.3 g/dL (31.6-35.5); Mean Corpuscular Hemoglobin 28.5 pg (28.0-33.3); Mean Corpuscular Volume 88.3 fL (83.0-100.0); Mean Platelet Volume 10.6 fL (9.4-12.4); Monocytes # 0.7 K/mcL (0.0-1.3); Monocytes % 7.8 %; Neutrophils # 6.9 K/mcL (1.6-8.9); Platelet Count 582 K/mcL (140-400); Red Blood Count 2.81 M/mcL (4.19-5.50); Red Cell Distribution Width 13.6 % (11.5-14.5); Segmented Neutrophils % 78.2 %; White Blood Count 8.8 K/mcL (4.3-11.1)
[2021-11-18 05:31] LABS: Calcium 8.7 mg/dL (8.6-10.3); Magnesium 1.8 mg/dL (1.6-2.6); Potassium 3.6 mEq/L (3.5-5.1)
[2021-11-18] MEDS: *HR* Heparin 5,000 UNIT/ML VIAL SQ SCH ×2 (06:06→17:23)
[2021-11-18] MEDS: Metoprolol 100 MG TABLET PO SCH ×2 (08:47→21:00)
[2021-11-18] MEDS: Insulin DETEMIR 100 UNIT/ML X5UNITS SUBQ SCH ×2 (08:47→20:59)
[2021-11-18] MEDS: gemfibroziL 600 MG TABLET PO SCH ×2 (08:47→21:00)
[2021-11-18] MEDS: hydroCHLOROthiazide 25 MG TABLET PO SCH (08:47)
[2021-11-18] MEDS: amLODIPine 5 MG TABLET PO SCH ×2 (08:47→21:00)
[2021-11-18] MEDS: Vancomycin 1,500 MG/265 ML IV.SOLN IVPB SCH (08:47)
[2021-11-18] MEDS: Aspirin Enteric Coated 81 MG Tablet PO SCH (08:47)
[2021-11-18] MEDS: Pregabalin 50 MG CAPSULE PO SCH ×3 (08:47→21:00)
[2021-11-18] MEDS: Vitamin B Complex/Vit C/Vit E 1 EACH TABLET PO SCH (08:48)
[2021-11-18] MEDS: Insulin LISPRO 300 UNITS/3 ML VIAL SUBQ SCH ×4 (08:51→21:00)
[2021-11-18] MEDS: Acetaminophen 325 MG TABLET PO PRN ×2 (17:34→23:55)
[2021-11-18] MEDS: QUEtiapine Fumarate 25 MG TABLET PO SCH (21:00)
[2021-11-19 04:43] LABS: Basophils # 0.1 K/mcL (0.0-0.2); Basophils % 0.5 %; Eosinophils # 0.1 K/mcL (0.0-0.6); Eosinophils % 1.3 %; Hematocrit 25.9 % (37.5-50.1); Hemoglobin 8.2 g/dL (12.9-16.9); Immature Granulocytes % 0.9 % (0-4); Lymphocytes # 0.9 K/mcL (0.6-4.6); Lymphocytes % 8.2 %; Mean Corpuscular HGB Conc 31.7 g/dL (31.6-35.5); Mean Corpuscular Hemoglobin 28.1 pg (28.0-33.3); Mean Corpuscular Volume 88.7 fL (83.0-100.0); Mean Platelet Volume 10.6 fL (9.4-12.4); Monocytes # 0.8 K/mcL (0.0-1.3); Monocytes % 7.7 %; Neutrophils # 8.6 K/mcL (1.6-8.9); Platelet Count 601 K/mcL (140-400); Red Blood Count 2.92 M/mcL (4.19-5.50); Red Cell Distribution Width 13.7 % (11.5-14.5); Segmented Neutrophils % 81.4 %; White Blood Count 10.6 K/mcL (4.3-11.1)
[2021-11-19] MEDS: *HR* Heparin 5,000 UNIT/ML VIAL SQ SCH ×2 (05:27→17:18)
[2021-11-19 05:34] LABS: BUN/Creatinine Ratio 14 (6-26); Blood Urea Nitrogen 20 mg/dL (8-23); Calcium 9.2 mg/dL (8.6-10.3); Carbon Dioxide 29 mEq/L (23-29); Chloride 100 mEq/L (98-107); Glucose 116 mg/dL (70-105); Magnesium 1.8 mg/dL (1.6-2.6); Osmolality,Calculated 288 (280-300); Potassium 3.7 mEq/L (3.5-5.1); Sodium 137 mEq/L (136-145); eGFR For African Americans > 60 (> 60); eGFR For Non-African Americans 51 (> 60)
[2021-11-19] MEDS: amLODIPine 5 MG TABLET PO SCH ×2 (08:30→20:50)
[2021-11-19] MEDS: Insulin DETEMIR 100 UNIT/ML X5UNITS SUBQ SCH ×2 (08:30→20:51)
[2021-11-19] MEDS: Vancomycin 1,500 MG/265 ML IV.SOLN IVPB SCH (08:30)
[2021-11-19] MEDS: hydroCHLOROthiazide 25 MG TABLET PO SCH (08:30)
[2021-11-19] MEDS: Metoprolol 100 MG TABLET PO SCH ×2 (08:30→20:50)
[2021-11-19] MEDS: gemfibroziL 600 MG TABLET PO SCH ×2 (08:30→20:50)
[2021-11-19] MEDS: Pregabalin 50 MG CAPSULE PO SCH ×3 (08:30→20:51)
[2021-11-19] MEDS: Vitamin B Complex/Vit C/Vit E 1 EACH TABLET PO SCH (08:30)
[2021-11-19] MEDS: Aspirin Enteric Coated 81 MG Tablet PO SCH (08:30)
[2021-11-19] MEDS: Insulin LISPRO 300 UNITS/3 ML VIAL SUBQ SCH ×4 (08:31→20:51)
[2021-11-19] MEDS: 0.9 % Sodium Chloride 1,000 ML IVC SCH (14:44)
[2021-11-19 15:28] LABS: Source of Body Fluid Left knee
[2021-11-19 17:59] LABS: Appearance of Body Fluid Cloudy (Clear); Volume of Body Fluid 2 mL
[2021-11-19] MEDS: QUEtiapine Fumarate 25 MG TABLET PO SCH (20:50)
[2021-11-20] MEDS: 0.9 % Sodium Chloride 1,000 ML IVC SCH (01:45)
[2021-11-20] MEDS: *HR* Heparin 5,000 UNIT/ML VIAL SQ SCH (04:30)
[2021-11-20 05:15] LABS: Basophils % 0.2 %; Eosinophils # 0.1 K/mcL (0.0-0.6); Eosinophils % 0.8 %; Hemoglobin 7.9 g/dL (12.9-16.9); Immature Granulocytes % 0.8 % (0-4); Lymphocytes # 0.6 K/mcL (0.6-4.6); Lymphocytes % 4.4 %; Mean Corpuscular HGB Conc 32.9 g/dL (31.6-35.5); Mean Corpuscular Hemoglobin 28.7 pg (28.0-33.3); Mean Corpuscular Volume 87.3 fL (83.0-100.0); Mean Platelet Volume 10.6 fL (9.4-12.4); Monocytes # 0.8 K/mcL (0.0-1.3); Monocytes % 6.4 %; Platelet Count 584 K/mcL (140-400); Red Blood Count 2.75 M/mcL (4.19-5.50); Red Cell Distribution Width 13.8 % (11.5-14.5); Segmented Neutrophils % 87.4 %; White Blood Count 12.6 K/mcL (4.3-11.1)
[2021-11-20 05:16] LABS: Calcium 8.4 mg/dL (8.6-10.3); Magnesium 1.6 mg/dL (1.6-2.6); Potassium 3.9 mEq/L (3.5-5.1)
[2021-11-20] MEDS: Aspirin Enteric Coated 81 MG Tablet PO SCH (09:00)
[2021-11-20] MEDS: Metoprolol 100 MG TABLET PO SCH ×2 (09:00→21:36)
[2021-11-20] MEDS: amLODIPine 5 MG TABLET PO SCH ×2 (09:01→21:36)
[2021-11-20] MEDS: Vitamin B Complex/Vit C/Vit E 1 EACH TABLET PO SCH (09:01)
[2021-11-20] MEDS: Apixaban 5 MG TABLET PO SCH ×2 (09:01→21:36)
[2021-11-20] MEDS: Pregabalin 50 MG CAPSULE PO SCH ×3 (09:04→21:36)
[2021-11-20] MEDS: Insulin DETEMIR 100 UNIT/ML X5UNITS SUBQ SCH ×2 (09:27→21:36)
[2021-11-20] MEDS: gemfibroziL 600 MG TABLET PO SCH ×2 (09:34→21:36)
[2021-11-20] MEDS: Insulin LISPRO 300 UNITS/3 ML VIAL SUBQ SCH ×3 (11:28→11:57)
[2021-11-20 12:08] LABS: CK Total (Ck Isoenzymes) 8 U/L (39-308)
[2021-11-20] MEDS: Vancomycin 1,500 MG/265 ML IV.SOLN IVPB SCH (12:29)
[2021-11-20] MEDS: QUEtiapine Fumarate 25 MG TABLET PO SCH (21:36)
[2021-11-21 07:03] LABS: Hematocrit 23.5 % (37.5-50.1); Hemoglobin 7.6 g/dL (12.9-16.9); Mean Corpuscular HGB Conc 32.3 g/dL (31.6-35.5); Mean Corpuscular Hemoglobin 28.6 pg (28.0-33.3); Mean Corpuscular Volume 88.3 fL (83.0-100.0); Mean Platelet Volume 10.4 fL (9.4-12.4); Platelet Count 598 K/mcL (140-400); Red Blood Count 2.66 M/mcL (4.19-5.50); Red Cell Distribution Width 13.7 % (11.5-14.5); White Blood Count 8.9 K/mcL (4.3-11.1)
[2021-11-21 07:04] LABS: Basophils # 0.1 K/mcL (0.0-0.2); Basophils % 0.6 %; Eosinophils # 0.2 K/mcL (0.0-0.6); Immature Granulocytes % 0.8 % (0-4); Lymphocytes # 0.9 K/mcL (0.6-4.6); Lymphocytes % 10.3 %; Monocytes # 0.7 K/mcL (0.0-1.3); Monocytes % 7.3 %; Neutrophils # 7.1 K/mcL (1.6-8.9)
[2021-11-21 07:25] LABS: BUN/Creatinine Ratio 15 (6-26); Blood Urea Nitrogen 20 mg/dL (8-23); Calcium 8.5 mg/dL (8.6-10.3); Carbon Dioxide 26 mEq/L (23-29); Chloride 100 mEq/L (98-107); Glucose 181 mg/dL (70-105); Magnesium 1.7 mg/dL (1.6-2.6); Osmolality,Calculated 285 (280-300); Potassium 3.9 mEq/L (3.5-5.1); Sodium 134 mEq/L (136-145); eGFR For African Americans > 60 (> 60); eGFR For Non-African Americans 53 (> 60)
[2021-11-21] MEDS: Vitamin B Complex/Vit C/Vit E 1 EACH TABLET PO SCH (08:09)
[2021-11-21] MEDS: Aspirin Enteric Coated 81 MG Tablet PO SCH (08:10)
[2021-11-21] MEDS: Pregabalin 50 MG CAPSULE PO SCH ×3 (08:10→21:31)
[2021-11-21] MEDS: amLODIPine 5 MG TABLET PO SCH ×2 (08:10→21:32)
[2021-11-21] MEDS: Apixaban 5 MG TABLET PO SCH ×2 (08:10→21:31)
[2021-11-21] MEDS: Metoprolol 100 MG TABLET PO SCH ×2 (08:10→21:32)
[2021-11-21] MEDS: Insulin DETEMIR 100 UNIT/ML X5UNITS SUBQ SCH ×2 (08:14→21:32)
[2021-11-21] MEDS: Insulin LISPRO 300 UNITS/3 ML VIAL SUBQ SCH ×5 (08:14→21:32)
[2021-11-21] MEDS: gemfibroziL 600 MG TABLET PO SCH ×2 (08:33→21:31)
[2021-11-21] MEDS: Vancomycin 1,500 MG/265 ML IV.SOLN IVPB SCH (12:22)
[2021-11-21] MEDS: QUEtiapine Fumarate 25 MG TABLET PO SCH (21:31)
[2021-11-22 04:26] LABS: Basophils # 0.1 K/mcL (0.0-0.2); Basophils % 0.5 %; Eosinophils # 0.1 K/mcL (0.0-0.6); Hematocrit 25.1 % (37.5-50.1); Hemoglobin 8.2 g/dL (12.9-16.9); Immature Granulocytes % 0.8 % (0-4); Lymphocytes # 0.7 K/mcL (0.6-4.6); Lymphocytes % 6.6 %; Mean Corpuscular HGB Conc 32.7 g/dL (31.6-35.5); Mean Corpuscular Hemoglobin 28.9 pg (28.0-33.3); Mean Corpuscular Volume 88.4 fL (83.0-100.0); Mean Platelet Volume 10.5 fL (9.4-12.4); Monocytes # 0.7 K/mcL (0.0-1.3); Monocytes % 7.3 %; Neutrophils # 8.3 K/mcL (1.6-8.9); Platelet Count 581 K/mcL (140-400); Red Blood Count 2.84 M/mcL (4.19-5.50); Red Cell Distribution Width 13.6 % (11.5-14.5); Segmented Neutrophils % 83.8 %
[2021-11-22 04:40] LABS: Calcium 8.4 mg/dL (8.6-10.3); Potassium 4.1 mEq/L (3.5-5.1)
[2021-11-22 07:37] LABS: Source,Synovial Fluid LT KNEE
[2021-11-22] MEDS: Aspirin Enteric Coated 81 MG Tablet PO SCH (08:35)
[2021-11-22] MEDS: Insulin DETEMIR 100 UNIT/ML X5UNITS SUBQ SCH ×2 (08:36→21:41)
[2021-11-22] MEDS: amLODIPine 5 MG TABLET PO SCH ×2 (08:36→21:40)
[2021-11-22] MEDS: Apixaban 5 MG TABLET PO SCH ×2 (08:36→21:40)
[2021-11-22] MEDS: Metoprolol 100 MG TABLET PO SCH ×2 (08:36→21:40)
[2021-11-22] MEDS: Vitamin B Complex/Vit C/Vit E 1 EACH TABLET PO SCH (08:36)
[2021-11-22] MEDS: Pregabalin 50 MG CAPSULE PO SCH ×3 (08:36→21:40)
[2021-11-22] MEDS: gemfibroziL 600 MG TABLET PO SCH ×2 (08:36→21:40)
[2021-11-22] MEDS: Insulin LISPRO 300 UNITS/3 ML VIAL SUBQ SCH ×4 (08:37→21:45)
[2021-11-22 09:32] LABS: Appearance,Synovial Fluid Cloudy (Clear-Hazy); Color,Synovial Fluid Straw (Straw)
[2021-11-22 09:40] LABS: Lymphocytes,Synovial Fluid 0 %
[2021-11-22] MEDS: Vancomycin 1,250 MG/262.5 ML IV.SOLN IVPB SCH (12:07)
[2021-11-22] MEDS: QUEtiapine Fumarate 25 MG TABLET PO SCH (21:40)
[2021-11-23 04:13] LABS: Basophils # 0.1 K/mcL (0.0-0.2); Basophils % 0.6 %; Eosinophils # 0.1 K/mcL (0.0-0.6); Eosinophils % 1.5 %; Hematocrit 23.6 % (37.5-50.1); Hemoglobin 7.7 g/dL (12.9-16.9); Lymphocytes # 0.9 K/mcL (0.6-4.6); Lymphocytes % 9.6 %; Mean Corpuscular HGB Conc 32.6 g/dL (31.6-35.5); Mean Corpuscular Hemoglobin 28.4 pg (28.0-33.3); Mean Corpuscular Volume 87.1 fL (83.0-100.0); Mean Platelet Volume 10.5 fL (9.4-12.4); Monocytes # 0.8 K/mcL (0.0-1.3); Monocytes % 8.4 %; Platelet Count 570 K/mcL (140-400); Red Blood Count 2.71 M/mcL (4.19-5.50); Red Cell Distribution Width 13.6 % (11.5-14.5); Segmented Neutrophils % 78.9 %; White Blood Count 8.9 K/mcL (4.3-11.1)
[2021-11-23 04:27] LABS: BUN/Creatinine Ratio 16 (6-26); Blood Urea Nitrogen 22 mg/dL (8-23); Calcium 8.4 mg/dL (8.6-10.3); Carbon Dioxide 26 mEq/L (23-29); Chloride 98 mEq/L (98-107); Glucose 208 mg/dL (70-105); Osmolality,Calculated 283 (280-300); Sodium 132 mEq/L (136-145); eGFR For African Americans > 60 (> 60); eGFR For Non-African Americans 51 (> 60)
[2021-11-23] MEDS: amLODIPine 5 MG TABLET PO SCH ×2 (07:40→20:20)
[2021-11-23] MEDS: gemfibroziL 600 MG TABLET PO SCH ×2 (07:40→20:20)
[2021-11-23] MEDS: Vitamin B Complex/Vit C/Vit E 1 EACH TABLET PO SCH (07:40)
[2021-11-23] MEDS: Apixaban 5 MG TABLET PO SCH ×2 (07:40→20:20)
[2021-11-23] MEDS: Aspirin Enteric Coated 81 MG Tablet PO SCH (07:40)
[2021-11-23] MEDS: Insulin LISPRO 300 UNITS/3 ML VIAL SUBQ SCH ×4 (07:40→20:21)
[2021-11-23] MEDS: Pregabalin 50 MG CAPSULE PO SCH ×3 (12:33→20:20)
[2021-11-23] MEDS: Metoprolol 100 MG TABLET PO SCH ×2 (12:33→20:20)
[2021-11-23] MEDS: Insulin DETEMIR 100 UNIT/ML X5UNITS SUBQ SCH ×2 (13:02→20:21)
[2021-11-23] MEDS: Vancomycin 1,250 MG/262.5 ML IV.SOLN IVPB SCH (17:03)
[2021-11-23] MEDS: QUEtiapine Fumarate 25 MG TABLET PO SCH (20:21)
[2021-11-24 05:28] LABS: BUN/Creatinine Ratio 17 (6-26); Blood Urea Nitrogen 21 mg/dL (8-23); Calcium 8.5 mg/dL (8.6-10.3); Carbon Dioxide 27 mEq/L (23-29); Chloride 101 mEq/L (98-107); Glucose 108 mg/dL (70-105); Osmolality,Calculated 284 (280-300); Potassium 3.9 mEq/L (3.5-5.1); Sodium 135 mEq/L (136-145); eGFR For African Americans > 60 (> 60); eGFR For Non-African Americans 58 (> 60)
[2021-11-24 06:19] LABS: Basophils % 0.4 %; Eosinophils # 0.1 K/mcL (0.0-0.6); Eosinophils % 1.1 %; Hematocrit 24.4 % (37.5-50.1); Hemoglobin 7.8 g/dL (12.9-16.9); Immature Granulocytes % 0.8 % (0-4); Lymphocytes # 0.8 K/mcL (0.6-4.6); Lymphocytes % 8.8 %; Mean Corpuscular Hemoglobin 27.9 pg (28.0-33.3); Mean Corpuscular Volume 87.1 fL (83.0-100.0); Mean Platelet Volume 10.7 fL (9.4-12.4); Monocytes # 0.7 K/mcL (0.0-1.3); Monocytes % 7.5 %; Neutrophils # 7.5 K/mcL (1.6-8.9); Platelet Count 609 K/mcL (140-400); Red Cell Distribution Width 13.7 % (11.5-14.5); Segmented Neutrophils % 81.4 %; White Blood Count 9.2 K/mcL (4.3-11.1)
[2021-11-24] MEDS: Insulin LISPRO 300 UNITS/3 ML VIAL SUBQ SCH ×4 (08:16→19:49)
[2021-11-24] MEDS: Apixaban 5 MG TABLET PO SCH ×2 (08:17→19:37)
[2021-11-24] MEDS: Metoprolol 100 MG TABLET PO SCH ×2 (08:17→19:37)
[2021-11-24] MEDS: Vitamin B Complex/Vit C/Vit E 1 EACH TABLET PO SCH (08:17)
[2021-11-24] MEDS: amLODIPine 5 MG TABLET PO SCH ×2 (08:17→19:37)
[2021-11-24] MEDS: Aspirin Enteric Coated 81 MG Tablet PO SCH (08:17)
[2021-11-24] MEDS: Pregabalin 50 MG CAPSULE PO SCH ×3 (08:17→20:53)
[2021-11-24] MEDS: gemfibroziL 600 MG TABLET PO SCH ×2 (08:17→19:36)
[2021-11-24] MEDS: Insulin DETEMIR 100 UNIT/ML X5UNITS SUBQ SCH ×2 (08:19→19:49)
[2021-11-24] MEDS: Vancomycin 1,250 MG/262.5 ML IV.SOLN IVPB SCH (13:23)
[2021-11-24] MEDS: QUEtiapine Fumarate 25 MG TABLET PO SCH (19:37)
[2021-11-25 04:29] LABS: Basophils # 0.1 K/mcL (0.0-0.2); Basophils % 0.6 %; Eosinophils # 0.2 K/mcL (0.0-0.6); Eosinophils % 1.9 %; Hematocrit 23.3 % (37.5-50.1); Hemoglobin 7.5 g/dL (12.9-16.9); Immature Granulocytes % 0.8 % (0-4); Lymphocytes # 0.9 K/mcL (0.6-4.6); Lymphocytes % 10.2 %; Mean Corpuscular HGB Conc 32.2 g/dL (31.6-35.5); Mean Corpuscular Hemoglobin 27.9 pg (28.0-33.3); Mean Corpuscular Volume 86.6 fL (83.0-100.0); Monocytes # 0.7 K/mcL (0.0-1.3); Monocytes % 8.1 %; Neutrophils # 6.9 K/mcL (1.6-8.9); Platelet Count 590 K/mcL (140-400); Red Blood Count 2.69 M/mcL (4.19-5.50); Red Cell Distribution Width 13.9 % (11.5-14.5); Segmented Neutrophils % 78.4 %; White Blood Count 8.8 K/mcL (4.3-11.1)
[2021-11-25 04:49] LABS: Calcium 8.4 mg/dL (8.6-10.3)
[2021-11-25] MEDS: amLODIPine 5 MG TABLET PO SCH (10:18)
[2021-11-25] MEDS: Apixaban 5 MG TABLET PO SCH (10:18)
[2021-11-25] MEDS: Vitamin B Complex/Vit C/Vit E 1 EACH TABLET PO SCH (10:18)
[2021-11-25] MEDS: gemfibroziL 600 MG TABLET PO SCH (10:18)
[2021-11-25] MEDS: Pregabalin 50 MG CAPSULE PO SCH ×2 (10:18→16:14)
[2021-11-25] MEDS: Metoprolol 100 MG TABLET PO SCH (10:18)
[2021-11-25] MEDS: Aspirin Enteric Coated 81 MG Tablet PO SCH (10:18)
[2021-11-25] MEDS: Insulin DETEMIR 100 UNIT/ML X5UNITS SUBQ SCH (10:19)
[2021-11-25] MEDS: Insulin LISPRO 300 UNITS/3 ML VIAL SUBQ SCH ×2 (10:19→11:30)
[2021-11-25 11:31] VITALS: BP 156/78; PULSE 68; TEMP 97.8; O2SAT 96
[2021-11-25 12:22] LABS: Adenovirus Not Detected (Not Detect); Bordetella Pertussis Not Detected (Not Detect); Chlamydophila pneumoniae Not Detected (Not Detect); Coronavirus 229E Not Detected (Not Detect); Coronavirus HKU1 Not Detected (Not Detect); Coronavirus NL63 Not Detected (Not Detect); Coronavirus OC43 Not Detected (Not Detect); Human Metapneumovirus Not Detected (Not Detect); Human Rhinovirus/Enterovirus Not Detected (Not Detect); Influenza A Subtype 2009 H1 Not Detected (Not Detect); Influenza B Not Detected (Not Detect); Mycoplasma pneumoniae Not Detected (Not Detect); Parainfluenza Virus 1 Not Detected (Not Detect); Parainfluenza Virus 2 Not Detected (Not Detect); Parainfluenza Virus 3 Not Detected (Not Detect); Parainfluenza Virus 4 Not Detected (Not Detect); Respiratory Syncytial Virus Not Detected (Not Detect); SARS-CoV-2 Not Detected (Not Detect)
[2021-11-25] MEDS ORDERED: Vancomycin 1,250 MG/262.5 ML IV.SOLN IVPB SCH (14:00)
== END 2021-11-25 16:29 | DRG 853 ==
LOC: 4WAOSI 16:48 → EMEROOARM 16:48 → SUATTDRO 22:07 → 4WAOSI 23:07 → SUATTDRO 11-06 15:03 → 4WAOSI 11-08 14:18
PROVIDERS: ADMIT Internal Medicine; ATTEND Hospitalist

== ENCOUNTER 2022-02-20 12:23 | Inpatient (IN) ==
[2022-02-20 16:38] LABS: Basophils % 0.5 %; Eosinophils # 0.2 K/mcL (0.0-0.6); Eosinophils % 2.1 %; Hematocrit 30.7 % (37.5-50.1); Hemoglobin 9.9 g/dL (12.9-16.9); Immature Granulocytes % 0.4 % (0-4); Lymphocytes % 13.3 %; Mean Corpuscular HGB Conc 32.2 g/dL (31.6-35.5); Mean Corpuscular Hemoglobin 25.3 pg (28.0-33.3); Mean Corpuscular Volume 78.3 fL (83.0-100.0); Mean Platelet Volume 9.7 fL (9.4-12.4); Monocytes # 0.6 K/mcL (0.0-1.3); Monocytes % 8.5 %; Neutrophils # 5.6 K/mcL (1.6-8.9); Platelet Count 510 K/mcL (140-400); Red Blood Count 3.92 M/mcL (4.19-5.50); Red Cell Distribution Width 15.6 % (11.5-14.5); Segmented Neutrophils % 75.2 %; White Blood Count 7.5 K/mcL (4.3-11.1)
[2022-02-20 17:37] LABS: BUN/Creatinine Ratio 29 (6-26); Blood Urea Nitrogen 38 mg/dL (8-23); Calcium 9.1 mg/dL (8.6-10.3); Carbon Dioxide 26 mEq/L (23-29); Chloride 99 mEq/L (98-107); Glucose 44 mg/dL (70-105); Osmolality,Calculated 284 (280-300); Potassium 4.1 mEq/L (3.5-5.1); Sodium 134 mEq/L (136-145); eGFR For African Americans > 60 (> 60); eGFR For Non-African Americans 55 (> 60)
[2022-02-20 17:38] LABS: C-Reactive Protein 64 mg/L (Less than 10)
[2022-02-20] MEDS ORDERED: Piperacillin/Tazobactam 3.375 GM in 0.9 % Sodium Chloride Mini Bag 100 ML IVPB ONE (17:51)
[2022-02-20] MEDS ORDERED: Vancomycin 1,500 MG/265 ML IV.SOLN IVPB ONE (18:00)
[2022-02-20] MEDS ORDERED: *HR* Dextrose 50 % in Water (Vial) 50 ML VIAL ONE (18:16)
[2022-02-20] MEDS ORDERED: *HR* Dextrose 50 % in Water (Syg) 50 ML SYRINGE IVP ONE (18:17)
[2022-02-20] MEDS ORDERED: Ondansetron ODT 4 MG TAB.RAPDIS SL PRN (18:58)
[2022-02-20] MEDS ORDERED: Dextrose Gel 15 GM/37.5 ML TUBE PO PRN ×2 (18:58)
[2022-02-20] MEDS ORDERED: Melatonin 3 MG TABLET PO PRN (18:58)
[2022-02-20] MEDS ORDERED: Naloxone 0.4 MG/ML INJ IVP PRN (18:58)
[2022-02-20] MEDS ORDERED: *HR* OxyCODONE Immed Rel 5 MG TABLET PO PRN (18:58)
[2022-02-20] MEDS ORDERED: *HR* Dextrose 50 % in Water (Syg) 50 ML SYRINGE IVP PRN (18:58)
[2022-02-20] MEDS ORDERED: D5% in Water 1,000 ML IVC PRN (18:58)
[2022-02-20 20:04] LABS: Estimated Average Glucose 148 mg/dl; Hemoglobin A1C 6.8 %
[2022-02-20] MEDS ORDERED: Insulin LISPRO 300 UNITS/3 ML VIAL SUBQ SCH (21:00)
[2022-02-20] MEDS: Ampicillin/Sulbactam 3,000 MG in 0.9 % Sodium Chloride Mini Bag 100 ML IVPB SCH (23:51)
[2022-02-21] MEDS: Pregabalin 50 MG CAPSULE PO SCH ×4 (00:45→20:59)
[2022-02-21 06:01] LABS: Basophils % 0.5 %; Eosinophils # 0.3 K/mcL (0.0-0.6); Eosinophils % 4.7 %; Hematocrit 28.9 % (37.5-50.1); Hemoglobin 9.1 g/dL (12.9-16.9); Immature Granulocytes % 0.5 % (0-4); Lymphocytes # 0.7 K/mcL (0.6-4.6); Mean Corpuscular HGB Conc 31.5 g/dL (31.6-35.5); Mean Corpuscular Hemoglobin 24.9 pg (28.0-33.3); Mean Corpuscular Volume 79.2 fL (83.0-100.0); Mean Platelet Volume 9.8 fL (9.4-12.4); Monocytes # 0.5 K/mcL (0.0-1.3); Monocytes % 9.8 %; Platelet Count 445 K/mcL (140-400); Red Blood Count 3.65 M/mcL (4.19-5.50); Red Cell Distribution Width 15.2 % (11.5-14.5); Segmented Neutrophils % 72.5 %; White Blood Count 5.5 K/mcL (4.3-11.1)
[2022-02-21] MEDS: Ampicillin/Sulbactam 3,000 MG in 0.9 % Sodium Chloride Mini Bag 100 ML IVPB SCH ×2 (06:02→12:40)
[2022-02-21 06:19] LABS: Alanine Aminotransferase 9 Units/L (7-52); Albumin 3.1 g/dL (3.5-5.7); Albumin/Globulin Ratio 0.8 (1.1-2.2); Alkaline Phosphatase 84 Units/L (34-104); Aspartate Amino Transferase 11 Units/L (13-39); BUN/Creatinine Ratio 28 (6-26); Bilirubin,Total 0.2 mg/dL (0.3-1.0); Blood Urea Nitrogen 37 mg/dL (8-23); Calcium 8.5 mg/dL (8.6-10.3); Carbon Dioxide 25 mEq/L (23-29); Chloride 102 mEq/L (98-107); Globulin 3.8 g/dL (2.4-3.5); Glucose 107 mg/dL (70-105); Osmolality,Calculated 291 (280-300); Potassium 3.8 mEq/L (3.5-5.1); Sodium 136 mEq/L (136-145); Total Protein 6.9 g/dL (6.4-8.9); eGFR For African Americans > 60 (> 60); eGFR For Non-African Americans 54 (> 60)
[2022-02-21] MEDS ORDERED: Insulin LISPRO 300 UNITS/3 ML VIAL SUBQ SCH ×2 (07:30→21:00)
[2022-02-21] MEDS ORDERED: Dextrose Gel 15 GM/37.5 ML TUBE PO PRN ×2 (07:58)
[2022-02-21] MEDS ORDERED: D5% in Water 1,000 ML IVC PRN (07:58)
[2022-02-21] MEDS ORDERED: *HR* Dextrose 50 % in Water (Syg) 50 ML SYRINGE IVP PRN (07:58)
[2022-02-21] MEDS: Insulin LISPRO 300 UNITS/3 ML VIAL SUBQ SCH ×3 (08:58→18:17)
[2022-02-21] MEDS ORDERED: lisinopriL 20 MG TABLET PO SCH (09:00)
[2022-02-21] MEDS: Metoprolol 100 MG TABLET PO SCH ×2 (09:02→20:59)
[2022-02-21] MEDS: amLODIPine 5 MG TABLET PO SCH ×2 (09:02→20:59)
[2022-02-21] MEDS: Aspirin Enteric Coated 81 MG Tablet PO SCH (09:03)
[2022-02-21] MEDS: Ringers Solution, Lactated 1,000 ML IVC SCH (15:35)
[2022-02-21] MEDS ORDERED: Lidocaine 1% 20 ML MDV ONE (15:46)
[2022-02-21] MEDS ORDERED: Lidocaine -MPF 2% 5 ML VIAL ONE (15:55)
[2022-02-21] MEDS ORDERED: *HR* FentaNYL (PF) 100 MCG/2 ML VIAL ONE (15:59)
[2022-02-21] MEDS ORDERED: Ketamine HCL *QUVA* 50mg (1mL) SYRINGE ONE (16:23)
[2022-02-21] MEDS ORDERED: Vancomycin 1,500 MG/265 ML IV.SOLN IVPB SCH (20:00)
[2022-02-22] MEDS: Metoprolol 100 MG TABLET PO SCH ×2 (09:47→20:17)
[2022-02-22] MEDS: amLODIPine 5 MG TABLET PO SCH ×2 (09:47→20:17)
[2022-02-22] MEDS: Aspirin Enteric Coated 81 MG Tablet PO SCH (09:47)
[2022-02-22] MEDS: Pregabalin 50 MG CAPSULE PO SCH ×3 (09:47→20:17)
[2022-02-22] MEDS: Insulin LISPRO 300 UNITS/3 ML VIAL SUBQ SCH ×3 (09:53→17:16)
[2022-02-22 13:39] LABS: Basophils % 0.6 %; Eosinophils # 0.4 K/mcL (0.0-0.6); Eosinophils % 5.8 %; Hematocrit 28.6 % (37.5-50.1); Immature Granulocytes % 0.5 % (0-4); Lymphocytes # 0.8 K/mcL (0.6-4.6); Lymphocytes % 12.3 %; Mean Corpuscular HGB Conc 31.5 g/dL (31.6-35.5); Mean Corpuscular Hemoglobin 25.1 pg (28.0-33.3); Mean Corpuscular Volume 79.7 fL (83.0-100.0); Mean Platelet Volume 9.8 fL (9.4-12.4); Monocytes # 0.7 K/mcL (0.0-1.3); Monocytes % 11.4 %; Neutrophils # 4.4 K/mcL (1.6-8.9); Platelet Count 456 K/mcL (140-400); Red Blood Count 3.59 M/mcL (4.19-5.50); Red Cell Distribution Width 15.5 % (11.5-14.5); Segmented Neutrophils % 69.4 %; White Blood Count 6.4 K/mcL (4.3-11.1)
[2022-02-22 14:01] LABS: % Iron Saturation 6 % (20-55); Alanine Aminotransferase 9 Units/L (7-52); Albumin 3.1 g/dL (3.5-5.7); Albumin/Globulin Ratio 0.8 (1.1-2.2); Alkaline Phosphatase 95 Units/L (34-104); Aspartate Amino Transferase 9 Units/L (13-39); BUN/Creatinine Ratio 23 (6-26); Bilirubin,Direct 0.1 mg/dL (0.0-0.2); Bilirubin,Indirect 0.1 mg/dL (0.0-1.0); Bilirubin,Total 0.2 mg/dL (0.3-1.0); Blood Urea Nitrogen 33 mg/dL (8-23); Calcium 8.9 mg/dL (8.6-10.3); Carbon Dioxide 27 mEq/L (23-29); Chloride 103 mEq/L (98-107); Globulin 3.8 g/dL (2.4-3.5); Glucose 208 mg/dL (70-105); Iron 17 mcg/dL (65-175); Magnesium 1.5 mg/dL (1.6-2.6); Osmolality,Calculated 295 (280-300); Sodium 136 mEq/L (136-145); Total Protein 6.9 g/dL (6.4-8.9); Transferrin 187 mg/dL (203-362); eGFR For African Americans > 60 (> 60); eGFR For Non-African Americans 50 (> 60)
[2022-02-22 14:19] LABS: Ferritin 81 ng/mL (20-250)
[2022-02-22 14:25] LABS: Folate 8.5 ng/mL (3.0-16.0)
[2022-02-22] MEDS: Ringers Solution, Lactated 1,000 ML IVC SCH (16:06)
[2022-02-22] MEDS: Cyanocobalamin (B-12) 1,000 MCG/ML VIAL SQ SCH (16:06)
[2022-02-22] MEDS: Iron Sucrose Complex 250 MG in 0.9 % Sodium Chloride 250 ML IVPB SCH (16:56)
[2022-02-22] MEDS: Cefepime HCl 2,000 MG in 0.9 % Sodium Chloride Mini Bag 100 ML IVPB SCH (17:05)
[2022-02-22] MEDS: Insulin DETEMIR 100 UNIT/ML X5UNITS SUBQ SCH (20:17)
[2022-02-22] MEDS: Magnesium Oxide 400 MG TABLET PO SCH (20:17)
[2022-02-22] MEDS: lisinopriL 20 MG TABLET PO SCH (21:07)
[2022-02-23 06:00] LABS: Basophils % 0.6 %; Eosinophils # 0.4 K/mcL (0.0-0.6); Eosinophils % 5.6 %; Hematocrit 28.5 % (37.5-50.1); Hemoglobin 8.9 g/dL (12.9-16.9); Immature Granulocytes % 0.4 % (0-4); Lymphocytes # 0.8 K/mcL (0.6-4.6); Lymphocytes % 11.5 %; Mean Corpuscular HGB Conc 31.2 g/dL (31.6-35.5); Mean Corpuscular Hemoglobin 24.8 pg (28.0-33.3); Mean Corpuscular Volume 79.4 fL (83.0-100.0); Monocytes # 0.7 K/mcL (0.0-1.3); Monocytes % 9.7 %; Neutrophils # 5.1 K/mcL (1.6-8.9); Platelet Count 469 K/mcL (140-400); Red Blood Count 3.59 M/mcL (4.19-5.50); Red Cell Distribution Width 15.3 % (11.5-14.5); Segmented Neutrophils % 72.2 %
[2022-02-23] MEDS: Cefepime HCl 2,000 MG in 0.9 % Sodium Chloride Mini Bag 100 ML IVPB SCH ×2 (06:14→18:02)
[2022-02-23] MEDS: Pregabalin 50 MG CAPSULE PO SCH ×3 (09:17→20:38)
[2022-02-23] MEDS: lisinopriL 20 MG TABLET PO SCH (09:19)
[2022-02-23] MEDS: Magnesium Oxide 400 MG TABLET PO SCH (09:19)
[2022-02-23] MEDS: Insulin DETEMIR 100 UNIT/ML X5UNITS SUBQ SCH ×2 (09:20→20:38)
[2022-02-23] MEDS: Aspirin Enteric Coated 81 MG Tablet PO SCH (09:20)
[2022-02-23] MEDS: amLODIPine 5 MG TABLET PO SCH ×2 (09:20→20:37)
[2022-02-23] MEDS: Metoprolol 100 MG TABLET PO SCH ×2 (09:20→20:38)
[2022-02-23] MEDS: Insulin LISPRO 300 UNITS/3 ML VIAL SUBQ SCH ×3 (09:22→17:54)
[2022-02-23] MEDS: Cyanocobalamin (B-12) 1,000 MCG/ML VIAL SQ SCH (09:30)
[2022-02-23] MEDS: Iron Sucrose Complex 250 MG in 0.9 % Sodium Chloride 250 ML IVPB SCH (11:58)
[2022-02-23 18:59] LABS: Vancomycin,Trough 11 mcg/mL (5-10)
[2022-02-23] MEDS: Vancomycin 1,750 MG/517.5 ML IV.SOLN IVPB SCH (20:38)
[2022-02-24] MEDS: Acetaminophen 325 MG TABLET PO PRN ×2 (05:41→20:53)
[2022-02-24] MEDS: Cefepime HCl 2,000 MG in 0.9 % Sodium Chloride Mini Bag 100 ML IVPB SCH ×3 (05:42→23:00)
[2022-02-24] MEDS ORDERED: MetroNIDAZOLE 500 MG/100 ML 500 MG/100 ML BAG IVPB SCH ×2 (08:05→11:00)
[2022-02-24] MEDS: lisinopriL 20 MG TABLET PO SCH (09:18)
[2022-02-24] MEDS: Pregabalin 50 MG CAPSULE PO SCH ×3 (09:18→22:59)
[2022-02-24] MEDS: Metoprolol 100 MG TABLET PO SCH ×2 (09:19→20:52)
[2022-02-24] MEDS: Aspirin Enteric Coated 81 MG Tablet PO SCH (09:19)
[2022-02-24] MEDS: amLODIPine 5 MG TABLET PO SCH ×2 (09:19→20:52)
[2022-02-24] MEDS: Insulin DETEMIR 100 UNIT/ML X5UNITS SUBQ SCH ×2 (09:19→20:52)
[2022-02-24] MEDS: Insulin LISPRO 300 UNITS/3 ML VIAL SUBQ SCH ×3 (09:20→20:58)
[2022-02-24] MEDS: Ringers Solution, Lactated 1,000 ML IVC SCH (09:31)
[2022-02-24 12:54] LABS: BUN/Creatinine Ratio 24 (6-26); Blood Urea Nitrogen 32 mg/dL (8-23); Calcium 8.4 mg/dL (8.6-10.3); Carbon Dioxide 24 mEq/L (23-29); Chloride 102 mEq/L (98-107); Glucose 352 mg/dL (70-105); Magnesium 1.5 mg/dL (1.6-2.6); Osmolality,Calculated 301 (280-300); Potassium 4.1 mEq/L (3.5-5.1); Sodium 135 mEq/L (136-145); eGFR For African Americans > 60 (> 60); eGFR For Non-African Americans 54 (> 60)
[2022-02-24] MEDS: Vancomycin 1,750 MG/517.5 ML IV.SOLN IVPB SCH (20:51)
[2022-02-25] MEDS: Ringers Solution, Lactated 1,000 ML IVC SCH ×2 (00:16→17:37)
[2022-02-25 03:51] LABS: Basophils % 0.5 %; Eosinophils # 0.4 K/mcL (0.0-0.6); Eosinophils % 4.7 %; Hematocrit 26.5 % (37.5-50.1); Hemoglobin 8.4 g/dL (12.9-16.9); Immature Granulocytes % 1.1 % (0-4); Lymphocytes # 0.9 K/mcL (0.6-4.6); Lymphocytes % 10.8 %; Mean Corpuscular HGB Conc 31.7 g/dL (31.6-35.5); Mean Corpuscular Hemoglobin 24.9 pg (28.0-33.3); Mean Corpuscular Volume 78.6 fL (83.0-100.0); Mean Platelet Volume 9.8 fL (9.4-12.4); Monocytes # 0.7 K/mcL (0.0-1.3); Monocytes % 9.1 %; Platelet Count 382 K/mcL (140-400); Red Blood Count 3.37 M/mcL (4.19-5.50); Red Cell Distribution Width 15.4 % (11.5-14.5); Segmented Neutrophils % 73.8 %; White Blood Count 8.1 K/mcL (4.3-11.1)
[2022-02-25 04:27] LABS: BUN/Creatinine Ratio 20 (6-26); Blood Urea Nitrogen 29 mg/dL (8-23); Calcium 8.3 mg/dL (8.6-10.3); Carbon Dioxide 26 mEq/L (23-29); Chloride 103 mEq/L (98-107); Glucose 205 mg/dL (70-105); Magnesium 1.6 mg/dL (1.6-2.6); Osmolality,Calculated 292 (280-300); Potassium 3.7 mEq/L (3.5-5.1); Sodium 135 mEq/L (136-145); Thyroid Stimulating Hormone 1.696 mcIU/mL (0.340-5.600); eGFR For African Americans 59 (> 60); eGFR For Non-African Americans 48 (> 60)
[2022-02-25] MEDS: Aspirin Enteric Coated 81 MG Tablet PO SCH (08:39)
[2022-02-25] MEDS: Pregabalin 50 MG CAPSULE PO SCH ×3 (08:39→20:46)
[2022-02-25] MEDS: Metoprolol 100 MG TABLET PO SCH ×2 (08:40→20:47)
[2022-02-25] MEDS: Cefepime HCl 2,000 MG in 0.9 % Sodium Chloride Mini Bag 100 ML IVPB SCH (08:40)
[2022-02-25] MEDS: amLODIPine 5 MG TABLET PO SCH ×2 (08:40→20:47)
[2022-02-25] MEDS: Insulin LISPRO 300 UNITS/3 ML VIAL SUBQ SCH ×3 (08:41→17:44)
[2022-02-25] MEDS: Insulin DETEMIR 100 UNIT/ML X5UNITS SUBQ SCH ×2 (08:55→20:46)
[2022-02-25] MEDS ORDERED: Lidocaine -MPF 1% 5 ML AMPUL INFILT ONE (13:24)
[2022-02-25 19:03] VITALS: BP 138/68; PULSE 74; TEMP 97.9; O2SAT 98
[2022-02-25] MEDS ORDERED: Vancomycin 1,500 MG/265 ML IV.SOLN IVPB SCH (21:00)
== END 2022-02-25 23:09 | disposition home health service (06) | DRG 629 ==
LOC: EMEROOARM 12:23 → 4WAOSI 12:23 → SUATTDRO 18:37 → 4WAOSI 20:02
PROVIDERS: ADMIT Family Medicine; ATTEND Pharmacist

== ENCOUNTER 2022-03-16 20:31 | Inpatient (IN) ==
[2022-03-16] MEDS ORDERED: 0.9 % Sodium Chloride 1,000 ML IVC ONE (20:52)
[2022-03-16] MEDS ORDERED: Albuterol 2.5 MG/3 ML NEBULIZER IH ONE (20:54)
[2022-03-16] MEDS ORDERED: Iopamidol - 370 500 ML MLS IVP ONE (20:55)
[2022-03-16 21:18] LABS: ABG Base Excess -2 mEq/L (-2 to 3); ABG HCO3 24 mEq/L (21-27); ABG Oxygen Saturation 91 % (95-98); ABG PCO2 41 mmHg (35-45); ABG PH 7.37 pH Units (7.32-7.45); ABG PO2 63 mmHg (85-104); ABG TCO2 25 mEq/L (20-26)
[2022-03-16 21:44] LABS: Basophils % 0.5 %; Eosinophils # 0.3 K/mcL (0.0-0.6); Hematocrit 27.9 % (37.5-50.1); Hemoglobin 8.5 g/dL (12.9-16.9); Immature Granulocytes % 0.4 % (0-4); Lymphocytes # 0.6 K/mcL (0.6-4.6); Lymphocytes % 8.1 %; Mean Corpuscular HGB Conc 30.5 g/dL (31.6-35.5); Mean Corpuscular Hemoglobin 25.2 pg (28.0-33.3); Mean Corpuscular Volume 82.8 fL (83.0-100.0); Mean Platelet Volume 10.3 fL (9.4-12.4); Monocytes # 0.6 K/mcL (0.0-1.3); Monocytes % 8.5 %; Neutrophils # 5.9 K/mcL (1.6-8.9); Platelet Count 339 K/mcL (140-400); Red Blood Count 3.37 M/mcL (4.19-5.50); Red Cell Distribution Width 17.6 % (11.5-14.5); Segmented Neutrophils % 78.5 %; White Blood Count 7.5 K/mcL (4.3-11.1)
[2022-03-16 21:51] LABS: INR 1.1; Prothrombin Time 11.9 Seconds (9.4-12.1)
[2022-03-16 21:54] LABS: Activated Partial Thrombo Time 31.6 Seconds (26.0-36.0)
[2022-03-16 22:02] LABS: Alanine Aminotransferase 12 Units/L (7-52); Albumin 3.4 g/dL (3.5-5.7); Albumin/Globulin Ratio 0.9 (1.1-2.2); Alkaline Phosphatase 88 Units/L (34-104); Aspartate Amino Transferase 11 Units/L (13-39); BUN/Creatinine Ratio 25 (6-26); Bilirubin,Direct 0.1 mg/dL (0.0-0.2); Bilirubin,Indirect 0.2 mg/dL (0.0-1.0); Bilirubin,Total 0.3 mg/dL (0.3-1.0); Blood Urea Nitrogen 38 mg/dL (8-23); Calcium 8.1 mg/dL (8.6-10.3); Carbon Dioxide 26 mEq/L (23-29); Chloride 106 mEq/L (98-107); Globulin 3.8 g/dL (2.4-3.5); Glucose 83 mg/dL (70-105); Osmolality,Calculated 296 (280-300); Potassium 4.4 mEq/L (3.5-5.1); Sodium 139 mEq/L (136-145); Total Protein 7.2 g/dL (6.4-8.9); Troponin I < 0.03 ng/mL (< 0.04)
[2022-03-16 22:29] LABS: Influenza A PCR Negative (Negative); Influenza B PCR Negative (Negative); Resp. Syncytial Virus PCR Negative (Negative)
[2022-03-16 22:51] LABS: SARS-CoV-2 by PCR (In House) Negative (Negative)
[2022-03-16] MEDS ORDERED: Furosemide 40 MG/4 ML VIAL IVP ONE (23:59)
[2022-03-17] MEDS ORDERED: Melatonin 3 MG TABLET PO PRN (01:05)
[2022-03-17] MEDS ORDERED: Ondansetron 4 MG/2 ML VIAL IVP PRN (01:05)
[2022-03-17] MEDS ORDERED: Acetaminophen 325 MG TABLET PO PRN (01:05)
[2022-03-17] MEDS ORDERED: Naloxone 0.4 MG/ML INJ IVP PRN (01:05)
[2022-03-17] MEDS ORDERED: *HR* Dextrose 50 % in Water (Syg) 50 ML SYRINGE IVP PRN (01:47)
[2022-03-17] MEDS ORDERED: D5% in Water 1,000 ML IVC PRN (01:47)
[2022-03-17] MEDS ORDERED: Dextrose Gel 15 GM/37.5 ML TUBE PO PRN ×2 (01:47)
[2022-03-17] MEDS: *HR* Heparin 5,000 UNIT/ML VIAL SQ SCH ×3 (05:39→20:44)
[2022-03-17 05:51] LABS: Hemoglobin 8.4 g/dL (12.9-16.9); Mean Corpuscular HGB Conc 31.1 g/dL (31.6-35.5); Mean Corpuscular Hemoglobin 25.4 pg (28.0-33.3); Mean Corpuscular Volume 81.6 fL (83.0-100.0); Mean Platelet Volume 10.6 fL (9.4-12.4); Platelet Count 346 K/mcL (140-400); Red Blood Count 3.31 M/mcL (4.19-5.50); Red Cell Distribution Width 17.6 % (11.5-14.5); White Blood Count 7.3 K/mcL (4.3-11.1)
[2022-03-17 06:12] LABS: Calcium 8.5 mg/dL (8.6-10.3); Potassium 4.2 mEq/L (3.5-5.1)
[2022-03-17] MEDS: Insulin LISPRO 300 UNITS/3 ML VIAL SUBQ SCH ×3 (07:37→20:03)
[2022-03-17] MEDS: Furosemide 40 MG/4 ML VIAL IVP SCH (08:56)
[2022-03-17] MEDS: Pregabalin 50 MG CAPSULE PO SCH ×2 (15:42→20:43)
[2022-03-17] MEDS ORDERED: Vancomycin 1,500 MG/265 ML IV.SOLN IVPB SCH (17:00)
[2022-03-17] MEDS: Vancomycin 1,750 MG/517.5 ML IV.SOLN IVPB SCH (17:37)
[2022-03-17] MEDS: amLODIPine 5 MG TABLET PO SCH (20:44)
[2022-03-18 03:05] LABS: Basophils % 0.3 %; Eosinophils # 0.1 K/mcL (0.0-0.6); Eosinophils % 2.2 %; Hematocrit 26.3 % (37.5-50.1); Hemoglobin 8.2 g/dL (12.9-16.9); Immature Granulocytes % 0.3 % (0-4); Lymphocytes # 0.5 K/mcL (0.6-4.6); Lymphocytes % 8.9 %; Mean Corpuscular HGB Conc 31.2 g/dL (31.6-35.5); Mean Corpuscular Hemoglobin 25.3 pg (28.0-33.3); Mean Corpuscular Volume 81.2 fL (83.0-100.0); Mean Platelet Volume 10.1 fL (9.4-12.4); Monocytes # 0.6 K/mcL (0.0-1.3); Monocytes % 10.1 %; Neutrophils # 4.6 K/mcL (1.6-8.9); Platelet Count 307 K/mcL (140-400); Red Blood Count 3.24 M/mcL (4.19-5.50); Red Cell Distribution Width 17.3 % (11.5-14.5); Segmented Neutrophils % 78.2 %; White Blood Count 5.9 K/mcL (4.3-11.1)
[2022-03-18 03:24] LABS: Calcium 8.2 mg/dL (8.6-10.3); Magnesium 1.8 mg/dL (1.6-2.6); Potassium 3.9 mEq/L (3.5-5.1)
[2022-03-18] MEDS: *HR* Heparin 5,000 UNIT/ML VIAL SQ SCH ×3 (06:56→20:41)
[2022-03-18] MEDS: Insulin LISPRO 300 UNITS/3 ML VIAL SUBQ SCH ×3 (08:39→17:40)
[2022-03-18] MEDS: Pregabalin 50 MG CAPSULE PO SCH ×3 (09:23→20:41)
[2022-03-18] MEDS: amLODIPine 5 MG TABLET PO SCH ×2 (09:23→20:41)
[2022-03-18] MEDS: Aspirin Enteric Coated 81 MG Tablet PO SCH (09:23)
[2022-03-18] MEDS: Cetirizine HCl 5 MG/5 ML UDC PO SCH (09:24)
[2022-03-18] MEDS: Furosemide 40 MG/4 ML VIAL IVP SCH (09:24)
[2022-03-18] MEDS: Vancomycin 1,750 MG/517.5 ML IV.SOLN IVPB SCH (17:40)
[2022-03-19 05:10] LABS: Basophils % 0.4 %; Eosinophils # 0.2 K/mcL (0.0-0.6); Eosinophils % 4.8 %; Hematocrit 28.2 % (37.5-50.1); Hemoglobin 8.6 g/dL (12.9-16.9); Immature Granulocytes % 0.4 % (0-4); Lymphocytes # 0.6 K/mcL (0.6-4.6); Lymphocytes % 11.7 %; Mean Corpuscular HGB Conc 30.5 g/dL (31.6-35.5); Mean Corpuscular Hemoglobin 25.1 pg (28.0-33.3); Mean Corpuscular Volume 82.2 fL (83.0-100.0); Mean Platelet Volume 10.3 fL (9.4-12.4); Monocytes # 0.6 K/mcL (0.0-1.3); Monocytes % 10.9 %; Neutrophils # 3.6 K/mcL (1.6-8.9); Platelet Count 319 K/mcL (140-400); Red Blood Count 3.43 M/mcL (4.19-5.50); Red Cell Distribution Width 17.2 % (11.5-14.5); Segmented Neutrophils % 71.8 %
[2022-03-19 05:32] LABS: Calcium 8.7 mg/dL (8.6-10.3); Potassium 4.1 mEq/L (3.5-5.1)
[2022-03-19] MEDS: *HR* Heparin 5,000 UNIT/ML VIAL SQ SCH ×3 (05:47→20:48)
[2022-03-19] MEDS: Pregabalin 50 MG CAPSULE PO SCH ×3 (09:20→20:48)
[2022-03-19] MEDS: Insulin LISPRO 300 UNITS/3 ML VIAL SUBQ SCH ×3 (09:20→17:25)
[2022-03-19] MEDS: amLODIPine 5 MG TABLET PO SCH ×2 (09:20→20:48)
[2022-03-19] MEDS: Aspirin Enteric Coated 81 MG Tablet PO SCH (09:20)
[2022-03-19] MEDS: Furosemide 40 MG/4 ML VIAL IVP SCH (09:20)
[2022-03-19] MEDS: Cetirizine HCl 5 MG/5 ML UDC PO SCH (09:20)
[2022-03-19] MEDS: Vancomycin 1,750 MG/517.5 ML IV.SOLN IVPB SCH (19:10)
[2022-03-19] MEDS ORDERED: Vancomycin 1,500 MG/265 ML IV.SOLN IVPB SCH (20:00)
[2022-03-19] MEDS: Metoprolol 100 MG TABLET PO SCH (20:48)
[2022-03-20 03:16] LABS: Calcium 8.3 mg/dL (8.6-10.3); Magnesium 1.6 mg/dL (1.6-2.6); Potassium 3.9 mEq/L (3.5-5.1)
[2022-03-20] MEDS: *HR* Heparin 5,000 UNIT/ML VIAL SQ SCH ×2 (05:37→15:04)
[2022-03-20 07:20] VITALS: TEMP 98.1
[2022-03-20] MEDS: Metoprolol 100 MG TABLET PO SCH (07:47)
[2022-03-20] MEDS: amLODIPine 5 MG TABLET PO SCH (07:47)
[2022-03-20] MEDS: Pregabalin 50 MG CAPSULE PO SCH ×2 (07:47→15:04)
[2022-03-20] MEDS: Aspirin Enteric Coated 81 MG Tablet PO SCH (07:47)
[2022-03-20] MEDS: Furosemide 40 MG/4 ML VIAL IVP SCH (07:47)
[2022-03-20] MEDS: Cetirizine HCl 5 MG/5 ML UDC PO SCH (07:47)
[2022-03-20] MEDS: Insulin LISPRO 300 UNITS/3 ML VIAL SUBQ SCH ×2 (07:54→12:27)
[2022-03-20 12:35] VITALS: BP 146/71; PULSE 73; O2SAT 97
== END 2022-03-20 15:18 | disposition home health service (06) | DRG 291 ==
LOC: EMEROOARM 20:31 → SUATTDRO 03-17 11:11 → 3NENU 03-17 11:11
PROVIDERS: ADMIT Internal Medicine; ATTEND Family Medicine

== ENCOUNTER 2022-03-29 09:36 | Inpatient (IN) ==
[2022-03-29] MEDS ORDERED: Iopamidol - 370 500 ML MLS IVP ONE (10:46)
[2022-03-29 11:01] LABS: Basophils % 0.3 %; Eosinophils # 0.1 K/mcL (0.0-0.6); Eosinophils % 0.9 %; Hemoglobin 9.2 g/dL (12.9-16.9); Immature Granulocytes % 0.6 % (0-4); Lymphocytes # 0.6 K/mcL (0.6-4.6); Lymphocytes % 6.5 %; Mean Corpuscular HGB Conc 30.7 g/dL (31.6-35.5); Mean Corpuscular Hemoglobin 24.9 pg (28.0-33.3); Mean Corpuscular Volume 81.3 fL (83.0-100.0); Mean Platelet Volume 11.4 fL (9.4-12.4); Monocytes # 0.7 K/mcL (0.0-1.3); Monocytes % 7.5 %; Neutrophils # 7.4 K/mcL (1.6-8.9); Platelet Count 331 K/mcL (140-400); Red Blood Count 3.69 M/mcL (4.19-5.50); Red Cell Distribution Width 17.2 % (11.5-14.5); Segmented Neutrophils % 84.2 %; White Blood Count 8.8 K/mcL (4.3-11.1)
[2022-03-29 11:23] LABS: Alanine Aminotransferase 15 Units/L (7-52); Albumin 3.8 g/dL (3.5-5.7); Alkaline Phosphatase 101 Units/L (34-104); Aspartate Amino Transferase 20 Units/L (13-39); BUN/Creatinine Ratio 23 (6-26); Bilirubin,Direct 0.1 mg/dL (0.0-0.2); Bilirubin,Indirect 0.3 mg/dL (0.0-1.0); Bilirubin,Total 0.4 mg/dL (0.3-1.0); Blood Urea Nitrogen 41 mg/dL (8-23); Calcium 8.9 mg/dL (8.6-10.3); Carbon Dioxide 27 mEq/L (23-29); Chloride 100 mEq/L (98-107); Globulin 3.8 g/dL (2.4-3.5); Glucose 150 mg/dL (70-105); Osmolality,Calculated 293 (280-300); Phosphorous 4.2 mg/dL (2.7-4.5); Potassium 4.6 mEq/L (3.5-5.1); Sodium 135 mEq/L (136-145); Total Protein 7.6 g/dL (6.4-8.9); Troponin I < 0.03 ng/mL (< 0.04)
[2022-03-29 11:57] LABS: Influenza A PCR Negative (Negative); Influenza B PCR Negative (Negative); Resp. Syncytial Virus PCR Negative (Negative); SARS-CoV-2 by PCR (In House) Negative (Negative)
[2022-03-29] MEDS ORDERED: Ondansetron 4 MG/2 ML VIAL IVP PRN (14:11)
[2022-03-29] MEDS ORDERED: Acetaminophen 325 MG TABLET PO PRN (14:11)
[2022-03-29 14:13] LABS: VBG HCO3 30 mEq/L (21-27); VBG PCO2 62 mmHg (41-51); VBG PH 7.29 pH Units (7.32-7.42); VBG PO2 90 mmHg (25-50)
[2022-03-29] MEDS ORDERED: D5% in Water 1,000 ML IVC PRN (14:13)
[2022-03-29] MEDS ORDERED: Dextrose Gel 15 GM/37.5 ML TUBE PO PRN ×2 (14:13)
[2022-03-29] MEDS ORDERED: Metoprolol 100 MG TABLET PO SCH (14:15)
[2022-03-29] MEDS: Pregabalin 50 MG CAPSULE PO SCH ×2 (16:13→21:19)
[2022-03-29] MEDS: Furosemide 40 MG/4 ML VIAL IVP SCH (16:13)
[2022-03-29] MEDS: *HR* Heparin 5,000 UNIT/ML VIAL SQ SCH (18:06)
[2022-03-29] MEDS: Insulin LISPRO 300 UNITS/3 ML VIAL SUBQ SCH ×2 (18:31→21:20)
[2022-03-29] MEDS ORDERED: Insulin DETEMIR 100 UNIT/ML X5UNITS SUBQ SCH (21:00)
[2022-03-29] MEDS: amLODIPine 5 MG TABLET PO SCH (21:19)
[2022-03-29] MEDS: Vancomycin 1,500 MG/265 ML IV.SOLN IVPB SCH (21:34)
[2022-03-30] MEDS ORDERED: QUEtiapine Fumarate 25 MG TABLET PO ONE (01:55)
[2022-03-30] MEDS ORDERED: Ipratropium/Albuterol Neb 3 ML IH PRN (04:04)
[2022-03-30] MEDS ORDERED: Ipratropium/Albuterol Neb 3 ML ONE (04:06)
[2022-03-30 04:17] LABS: ABG Base Excess 3 mEq/L (-2 to 3); ABG HCO3 31 mEq/L (21-27); ABG Oxygen Saturation 87 % (95-98); ABG PCO2 61 mmHg (35-45); ABG PH 7.31 pH Units (7.32-7.45); ABG PO2 59 mmHg (85-104); ABG TCO2 32 mEq/L (20-26)
[2022-03-30] MEDS: *HR* Heparin 5,000 UNIT/ML VIAL SQ SCH ×2 (05:49→19:36)
[2022-03-30] MEDS ORDERED: Haloperidol Lactate 5 MG/ML VIAL IVP ONE (06:03)
[2022-03-30 06:39] LABS: Calcium 8.4 mg/dL (8.6-10.3)
[2022-03-30 06:58] LABS: Bilirubin,Urine Negative (Negative); Blood,Urine Trace (Negative); Clarity,Urine Clear (Clear); Color,Urine Light-Yellow (Yellow); Glucose,Urine (UA) Normal (Normal); Ketones,Urine Negative (Negative); Leukocyte Esterase,Urine Negative (Negative); Nitrite,Urine Negative (Negative); PH,Urine 5.5 pH Units (5.0-8.0); Protein,Urine 100 mg/dL (Neg-Trace); RBC,Urine 0-3 per hpf (0-3); Specific Gravity,Urine 1.021 (1.010-1.025); Squamous Epithelial Cell,Urine Few per hpf (None-Few); Urobilinogen,Urine Normal (Normal); WBC,Urine 0-3 per hpf (0-3)
[2022-03-30] MEDS: Dexmedetomidine HCl 400 MCG/100 ML MLS IVC SCH ×2 (08:36→23:09)
[2022-03-30] MEDS: Furosemide 40 MG/4 ML VIAL IVP SCH ×2 (08:37→19:39)
[2022-03-30] MEDS: Insulin LISPRO 300 UNITS/3 ML VIAL SUBQ SCH ×4 (08:37→19:39)
[2022-03-30] MEDS: *HR* Dextrose 50 % in Water (Syg) 50 ML SYRINGE IVP PRN ×5 (11:30→19:36)
[2022-03-30] MEDS: Aspirin Enteric Coated 81 MG Tablet PO SCH (13:37)
[2022-03-30] MEDS: Pregabalin 50 MG CAPSULE PO SCH ×3 (13:38→19:39)
[2022-03-30] MEDS: amLODIPine 5 MG TABLET PO SCH ×2 (13:38→19:39)
[2022-03-30] MEDS ORDERED: Furosemide 20 MG/2 ML VIAL IVP ONE (14:02)
[2022-03-30] MEDS: Insulin DETEMIR 100 UNIT/ML X5UNITS SUBQ SCH (19:39)
[2022-03-30] MEDS: Vancomycin 1,500 MG/265 ML IV.SOLN IVPB SCH (19:45)
[2022-03-31 01:29] LABS: Hematocrit 26.5 % (37.5-50.1); Hemoglobin 8.4 g/dL (12.9-16.9); Mean Corpuscular HGB Conc 31.7 g/dL (31.6-35.5); Mean Corpuscular Hemoglobin 25.3 pg (28.0-33.3); Mean Corpuscular Volume 79.8 fL (83.0-100.0); Mean Platelet Volume 10.9 fL (9.4-12.4); Platelet Count 290 K/mcL (140-400); Red Blood Count 3.32 M/mcL (4.19-5.50); Red Cell Distribution Width 17.7 % (11.5-14.5); White Blood Count 5.9 K/mcL (4.3-11.1)
[2022-03-31 01:52] LABS: Calcium 8.6 mg/dL (8.6-10.3); Potassium 3.7 mEq/L (3.5-5.1)
[2022-03-31] MEDS: Dexmedetomidine HCl 400 MCG/100 ML MLS IVC SCH (03:44)
[2022-03-31] MEDS: *HR* Heparin 5,000 UNIT/ML VIAL SQ SCH ×2 (06:16→16:37)
[2022-03-31] MEDS: amLODIPine 5 MG TABLET PO SCH ×2 (07:17→19:42)
[2022-03-31] MEDS: Aspirin Enteric Coated 81 MG Tablet PO SCH (07:17)
[2022-03-31] MEDS: Pregabalin 50 MG CAPSULE PO SCH ×3 (07:17→19:41)
[2022-03-31] MEDS: Furosemide 40 MG/4 ML VIAL IVP SCH ×2 (07:17→16:37)
[2022-03-31] MEDS: Insulin LISPRO 300 UNITS/3 ML VIAL SUBQ SCH ×4 (07:36→19:41)
[2022-03-31] MEDS: Melatonin 3 MG TABLET PO PRN (19:41)
[2022-03-31] MEDS: Vancomycin 1,500 MG/265 ML IV.SOLN IVPB SCH (19:48)
[2022-03-31] MEDS: Insulin DETEMIR 100 UNIT/ML X5UNITS SUBQ SCH (19:49)
[2022-04-01 00:28] LABS: Calcium 8.5 mg/dL (8.6-10.3); Magnesium 1.8 mg/dL (1.6-2.6); Potassium 3.7 mEq/L (3.5-5.1)
[2022-04-01] MEDS: *HR* Heparin 5,000 UNIT/ML VIAL SQ SCH ×2 (06:10→16:36)
[2022-04-01] MEDS: Insulin LISPRO 300 UNITS/3 ML VIAL SUBQ SCH ×4 (09:20→20:31)
[2022-04-01] MEDS: amLODIPine 5 MG TABLET PO SCH ×2 (10:39→20:30)
[2022-04-01] MEDS: Pregabalin 50 MG CAPSULE PO SCH ×3 (10:39→20:30)
[2022-04-01] MEDS: Aspirin Enteric Coated 81 MG Tablet PO SCH (10:39)
[2022-04-01] MEDS: Furosemide 40 MG/4 ML VIAL IVP SCH (10:40)
[2022-04-01] MEDS: Dexmedetomidine HCl 400 MCG/100 ML MLS IVC SCH (13:50)
[2022-04-01] MEDS: Furosemide 40 MG TABLET PO SCH (16:36)
[2022-04-01] MEDS ORDERED: Vancomycin 1,750 MG/517.5 ML IV.SOLN IVPB SCH (20:00)
[2022-04-01] MEDS: Insulin DETEMIR 100 UNIT/ML X5UNITS SUBQ SCH (20:31)
[2022-04-01] MEDS: Vancomycin 1,500 MG/265 ML IV.SOLN IVPB SCH (21:46)
[2022-04-02] MEDS: Melatonin 3 MG TABLET PO PRN ×2 (01:55→20:54)
[2022-04-02] MEDS: *HR* Heparin 5,000 UNIT/ML VIAL SQ SCH ×2 (05:32→18:41)
[2022-04-02 07:00] LABS: Calcium 8.7 mg/dL (8.6-10.3); Potassium 3.6 mEq/L (3.5-5.1)
[2022-04-02 07:24] LABS: Magnesium 1.8 mg/dL (1.6-2.6)
[2022-04-02] MEDS: Pregabalin 50 MG CAPSULE PO SCH ×3 (08:46→20:47)
[2022-04-02] MEDS: Aspirin Enteric Coated 81 MG Tablet PO SCH (08:46)
[2022-04-02] MEDS: amLODIPine 5 MG TABLET PO SCH ×2 (08:46→20:46)
[2022-04-02] MEDS: Insulin LISPRO 300 UNITS/3 ML VIAL SUBQ SCH ×4 (08:46→21:39)
[2022-04-02] MEDS: Furosemide 40 MG TABLET PO SCH (08:47)
[2022-04-02] MEDS ORDERED: Magnesium Oxide 400 MG TABLET PO ONE (10:24)
[2022-04-02 11:22] LABS: Hematocrit 27.6 % (37.5-50.1); Hemoglobin 8.5 g/dL (12.9-16.9); Mean Corpuscular HGB Conc 30.8 g/dL (31.6-35.5); Mean Corpuscular Hemoglobin 25.1 pg (28.0-33.3); Mean Corpuscular Volume 81.4 fL (83.0-100.0); Mean Platelet Volume 10.4 fL (9.4-12.4); Platelet Count 303 K/mcL (140-400); Red Blood Count 3.39 M/mcL (4.19-5.50); White Blood Count 7.2 K/mcL (4.3-11.1)
[2022-04-02] MEDS: Insulin DETEMIR 100 UNIT/ML X5UNITS SUBQ SCH (21:39)
[2022-04-03 03:59] LABS: Hematocrit 27.7 % (37.5-50.1); Hemoglobin 8.6 g/dL (12.9-16.9); Mean Corpuscular Hemoglobin 24.7 pg (28.0-33.3); Mean Corpuscular Volume 79.6 fL (83.0-100.0); Platelet Count 336 K/mcL (140-400); Red Blood Count 3.48 M/mcL (4.19-5.50); Red Cell Distribution Width 16.9 % (11.5-14.5); White Blood Count 6.8 K/mcL (4.3-11.1)
[2022-04-03 04:17] LABS: Calcium 8.6 mg/dL (8.6-10.3); Potassium 3.6 mEq/L (3.5-5.1)
[2022-04-03] MEDS: *HR* Heparin 5,000 UNIT/ML VIAL SQ SCH (06:06)
[2022-04-03] MEDS ORDERED: Magnesium Oxide 400 MG TABLET PO ONE (06:43)
[2022-04-03] MEDS: Insulin LISPRO 300 UNITS/3 ML VIAL SUBQ SCH ×2 (08:03→12:09)
[2022-04-03] MEDS: Aspirin Enteric Coated 81 MG Tablet PO SCH (08:19)
[2022-04-03] MEDS: Pregabalin 50 MG CAPSULE PO SCH (08:19)
[2022-04-03] MEDS: amLODIPine 5 MG TABLET PO SCH (08:19)
[2022-04-03] MEDS ORDERED: Furosemide 40 MG TABLET PO SCH (09:00)
[2022-04-03 14:37] VITALS: BP 147/74; PULSE 71; TEMP 98.2; O2SAT 93
== END 2022-04-03 16:35 | disposition home health service (06) | DRG 291 ==
LOC: 2ANU 09:36 → EMEROOARM 09:36 → SUATTDRO 14:07 → 2ANU 15:00 → 2NNU 03-30 07:51 → SUATTDRO 03-30 10:32 → 2ANU 04-02 17:48
PROVIDERS: ADMIT Internal Medicine; ATTEND Internal Medicine

== ENCOUNTER 2022-04-30 17:51 | Inpatient (IN) ==
[2022-04-30 23:44] LABS: Basophils % 0.4 %; Eosinophils # 0.1 K/mcL (0.0-0.6); Eosinophils % 1.6 %; Hematocrit 28.1 % (37.5-50.1); Hemoglobin 8.8 g/dL (12.9-16.9); Immature Granulocytes % 0.5 % (0-4); Lymphocytes # 0.7 K/mcL (0.6-4.6); Lymphocytes % 8.4 %; Mean Corpuscular HGB Conc 31.3 g/dL (31.6-35.5); Mean Corpuscular Hemoglobin 24.7 pg (28.0-33.3); Mean Corpuscular Volume 78.9 fL (83.0-100.0); Mean Platelet Volume 9.8 fL (9.4-12.4); Monocytes # 0.7 K/mcL (0.0-1.3); Monocytes % 8.2 %; Neutrophils # 6.5 K/mcL (1.6-8.9); Platelet Count 515 K/mcL (140-400); Red Blood Count 3.56 M/mcL (4.19-5.50); Red Cell Distribution Width 15.9 % (11.5-14.5); Segmented Neutrophils % 80.9 %; White Blood Count 8.1 K/mcL (4.3-11.1)
[2022-04-30 23:57] LABS: INR 1.2; Prothrombin Time 13.3 Seconds (9.4-12.1)
[2022-05-01 00:08] LABS: Potassium 4.1 mEq/L (3.5-5.1)
[2022-05-01] MEDS ORDERED: Vancomycin 1,750 MG/517.5 ML IV.SOLN IVPB ONE (01:00)
[2022-05-01] MEDS ORDERED: Naloxone 0.4 MG/ML INJ IVP PRN (01:55)
[2022-05-01] MEDS ORDERED: Melatonin 3 MG TABLET PO PRN (01:55)
[2022-05-01] MEDS ORDERED: Ondansetron ODT 4 MG TAB.RAPDIS SL PRN (01:55)
[2022-05-01] MEDS ORDERED: *HR* Dextrose 50 % in Water (Syg) 50 ML SYRINGE IVP PRN (01:59)
[2022-05-01] MEDS ORDERED: Dextrose Gel 15 GM/37.5 ML TUBE PO PRN ×2 (01:59)
[2022-05-01] MEDS ORDERED: D5% in Water 1,000 ML IVC PRN (01:59)
[2022-05-01] MEDS: Piperacillin/Tazobactam 3.375 GM in 0.9 % Sodium Chloride Mini Bag 100 ML IVPB SCH ×3 (02:38→18:54)
[2022-05-01] MEDS ORDERED: Cefepime HCl 1,000 MG in 0.9 % Sodium Chloride 10 ML IVP SCH (08:00)
[2022-05-01 08:24] LABS: Basophils % 0.4 %; Eosinophils # 0.2 K/mcL (0.0-0.6); Eosinophils % 3.1 %; Hematocrit 27.5 % (37.5-50.1); Hemoglobin 8.4 g/dL (12.9-16.9); Immature Granulocytes % 0.4 % (0-4); Lymphocytes # 0.8 K/mcL (0.6-4.6); Lymphocytes % 11.3 %; Mean Corpuscular HGB Conc 30.5 g/dL (31.6-35.5); Mean Corpuscular Hemoglobin 24.1 pg (28.0-33.3); Mean Platelet Volume 9.9 fL (9.4-12.4); Monocytes # 0.8 K/mcL (0.0-1.3); Monocytes % 10.1 %; Neutrophils # 5.5 K/mcL (1.6-8.9); Platelet Count 512 K/mcL (140-400); Red Blood Count 3.48 M/mcL (4.19-5.50); Red Cell Distribution Width 15.9 % (11.5-14.5); Segmented Neutrophils % 74.7 %; White Blood Count 7.4 K/mcL (4.3-11.1)
[2022-05-01 08:31] LABS: INR 1.2; Prothrombin Time 13.6 Seconds (9.4-12.1)
[2022-05-01 08:39] LABS: Calcium 8.8 mg/dL (8.6-10.3); Magnesium 2.1 mg/dL (1.6-2.6); Phosphorous 4.1 mg/dL (2.7-4.5); Potassium 3.8 mEq/L (3.5-5.1)
[2022-05-01] MEDS: Insulin LISPRO 300 UNITS/3 ML VIAL SUBQ SCH ×3 (09:21→16:56)
[2022-05-01] MEDS: Insulin DETEMIR 100 UNIT/ML X5UNITS SUBQ SCH ×2 (09:21→20:41)
[2022-05-01] MEDS: Cyanocobalamin (B-12) 1,000 MCG TABLET PO SCH (10:05)
[2022-05-01] MEDS ORDERED: Insulin LISPRO 300 UNITS/3 ML VIAL SUBQ SCH (21:00)
[2022-05-01] MEDS: Pregabalin 50 MG CAPSULE PO SCH (22:00)
[2022-05-02] MEDS: Piperacillin/Tazobactam 3.375 GM in 0.9 % Sodium Chloride Mini Bag 100 ML IVPB SCH ×3 (01:28→20:03)
[2022-05-02] MEDS ORDERED: Vancomycin 1,250 MG/262.5 ML IV.SOLN IVPB SCH (04:00)
[2022-05-02 08:13] LABS: Basophils % 0.4 %; Eosinophils # 0.2 K/mcL (0.0-0.6); Eosinophils % 3.1 %; Hematocrit 26.2 % (37.5-50.1); Immature Granulocytes % 0.4 % (0-4); Lymphocytes # 0.7 K/mcL (0.6-4.6); Lymphocytes % 10.2 %; Mean Corpuscular HGB Conc 30.5 g/dL (31.6-35.5); Mean Corpuscular Hemoglobin 24.2 pg (28.0-33.3); Mean Corpuscular Volume 79.4 fL (83.0-100.0); Mean Platelet Volume 10.1 fL (9.4-12.4); Monocytes # 0.7 K/mcL (0.0-1.3); Monocytes % 9.8 %; Neutrophils # 5.4 K/mcL (1.6-8.9); Platelet Count 522 K/mcL (140-400); Red Cell Distribution Width 16.1 % (11.5-14.5); Segmented Neutrophils % 76.1 %
[2022-05-02 08:42] LABS: Calcium 8.7 mg/dL (8.6-10.3); Magnesium 1.9 mg/dL (1.6-2.6); Phosphorous 3.6 mg/dL (2.7-4.5); Potassium 4.4 mEq/L (3.5-5.1)
[2022-05-02] MEDS ORDERED: Aspirin Enteric Coated 81 MG Tablet PO SCH (09:00)
[2022-05-02] MEDS ORDERED: Metoprolol 100 MG TABLET PO SCH (09:00)
[2022-05-02] MEDS: Cyanocobalamin (B-12) 1,000 MCG TABLET PO SCH (09:17)
[2022-05-02] MEDS: Pregabalin 50 MG CAPSULE PO SCH ×2 (09:17→15:31)
[2022-05-02] MEDS: Insulin DETEMIR 100 UNIT/ML X5UNITS SUBQ SCH (09:18)
[2022-05-02] MEDS: Insulin LISPRO 300 UNITS/3 ML VIAL SUBQ SCH ×3 (09:20→17:26)
[2022-05-02 17:09] VITALS: BP 141/78; PULSE 76; TEMP 98.2; O2SAT 96
[2022-05-02] MEDS ORDERED: amLODIPine 5 MG TABLET PO SCH (21:00)
== END 2022-05-02 20:14 | disposition short-term general hospital (02) | DRG 638 ==
LOC: 4WAOSI 17:51 → EMEROOARM 17:51 → OBSVTOIN 05-01 02:19 → 4WAOSI 05-01 03:17
PROVIDERS: ADMIT Internal Medicine; ATTEND Internal Medicine